=== PATIENT | male | born 1945 | race Caucasian/White ===

== ENCOUNTER 2023-06-17 07:05 | Outpatient (OUT) | payer MEDICARE, SELFPAY ==
[2023-06-17 07:45] LABS: Basophils Absolute Auto 0.1 10^3/uL (0.0-0.1); Basophils Percent Auto 1.1 % (0.2-2.0); Eosinophils Absolute Auto 0.3 10^3/uL (0.0-0.7); Eosinophils Percent Auto 3.1 % (0.9-7.0); Hematocrit 45.5 % (42.0-54.0); Hemoglobin 15.6 g/dL (14.0-18.0); Immature Granulocytes Abs Auto 0.04 10^3/uL (0.00-0.03); Immature Granulocytes Pct Auto 0.4 % (0.0-0.5); Lymphocytes Absolute Auto 2.4 10^3/uL (1.2-3.8); Lymphocytes Percent Auto 23.7 % (20.5-60.0); Mean Corpuscular HGB Conc 34.3 g/dL (29.9-35.2); Mean Corpuscular Hemoglobin 29.8 pg (25.9-34.0); Mean Platelet Volume 9.9 fL (9.5-13.5); Monocytes Absolute Auto 1.1 10^3/uL (0.3-0.8); Monocytes Percent Auto 10.8 % (1.7-12.0); Neutrophils Percent Auto 60.9 % (43.0-75.0); Platelet Count 265 10^3/uL (150-450); Red Blood Count 5.23 10^6/uL (4.70-6.10); Red Cell Distribution Width 11.9 % (11.0-15.0); White Blood Count 9.9 10^3/uL (4.0-11.0)
[2023-06-17 10:27] LABS: Alanine Aminotransferase 30 U/L (16-63); Albumin Level 3.8 g/dL (3.4-5.0); Alkaline Phosphatase 75 U/L (46-116); Anion Gap 9.5; Aspartate Amino Transferase 14 U/L (15-37); BUN Creatinine Ratio 6.9; Calcium 9.6 mg/dL (8.5-10.1); Carbon Dioxide 30.7 mmol/L (21.0-32.0); Chloride 98 mmol/L (98-107); Cholesterol 170 mg/dL (<=200); Estimated GFR (African America >60 (>=60); Estimated GFR (Non-African Ame >60 (>=60); Globulin 3.7 g/dL; Glucose 111 mg/dL (74-106); HDL Cholesterol 43 mg/dL (40-60); Potassium 3.2 mmol/L (3.5-5.1); Sodium 135 mmol/L (136-145); Total Protein 7.5 g/dL (6.4-8.2); Triglycerides 187 mg/dL (<=150); VLDL CHOLESTEROL 37.4 mg/dL
[2023-06-17 11:59] LABS: Prostate Specific Antigen Scrn <0.13 ng/mL (<=4.00)
== END 2023-06-17 07:06 | disposition home or self-care (01) ==
LOC: LAB 07:11
PROVIDERS: PCP Nurse Practitioner Family; Visit Provider Nurse Practitioner Family
DX: Z12.5 Encounter for screening for malignant neoplasm of prostate (principal); Z85.46 Personal history of malignant neoplasm of prostate; I10 Essential (primary) hypertension
CPT/HCPCS: 36415; 80053; 80061; 85025; G0103

== ENCOUNTER 2024-06-01 10:24 | Outpatient (OUT) | payer MEDICARE, SELFPAY ==
--- OUTSIDE RECORDS SUMMARY | 2024-06-01 10:36 | XMS_ITS | CCD ---
Author Organization [facility] Care Team Providers Care Egg Trayer Name Role Phone Justin George Unavailable DO Avery Gordon Primary Care Provider [phone] MD Justin George Attending Provider Avery Gordon Primary Care Physician [phone] MD Abdiel ROSAS Attending Unavailable HOUSE, DR GRULLON Consulting Unavailable HOUSE, DR GRULLON Primary Care Unavailable HOUSE, DR GRULLON Attending Unavailable HOUSE, DR GRULLON Admitting Unavailable ROSAS ., DR MARTINES Consulting Unavailable HOUSE, DR GRULLON Primary Care Unavailable ROSAS ., DR MARTINES Attending Unavailable ROSAS ., DR MARTINES Admitting Unavailable HOUSE, DR GRULLON Consulting Unavailable HOUSE, DR GRULLON Primary Care Unavailable HOUSE, DR GRULLON Attending Unavailable HOUSE, DR GRULLON Admitting Unavailable ZIEBER, DR NEIL Wilkerson Consulting Unavailable MARKER ., DR STANLEY Consulting Unavailable MARKER ., DR STANLEY Attending Unavailable MARKER ., DR STANLEY Admitting Unavailable HOUSE, DR GRULLON Primary Care Unavailable GRILLIS ., DR BLAS Leon Consulting Unavaila ble HOUSE, DR GRULLON Primary Care Unavailable GRILLIS ., DR BLAS Leon Attending Unavaila ble GRILLIS ., DR BLAS Leon Admitting Unavaila ble GRILLIS ., DR BLAS Leon Consulting Unavaila ble HOUSE, DR GRULLON Primary Care Unavailable GRILLIS ., DR BLAS Leon Attending Unavaila ble GRILLIS ., DR BLAS Leon Admitting Unavaila ble GRILLIS ., DR BLAS Leon Consulting Unavaila ble HOUSE, DR GRULLON Primary Care Unavailable GRILLIS ., DR BLAS Leon Attending Unavaila ble GRILLIS ., DR BLAS Leon Admitting Unavaila ble GRILLIS ., DR BLAS Leon Consulting Unavaila ble HOUSE, DR GRULLON Primary Care Unavailable GRILLIS ., DR BLAS Leon Attending Unavaila ble GRILLIS ., DR BLAS Leon Admitting Unavaila ble BENITEZ II, MARIELENA Consulting CHARISMA Ivey Consulting Unavailable PAULAILLIJames ., DR BLAS Leon Consulting Unavaila ble HOUSE, DR GRULLON Primary Care Unavailable CHUYITA ., DR BLAS Leon Attending Unavaila minoo BOOGIE ., DR BLAS Leon Admitting Unavaila AVRIL Stone Consulting Unavailable NOHEMY KOCH Consulting Unavailable MD Justin George Attending Provider [phone] NON STAFF Primary Care Provider UnavailEdwina Villa Unavailable DAVID Carty Primary Care Provider DAVID Zuniga Attending Provider Edwina Carty Primary Care Unavailable Oriana Zuniga Admitting Unavailable Oriana Zuniga Attending Unavailable Edwina Carty Attending Unavailable Edwina Carty Admitting Unavailable Edwina Carty Primary Care Unavailable Allergies Allergy Classification Reported Allergen(s) Allergy Type Date of Onset Reaction(s) Facility (1 source) bacitracin / neomycin / polymyxin b Drug Allergy Unknown [facility] Other (6 sources) Chocolate; Translations: [Chocolate] Propensity to adverse reactions Unknown (qualifier value) [facility] (7 sources) Milk Propensity to adverse reactions 4 Unknown, Unknown Reaction [facility] (3 sources) triple antibiotic Drug allergy Unknown [facility] Other (5 sources) Chocolate Allergy to substance 8 Swelling of Lip/Tongue/Thr oat [facility] (5 sources) butter Allergy to substance 8 Swelling of Lip/Tongue/Thr oat [facility] (5 sources) pizza hut pizza Allergy to substance 8 Swelling of Lip/Tongue/Thr oat [facility] (2 sources) Milk Products; Translations: [Milk Products] Drug allergy Unknown (qualifier value) [facility] (3 sources) Bacitracin Drug Allergy 4 Unknown Reaction [facility] (3 sources) Neomycin Drug Allergy 4 Unknown Reaction [facility] (3 sources) polymyxin B Allergy to substance Unknown Reaction [facility] Medications Current Medications Medication Drug Class(es) Dates Sig (Normalized) Sig (Original) calcium carbonate 1500 mg / cholecalciferol 800 unt chewable tablet (5 sources) Vitamin D Start: 11-28-2017 take 1 tablet by mouth once daily Calcium Carbonate-Vitamin D3 (Caltrate 600 Plus D) 600 mg (1,500 mg)-800 unit Tablet,Chewable Active 1 TAB PO Daily November 28, 2017 12:00am Centrum Silver (2 sources) Centrum Silver Active cholestyramine resin 4000 mg powder for oral suspension (8 sources) Bile Acid Sequestrant Start: 12-05-2023 take 9 g by mouth once daily Cholestyramine (With Sugar) Active 9 GM PO Daily 378 December 05, 2023 1:24pm mix in 8 oz of fluid Start: 12-05-2023 End: 12-05-2023 take 4 g by mouth once daily Cholestyramine (With Suga r) Discontinued 4 GM PO Daily 378 December 05, 2023 9:27am December 05, 2023 1:25pm mix in 8 oz of fluid Start: 12-05-2023 End: 12-05-2023 take 4 g by mouth once daily Cholestyramine (With Suga r) Discontinued 4 GM PO Daily 378 December 05, 2023 12:00am December 05, 2023 9:27am mix in 8 oz of fluid take 1 dose by mouth once daily Cholestyramine 4 GM 1 packet mixed with water or non-carbonated drink Orally Once a day Active fexofenadine hydrochloride 180 mg oral tablet (8 sources) Histamine-1 Receptor Antagonist Start: 09-21-2023 End: 12-05-2023 take 180 mg by mouth once daily Fexofenadine Active 180 MG PO Daily 90 90 December 05, 2023 9:27am Start: 05-29-2021 take 1 mg by mouth once daily fexofenadine 180 mg Tab mg tab(s), Oral, Daily, Refills(s) 0 Start Date: 05/29/21 Status: Ordered hydroCHLOROthiazide 25 mg oral tablet (16 sources) Thiazide Diuretic Start: 09-21-2023 End: 11-28-2023 take 25 mg by mouth once daily Hydrochlorothiazide Active 25 MG PO Daily 90 90 November 28, 2023 10:21am Start: 11-28-2017 End: 09-21-2023 take 1 tablet by mouth once daily Hydrochlorothiazide Discontinued 1 TAB PO Daily November 28, 2017 12:00am September 21, 2023 9:21am [facility]-four [facility] hydroCHLOROthiazide 25 MG 1 tablet in the morning Orally Once a day Active Milk of Magnesia 400 MG/5ML (1 source) take 5 mL by mouth four times daily as needed Milk of Magnesia 400 MG/5ML 5 ml as needed Orally Four times a day Active Multivitamin-Minerals- Lutein (3 sources) Start: 4 take 1 tablet by mouth once daily Multivitamin-Minerals -Lutein Active 1 TAB PO Daily September 21, 2023 12:00am pantoprazole 40 mg delayed release oral tablet (9 sources) Proton Pump Inhibitor Start: 4 End: 4 take 40 mg by mouth once daily Pantoprazole Active 40 MG PO Daily 90 90 November 28, 2023 10:21am Start: 07-26-2022 Pantoprazole [address] Tab Refills(s) 0 Start Date: 07/26/22 Status: Ordered potassium chloride 10 meq extended release oral tablet (12 sources) Start: 09-21-2023 End: 11-28-2023 take 10 mEq by mouth twice daily Potassium Chloride Active 10 MEQ PO Twice daily 180 90 November 28, 2023 10:21am Start: 09-21-2023 End: 09-21-2023 take 10 mEq by mouth twice daily Potassium Chloride Discontinued 10 MEQ PO Twice daily September 21, 2023 12:00am September 21, 2023 9:34am Start: 05-29-2021 [facility] daily potassium chloride 20 mEq ER Tab mEq tab(s), Oral, BID, Refills(s) 0 Start Date: 05/29/21 Status: Ordered take 1 capsule by [facility] every twelve hours Potassium Chloride ER 10 MEQ 1 capsule with food Orally Twice a day Active Completed/Discontinued Medications Medication Drug Class(es) Dates Sig (Normalized) Sig (Original) acetaminophen 325 mg / oxyCODONE hydrochloride 5 mg oral tablet (5 sources) Opioid Agonist Start: 04-09-2018 End: 09-21-2023 take 1 tablet by mouth every four to six hours Oxycodone-Acetamin ophen (Percocet) 5-325 mg tablet Discontinued 1 TAB PO EVERY 4-6 HOURS 20 April 09, 2018 September 21, 2023 9:21am cephalexin 500 mg oral capsule (10 sources) Cephalosporin Antibacterial Start: 04-09-2018 End: 09-21-2023 take 1 capsule by mouth once daily Cephalexin (Keflex) 500 mg capsule Discontinued 500 MG PO Daily April 09, 2018 11:10am September 21, 2023 9:20am Start: 03-29-2018 End: 04-09-2018 take 1 capsule by mouth every eight hours Cephalexin (Keflex) 500 mg capsule Discontinued 500 MG PO Q8H March 29, 2018 12:00am April 09, 2018 11:10am Cholestyramine-Aspartame (Cholestyramine Light) 4 gram powder in packet (3 sources) Start: 09-21-2023 End: 11-28-2023 Cholestyramine-Aspartame (Cholestyramine Light) 4 gram powder in packet Discontinued 1 EACH PO Daily September 21, 2023 12:00am November 28, 2023 9:41am cyclobenzaprine hydrochloride 10 mg oral tablet (5 sources) Muscle Relaxant Start: 03-29-2018 End: 09-21-2023 take 10 mg by mouth three times daily Cyclobenzaprine Discontinued 10 MG PO Three times daily March 29, 2018 12:00am September 21, 2023 9:21am docusate sodium 100 mg oral capsule (5 sources) Start: 04-09-2018 End: 09-21-2023 take 1 capsule by mouth once daily Docusate Sodium (Colace) 100 mg Capsule Discontinued 100 MG PO Daily April 09, 2018 12:00am September 21, 2023 9:21am Magnesium Hydroxide (11 sources) Start: 09-21-2023 End: 11-28-2023 take 1 mL by mouth four times daily Magnesium Hydroxide Discontinued 5 ML PO Four times daily September 21, 2023 12:00am November 28, 2023 9:41am Start: 03-20-2018 End: 04-09-2018 take 1 mL by mouth once daily Magnesium Hydroxide (Mil k Of Magnesia) 400 mg/5 mL Suspension Discontinued 15 - 30 ML PO Daily March 20, 2018 12:00am April 09, 2018 11:09am take 5 mL by mouth f our times daily as needed Milk of Magnesia 400 MG/5ML 5 ml as needed Orally Four times a day Active take 5 mL by mouth f our times daily as needed Milk of Magnesia 400 MG/5ML 5 ml as needed Orally Four times a day Active omeprazole 20 mg delayed release oral capsule (7 sources) Proton Pump Inhibitor Start: 03-20-2018 End: 09-21-2023 take 20 mg by mouth once daily Omeprazole Discontinued 20 MG PO Daily March 20, 2018 12:00am September 21, 2023 9:21am oxyCODONE hydrochloride 5 mg oral tablet (5 sources) Opioid Agonist Start: 03-29-2018 End: 09-21-2023 take 1 tablet by mouth every six hours Oxycodone (Roxicodone) 5 mg Tablet Discontinued 1 - 2 TAB PO Q6H 60 March 29, 2018 September 21, 2023 9:21am predniSONE 10 mg oral tablet (10 sources) Start: 04-09-2018 End: 09-21-2023 take 60 mg by mouth once daily, then take 40 mg by mouth once daily, then take 20 mg by mouth once daily, then take 10 mg by mouth once daily Prednisone Discontinued 10 MG PO Daily 39 April 09, 2018 12:00am September 21, 2023 9:21am 60mg daily x 3 days, 40 mg daily x 3 days, 20mg daily x 3 days, 10mg daily x 3 days Start: 03-29-2018 End: 09-21-2023 Prednisone Discontinued 1 do se pk PO per package directions March 29, 2018 12:00am September 21, 2023 9:21am take 4 tabs for 3 days then take 3 tabs for 3 days then take 2 tabs for 3 days then take 1 tab for 3 days Start: 03-29-2018 Prednisone Act daysi 1 dose pk PO per package directions March 29, 2018 12:00am take 4 tabs for 3 days then take 3 tabs for 3 days then take 2 tabs for 3 days then take 1 tab for 3 days Problems Active Problems Problem Classification Problem Date Documented Date Episodic/Chronic Cancer of prostate (10 sources) Personal history of malignant neoplasm of prostate; Translations: [History of malignant neoplasm of prostate] Onset: 07-26-2022 Episodic Cardiac dysrhythmias (5 sources) Supraventricular tachycardia; Translations: [Ventricular premature depolarization] Onset: 01-15-2022 Chronic Disorders of lipid metabolism (5 sources) Hyperlipidemia; Translations: [Hypertriglyceridemia] 01-11-2019 Chronic Esophageal disorders (9 sources) Gastroesophageal reflux disease; Translations: [Gastro-esophageal reflux disease without esophagitis] Onset: 03-24-2022 01-11-2019 Chronic Essential hypertension (10 sources) Hypertensive disorder; Translations: [Essential (primary) hypertension] Onset: 08-03-2022 01-11-2019 Chronic Genitourinary symptoms and ill-defined conditions (9 sources) Nocturia; Translations: [Nocturia] Onset: 05-17-2022 Episodic Other acquired deformities (4 sources) Lumbar spondylolisthesis; Translations: [Spondylolisthesis, lumbar region] Episodic Other acquired deformities (2 sources) Spondylolisthesis, lumbar region; Translations: [Spondylolisthesis of lumbar region M43.16] Onset: 04-09-2021 Resolved: 04-09-2021 Episodic Other acquired deformities (2 sources) Acquired spondylolisthesis; Translations: [Spondylolisthesis, lumbar region] Episodic Other aftercare (1 source) Other fdc (current) drug therapy; Translations: [[facility] CURRENT DRUG THERAPY] Onset: 08-03-2022 Episodic Other and unspecified benign neoplasm (5 sources) 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, face and neck; Translations: [SARAH LIPOMAT RADHA SKIN SUBQ HEAD NECK] Onset: 07-26-2022 Episodic Other connective tissue disease (2 sources) Arthrodesis status; Translations: [Arthrodesis status] Episodic Other connective tissue disease (2 sources) Triggering of digit; Translations: [Trigger finger, unspecified finger] 11-28-2023 Episodic Other connective tissue disease (1 source) History of lumbar fusion; Translations: [Arthrodesis status] 03-27-2024 Episodic Other male genital disorders (1 source) Impotence 04-30-2019 Chronic Other non-traumatic joint disorders (4 sources) Arthralgia of the pelvic region and thigh; Translations: [Pain in right hip] Episodic Other nutritional; endocrine; and metabolic disorders (1 source) Obesity, unspecified; Translations: [OBESITY UNSPECIFIED] Onset: 03-24-2022 Chronic Other nutritional; endocrine; and metabolic disorders (1 source) Body mass index (BMI) 33.0-33.9, adult; Translations: [BODY MASS INDEX BMI 33.0-33.9 ADULT] Onset: 03-24-2022 Chronic Other screening for suspected conditions (not mental disorders or infectious disease) (1 source) Encounter for screening for malignant neoplasm of prostate Episodic Other upper respiratory disease (4 sources) Seasonal allergy; Translations: [Other seasonal allergic rhinitis] 12-05-2023 Chronic Other upper respiratory disease (1 source) Other seasonal allergic rhinitis Chronic Residual codes; unclassified (1 source) Acquired absence of other specified parts of digestive tract; Translations: [ACQ ABSENCE OTH PART DIGESTV TRACT] Onset: 08-03-2022 Episodic Residual codes; unclassified (1 source) Acquired absence of other genital organ(s); Translations: [ACQUIRED ABSENCE OTH GENITAL ORGANS] Onset: 08-03-2022 Episodic Spondylosis; intervertebral disc disorders; other back problems (4 sources) Lumbosacral spondylosis; Translations: [Spondylosis without myelopathy or radiculopathy, lumbosacral region] Chronic Spondylosis; intervertebral disc disorders; other back problems (15 sources) Low back pain; Translations: [Low back pain] Onset: 04-09-2021 Resolved: 04-09-2021 Episodic Unclassified (1 source) CONTACT W/AND (SUSP) EXPOS COVID-19; Translations: [CONTACT W/AND (SUSP) EXPOS COVID-19] Onset: 03-17-2022 Past or Other Problems Problem Classification Problem Date Documented Date Episodic/Chronic Abdominal pain (5 sources) Right upper quadrant pain; Translations: [RIGHT UPPER QUADRANT PAIN] Onset: 01-08-2022 Episodic Acquired foot deformities (1 source) Foot drop, left foot; Translations: [Foot drop, left M21.372] Onset: 04-09-2021 Resolved: 04-09-2021 Episodic Biliary tract disease (6 sources) Other specified diseases of gallbladder; Translations: [Calculus of gallbladder without cholecystitis without obstruction] Onset: 01-15-2022 Episodic Cardiac dysrhythmias (4 sources) Palpitations; Translations: [PALPITATIONS] Onset: 01-13-2022 Episodic Results Test Name Value Interpretation Reference Range Facility Complete Blood Count Auto Di ffon 12-09-2024 Basophils (Bld) [#/Vol] 0.1 10*3/uL Normal 0.0-0.2 [facility] Comment on above: Order Comment: Reaso n for Exam Primary hypertension Result Comment: PERF ORMED BY: [place] [address] PATHOLOGIST SUPERVISOR YARD MARTELL LEW M.D. Performed By: #### L IPID, CBC, CMP #### [place] [address] [place] Basophils/100 WBC (Bld) 0.7 % Normal . [facility] Comment on above: Order Comment: Reaso n for Exam Primary hypertension Performed By: #### L IPID, CBC, CMP #### [place] [address] [place] Eosinophils (Bld) [#/Vol] 0.2 10*3/uL Normal 0.0-0.45 [facility] Comment on above: Order Comment: Reaso n for Exam Primary hypertension Performed By: #### L IPID, CBC, CMP #### [place] [address] [place] Eosinophils/100 WBC (Bld) 2.6 % Normal . [facility] Comment on above: Order Comment: Reaso n for Exam Primary hypertension Performed By: #### L IPID, CBC, CMP #### [place] [address] [place] Erythrocyte distribution width (RBC) [Ratio] 12.8 % Normal 12.0-14.8 [facility] Comment on above: Order Comment: Reaso n for Exam Primary hypertension Performed By: #### L IPID, CBC, CMP #### [place] [address] [place] Hematocrit (Bld) [Volume fraction] 45.7 % Normal 38.8-50.0 [facility] Comment on above: Order Comment: Reaso n for Exam Primary hypertension Performed By: #### L IPID, CBC, CMP #### [place] [address] [place] Hemoglobin (Bld) [Mass/Vol] 15.7 g/dL Normal 13.0-17.0 [facility] Comment on above: Order Comment: Reaso n for Exam Primary hypertension Performed By: #### L IPID, CBC, CMP #### [address] Lymphocytes (Bld) [#/Vol] 1.9 10*3/uL Normal 1.00-4.8 [facility] Comment on above: Order Comment: Reaso n for Exam Primary hypertension Performed By: #### L IPID, CBC, CMP #### [address] Lymphocytes/100 WBC (Bld) 22.1 % Normal . [facility] Comment on above: Order Comment: Reaso n for Exam Primary hypertension Performed By: #### L IPID, CBC, CMP #### [address] MCH (RBC) [Entitic mass] 30.1 pg Normal 27.5-35.2 [facility] Comment on above: Order Comment: Reaso n for Exam Primary hypertension Performed By: #### L IPID, CBC, CMP #### [address] MCV (RBC) [Entitic vol] 87.3 fL Normal 83.5-101 [facility] Comment on above: Order Comment: Reaso n for Exam Primary hypertension Performed By: #### L IPID, CBC, CMP #### [address] Mean Corpuscular HGB Conc 34.4 g/dL Normal 32.5-35.6 [facility] Comment on above: Order Comment: Reaso n for Exam Primary hypertension Performed By: #### L IPID, CBC, CMP #### [address] Monocytes (Bld) [#/Vol] 1.0 10*3/uL High 0.0-0.8 [facility] Comment on above: Order Comment: Reaso n for Exam Primary hypertension Performed By: #### L IPID, CBC, CMP #### [facility] [address] [place] [address] [place] Monocytes/100 WBC (Bld) 11.4 % Normal . [facility] Comment on above: Order Comment: Reaso n for Exam Primary hypertension Performed By: #### L IPID, CBC, CMP #### [facility] [address] [place] [address] [place] Neutrophils (Bld) [#/Vol] 5.5 10*3/uL Normal 1.8-7.7 [facility] Comment on above: Order Comment: Reaso n for Exam Primary hypertension Performed By: #### L IPID, CBC, CMP #### [facility] [address] [place] [address] [place] Neutrophils/100 WBC (Bld) 63.2 % Normal . [facility] Comment on above: Order Comment: Reaso n for Exam Primary hypertension Performed By: #### L IPID, CBC, CMP #### [facility] [address] [place] [address] [place] NRBC% 0.0 /100{WBC} Normal 0-0.5 [facility] Comment on above: Order Comment: Reaso n for Exam Primary hypertension Performed By: #### L IPID, CBC, CMP #### [facility] [address] [place] [address] [place] Platelet mean volume (Bld) [Entitic vol] 8.3 fL Normal 6.6-10.1 [facility] Comment on above: Order Comment: Reaso n for Exam Primary hypertension Performed By: #### L IPID, CBC, CMP #### [facility] [address] [place] [id number] [place] Platelets (Bld) [#/Vol] 239 10*3/uL Normal 150-450 [facility] Comment on above: Order Comment: Reaso n for Exam Primary hypertension Performed By: #### L IPID, CBC, CMP #### [facility] [address] [place] [address] [place] RBC (Bld) [#/Vol] 5.24 10*6/uL Normal 3.90-5.60 [facility] Comment on above: Order Comment: Reaso n for Exam Primary hypertension Performed By: #### L IPID, CBC, CMP #### [facility] [address] WBC (Bld) [#/Vol] 8.6 10*3/uL Normal 4.1-10.5 [facility] Comment on above: Order Comment: Reaso n for Exam Primary hypertension Performed By: #### L IPID, CBC, CMP #### [facility] [address] Comprehensive Metabolic Pane augustus 05-21-2024 Albumin [Mass/Vol] 4.4 g/dL Normal 3.5-5.7 [facility] Comment on above: Order Comment: Reaso n for Exam Primary hypertension Performed By: #### L IPID, CBC, CMP #### [facility] [address] Albumin/Globulin [Mass ratio] 1.8 {ratio} Normal [facility] Comment on above: Order Comment: Reaso n for Exam Primary hypertension Performed By: #### L IPID, CBC, CMP #### [facility] [address] [place] [id number] [place] ALP [Catalytic activity/Vol] 63 U/L Normal 34-104 [facility] Comment on above: Order Comment: Reaso n for Exam Primary hypertension Performed By: #### L IPID, CBC, CMP #### [facility] [address] [place] [id number] [place] ALT [Catalytic activity/Vol] 17 U/L Normal 7-52 [facility] Comment on above: Order Comment: Reaso n for Exam Primary hypertension Performed By: #### L IPID, CBC, CMP #### [facility] [address] [place] [id number] [place] Anion gap [Moles/Vol] 10.0 mmol/L Normal 6.0-15.0 [facility] Comment on above: Order Comment: Reaso n for Exam Primary hypertension Performed By: #### L IPID, CBC, CMP #### [facility] [address] [place] [id number] [place] AST [Catalytic activity/Vol] 14 U/L Normal 13-39 [facility] Comment on above: Order Comment: Reaso n for Exam Primary hypertension Performed By: #### L IPID, CBC, CMP #### [facility] [address] [place] [address] [place] Bilirubin [Mass/Vol] 1.0 mg/dL Normal 0.3-1.0 [facility] Comment on above: Order Comment: Reaso n for Exam Primary hypertension Performed By: #### L IPID, CBC, CMP #### [facility] [address] [place] [address] [place] Calcium [Mass/Vol] 10.0 mg/dL Normal 8.6-10.3 [facility] Comment on above: Order Comment: Reaso n for Exam Primary hypertension Performed By: #### L IPID, CBC, CMP #### [place] [address] [place] Chloride [Moles/Vol] 101 mmol/L Normal 98-107 [facility] Comment on above: Order Comment: Reaso n for Exam Primary hypertension Performed By: #### L IPID, CBC, CMP #### [facility] [address] [place] [address] [place] CO2 [Moles/Vol] 32.7 mmol/L High 21.0-31.0 [facility] Comment on above: Order Comment: Reaso n for Exam Primary hypertension Performed By: #### L IPID, CBC, CMP #### [facility] [address] [place] [address] [place] Creatinine [Mass/Vol] 1.09 mg/dL Normal 0.70-1.30 [facility] Comment on above: Order Comment: Reaso n for Exam Primary hypertension Performed By: #### L IPID, CBC, CMP #### [facility] [address] [place], [place] [id number] [place] GFR/1.73 sq M.predicted MDRD (S/P/Bld) [Vol rate/Area] mL/min/{1.73_m2} Normal [facility] [facility] Group Comment on above: Order Comment: Reaso n for Exam Primary hypertension Performed By: #### L IPID, CBC, CMP #### [facility] [address] Globulin (S) [Mass/Vol] 2.5 g/dL Normal [facility] Comment on above: Order Comment: Reaso n for Exam Primary hypertension Performed By: #### L IPID, CBC, CMP #### [facility] [address] Glucose [Mass/Vol] 110 mg/dL High 70-100 [facility] Comment on above: Order Comment: Reaso n for Exam Primary hypertension Result Comment: [place] Glucose Reference Range is dependent on time and content of last meal. Glucose of more than 200 mg/dL in a nonstressed, ambulatory subject supports the diagnosis of Diabetes Mellitus. ADA recommended reference range Performed By: #### L IPID, CBC, CMP #### [facility] [address] Potassium [Moles/Vol] 4.7 mmol/L Normal 3.5-5.1 [facility] Comment on above: Order Comment: Reaso n for Exam Primary hypertension Performed By: #### L IPID, CBC, CMP #### [facility] [address] [place] [address] [place] Protein [Mass/Vol] 6.9 g/dL Normal 6.4-8.9 [facility] Comment on above: Order Comment: Reaso n for Exam Primary hypertension Performed By: #### L IPID, CBC, CMP #### [facility] [address] [place] [id number] [place] Sodium [Moles/Vol] 139 mmol/L Normal 136-145 [facility] Comment on above: Order Comment: Reaso n for Exam Primary hypertension Performed By: #### L IPID, CBC, CMP #### [facility] [address] [place] [id number] [place] Urea nitrogen [Mass/Vol] 12 mg/dL Normal 7-25 [facility] Comment on above: Order Comment: Reaso n for Exam Primary hypertension Performed By: #### L IPID, CBC, CMP #### [facility] [address] Lipid Panelon 05-21-2024 Cholesterol [Mass/Vol] 176 mg/dL Normal 140-200 [facility] Comment on above: Order Comment: Rama raymond for Exam Primary hypertension Result Comment: Chol less than 200 mg/dl low risk Chol 201-239 mg/dl borderline risk Chol 240 mg/dl and greater high risk Performed By: #### L IPID, CBC, CMP #### [facility] [address] Cholesterol in HDL [Mass/Vol] 46 mg/dL Normal 23-92 [facility] Comment on above: Order Comment: Rama n for Exam Primary hypertension Result Comment: HDL CHOL ATP-III CLASSIFICATION Cardiovascular Risk HDL > or equal to 60 mg/dL LOW HDL < 40 mg/dL HIGH Performed By: #### L IPID, CBC, CMP #### [facility] [address] Cholesterol.total/ Cholesterol in HDL [Mass ratio] 3.8 {ratio} Normal <5.0 [facility] Comment on above: Order Comment: Rama raymond for Exam Primary hypertension Result Comment: PERF ORMED BY: [place] [address] PATHOLOGIST SUPERVISOR YARD MARTELL LEW M.D. Performed By: #### L IPID, CBC, CMP #### [facility] [address] LDL Cholesterol,Calcul ated 101 mg/dL High 0-100 [facility] Comment on above: Order Comment: Rama raymond for Exam Primary hypertension Result Comment: LDL ATP III CLASSIFICATION LDL less than 100 mg/dL Optimal LDL 100-129 mg/dL Near or above optimal LDL 130-159 mg/dL Borderline high LDL 160-189 mg/dL High LDL greater than 189 mg/dL Very high Performed By: #### L IPID, CBC, CMP #### [facility] [address] Triglyceride w/Reflex 144 mg/dL Normal 0-149 [facility] Comment on above: Order Comment: Rama raymond for Exam Primary hypertension Result Comment: TRIG ATP III CLASSIFICATION TRIG less than 150 mg/dL Normal TRIG 150-199 mg/dL Borderline high TRIG 200-500 mg/dL High TRIG greater than 500 mg/dL Very high Standard traceable to the Center for Disease Conrtrol and Prevention (CDC) test method. Performed By: #### L IPID, CBC, CMP #### [facility] [address] VLDL CHOLESTEROL 28 mg/dL Normal [facility] Comment on above: Order Comment: Reaso n for Exam Primary hypertension Performed By: #### L IPID, CBC, CMP #### [facility] [address] XR lumbar spine AP/LAT/FLX/E XTon 03-27-2024 XR lumbar spine AP/LAT/FLX/EXT [facility] [place] [address] [place] [address] XRay Report Signed Patient: Juan Luis Chandler MR#: [id number] : 1945 Acct:[id number] Age/Sex: 78 / M ADM Date: 03/27/24 Loc: Room: Type: [facility] Attending Dr: Oriana Zuniga APRN Copies to: Oriana Zuniga APRN Ordering Provider: Oriana Zuniga APRN Date of Service: 03/27/24 XR/XR lumbar spine AP/LAT/FLX/EXT: M48.06 - Spinal stenosis, lumbar region LUMBAR SPINE WITH FLEXION-EXTENSION VIEWS - 4 views COMPARISON: 03/29/2023 CLINICAL DATA: Follow-up lumbar fusion Standing AP as well as lateral views in neutral, flexion and extension were obtained. There is osteopenia. There is prior laminectomy and fusion with posterior rods, pedicle screws and interbody fusion device at the L4-5 level. The hardware appears intact and unchanged from the prior. There are no developing fractures. No significant displacement or instability is seen. The unfused disc spaces are maintained. There is minor endplate spurring. There is lower lumbar facet hypertrophy. The SI joints are intact. There is minimal atherosclerotic plaque at the aorta. XR/XR lumbar spine AP/LAT/FLX/EXT IMPRESSION: POSTOPERATIVE AND DEGENERATIVE CHANGES SIMILAR TO THE COMPARISON. Impression dictated by: Dinah Corrales M.D.03/27/2024 11:00 AM Dictation Location: [facility]- Transcribed By: [facility] 03/27/24 1100 Dictated By: Dinah Corrales MD 03/27/24 1059 Signed By: 03/27/24 1100 Normal [facility] Ambulatory Visit Summaryon 0 07-26-2022 Ambulatory Visit Summary JUAN LUIS CHANDLER :1945 Visit Date:07/26/2022 Ambulatory Visit Instructions Your Diagnosis History of malignant neoplasm of prostate Nocturia Tests Performed Urnls Dip Stick Auto w/o Microscopy POC 06939 Your Care Team Attending Physician - Abdiel ROSAS MD Primary Care Physician - Avery Gordon DO This Is Your Medications List Contact prescribing physician if questions or concerns fexofenadine (fexofenadine 180 mg Tab) hydrochlorothiazide (hydrochlorothiazide 12.5 mg Tab) pantoprazole (Pantoprazole [address] Tab) potassium chloride (potassium chloride 20 mEq ER Tab) Procedures Performed spine surgery (03/28/2018), Cystoscopy (01/05/2016), Cystoscopy (07/12/2011), Cystoscopy (09/13/2006), History of external beam radiation therapy (1999), Radical retropubic prostatectomy with bilateral pelvic lymphadenectomy (1998), Appendectomy, Cholecystectomy, Excision of cataract. Discharge Vitals Heart Rate (Peripheral) 80 Respiratory Rate 16 Blood Pressure 132/67 Height 167 cm Height 66 in Weight 90 kg Weight 198 lb BMI 32.27 What to do next You Need to Schedule the Following Appointments Follow Up with ARIANNA HUTTON, Abdiel Wilkerson, SIMONAL When: Where: [facility] [address], [place] [address]- Medications What How Much When Instructions Unchanged fexofenadine (fexofenadine 180 mg Tab) Every day Contact prescribing physician if questions or concerns Unchanged hydrochlorothiazide (hydrochlorothiazide 12.5 mg Tab) Every day Contact prescribing physician if questions or concerns Unchanged pantoprazole (Pantoprazole [address] Tab) Contact prescribing physician if questions or concerns Unchanged potassium chloride (potassium chloride 20 mEq ER Tab) 2 times a day Contact prescribing physician if questions or concerns Test Results Urnls Dip Stick Auto w/o Microscopy POC 36962 (07/26/2022) Bilirubin Urine Dipstick - Negative Blood Urine Dipstick - Trace-intact Glucose Urine Dipstick - Negative Ketones Urine Dipstick - Negative Leukocytes Urine Dipstick - Negative Nitrite Urine Dipstick - Negative Protein Urine Dipstick - Negative Specific [place]appen Urine Dipstick - 1.010 Urine Appearance Urine Dipstick - Clear Urine Color Urine Dipstick - Yellow Urobilinogen Urine Dipstick - Normal 0.2-1 EU/dl pH Urine Dipstick - 6 Allergies Chocolate (Unknown) Milk Products (Unknown) Problems Ongoing - Any problem that you are currently receiving treatment for. ED (erectile dysfunction) History of malignant neoplasm of prostate Incomplete bladder emptying Microscopic hematuria Nocturia Urinary retention Historical - Any problem that you are no longer receiving treatment for. GERD - Gastro-esophageal reflux disease Hyperlipidemia Hypertension Education Materials Cancer Screening for Men A cancer screening is a test or exam that checks for cancer. Your health care provider will recommend specific cancer screenings based on your age, personal history, and family history of cancer. Work with your health care provider to create a cancer screening schedule that protects your health. Why is cancer screening done? Cancer screening is done to look for cancer in the very early stages, before it spreads and becomes harder to treat and before you would start to notice symptoms. Finding cancer early improves the chances of successful treatment. It may save your life. Who should be screened for cancer? All men should be screened for colorectal cancer and skin cancer. Your health care provider may recommend screenings for other types of cancer if: ? You had cancer before. ? You have a family member with cancer. ? You have abnormal genes that could increase the risk of cancer. ? You have risk factors for certain cancers, such as smoking. When you should be screened for cancer depends on: ? Your age. ? Your medical history and your family's medical history. ? Certain lifestyle factors, such as smoking. ? Environmental exposure, such as to asbestos. What are some common cancer screenings? Lung cancer Lung cancer screening is done with a CT scan that looks for abnormal cells in the lungs. Discuss lung cancer screening with your health care provider if you are 55?74 years old and if any of the following apply to you: ? You currently smoke. ? You used to smoke heavily. ? You have a smoking history of 1 pack a day for 30 years or 2 packs a day for 15 years. ? You have quit smoking within the past 15 years. If you smoke heavily or if you used to smoke, you may need to be screened every year. Prostate cancer Prostate cancer screening is done with blood tests and an exam in which a health care provider uses a gloved finger to check prostate size (digital rectal exam). You may need to be screened for prostate cancer if: ? You have risk factors of prostate cancer, such as being [place] (more content not included)... Normal [facility] Ambulatory Visit Summary JUAN LUIS CHANDLER :1945 Visit Date:07/26/2022 Ambulatory Visit Instructions Your Diagnosis History of malignant neoplasm of prostate Nocturia Tests Performed Urnls Dip Stick Auto w/o Microscopy POC 69592 Your Care Team Attending Physician - Abdiel ROSAS MD Primary Care Physician - Avery Grodon DO This Is Your Medications List Contact prescribing physician if questions or concerns fexofenadine (fexofenadine 180 mg Tab) hydrochlorothiazide (hydrochlorothiazide 12.5 mg Tab) pantoprazole (Pantoprazole [address] Tab) potassium chloride (potassium chloride 20 mEq ER Tab) Procedures Performed spine surgery (03/28/2018), Cystoscopy (01/05/2016), Cystoscopy (07/12/2011), Cystoscopy (09/13/2006), History of external beam radiation therapy (1999), Radical retropubic prostatectomy with bilateral pelvic lymphadenectomy (1998), Appendectomy, Cholecystectomy, Excision of cataract. Discharge Vitals Heart Rate (Peripheral) 80 Respiratory Rate 16 Blood Pressure 132/67 Height 167 cm Height 66 in Weight 90 kg Weight 198 lb BMI 32.27 What to do next You Need to Schedule the Following Appointments Follow Up with Abdiel ROSAS MD, URL When: Where: [facility] [address] , [place] [address]- Medications What How Much When Instructions Unchanged fexofenadine (fexofenadine 180 mg Tab) Every day Contact prescribing physician if questions or concerns Unchanged hydrochlorothiazide (hydrochlorothiazide 12.5 mg Tab) Every day Contact prescribing physician if questions or concerns Unchanged pantoprazole (Pantoprazole [address] Tab) Contact prescribing physician if questions or concerns Unchanged potassium chloride (potassium chloride 20 mEq ER Tab) 2 times a day Contact prescribing physician if questions or concerns Test Results Urnls Dip Stick Auto w/o Microscopy POC 07274 (07/26/2022) Bilirubin Urine Dipstick - Negative Blood Urine Dipstick - Trace-intact Glucose Urine Dipstick - Negative Ketones Urine Dipstick - Negative Leukocytes Urine Dipstick - Negative Nitrite Urine Dipstick - Negative Protein Urine Dipstick - Negative Specific [place] Urine Dipstick - 1.010 Urine Appearance Urine Dipstick - Clear Urine Color Urine Dipstick - Yellow Urobilinogen Urine Dipstick - Normal 0.2-1 EU/dl pH Urine Dipstick - 6 Allergies Chocolate (Unknown) Milk Products (Unknown) Problems Ongoing - Any problem that you are currently receiving treatment for. ED (erectile dysfunction) History of malignant neoplasm of prostate Incomplete bladder emptying Microscopic hematuria Nocturia Urinary retention Historical - Any problem that you are no longer receiving treatment for. GERD - Gastro-esophageal reflux disease Hyperlipidemia Hypertension Education Materials Cancer Screening for Men A cancer screening is a test or exam that checks for cancer. Your health care provider will recommend specific cancer screenings based on your age, personal history, and family history of cancer. Work with your health care provider to create a cancer screening schedule that protects your health. Why is cancer screening done? Cancer screening is done to look for cancer in the very early stages, before it spreads and becomes harder to treat and before you would start to notice symptoms. Finding cancer early improves the chances of successful treatment. It may save your life. Who should be screened for cancer? All men should be screened for colorectal cancer and skin cancer. Your health care provider may recommend screenings for other types of cancer if: ? You had cancer before. ? You have a family member with cancer. ? You have abnormal genes that could increase the risk of cancer. ? You have risk factors for certain cancers, such as smoking. When you should be screened for cancer depends on: ? Your age. ? Your medical history and your family's medical history. ? Certain lifestyle factors, such as smoking. ? Environmental exposure, such as to asbestos. What are some common cancer screenings? Lung cancer Lung cancer screening is done with a CT scan that looks for abnormal cells in the lungs. Discuss lung cancer screening with your health care provider if you are 55?74 years old and if any of the following apply to you: ? You currently smoke. ? You used to smoke heavily. ? You have a smoking history of 1 pack a day for 30 years or 2 packs a day for 15 years. ? You have quit smoking within the past 15 years. If you smoke heavily or if you used to smoke, you may need to be screened every year. Prostate cancer Prostate cancer screening is done with blood tests and an exam in which a health care provider uses a gloved finger to check prostate size (digital rectal exam). You may need to be screened for prostate cancer if: ? You have risk factors of prostate cancer, such as being Afric (more content not included)... Normal [facility] Patient Educationon 07-26-19 Patient Education Oncology Cancer Screening for Men A cancer screening is a test or exam that checks for cancer. Your health care provider will recommend specific cancer screenings based on your age, personal history, and family history of cancer. Work with your health care provider to create a cancer screening schedule that protects your health. Why is cancer screening done? Cancer screening is done to look for cancer in the very early stages, before it spreads and becomes harder to treat and before you would start to notice symptoms. Finding cancer early improves the chances of successful treatment. It may save your life. Who should be screened for cancer? All men should be screened for colorectal cancer and skin cancer. Your health care provider may recommend screenings for other types of cancer if: ? You had cancer before. ? You have a family member with cancer. ? You have abnormal genes that could increase the risk of cancer. ? You have risk factors for certain cancers, such as smoking. When you should be screened for cancer depends on: ? Your age. ? Your medical history and your family's medical history. ? Certain lifestyle factors, such as smoking. ? Environmental exposure, such as to asbestos. What are some common cancer screenings? Lung cancer Lung cancer screening is done with a CT scan that looks for abnormal cells in the lungs. Discuss lung cancer screening with your health care provider if you are 55?74 years old and if any of the following apply to you: ? You currently smoke. ? You used to smoke heavily. ? You have a smoking history of 1 pack a day for 30 years or 2 packs a day for 15 years. ? You have quit smoking within the past 15 years. If you smoke heavily or if you used to smoke, you may need to be screened every year. Prostate cancer Prostate cancer screening is done with blood tests and an exam in which a health care provider uses a gloved finger to check prostate size (digital rectal exam). You may need to be screened for prostate cancer if: ? You have risk factors of prostate cancer, such as being or having a close family member with prostate cancer. ? You have inherited gene changes or a genetic condition, including BRCA1 or BRCA2 gene mutations or [place] syndrome. ? You have symptoms of prostate cancer, such as problems urinating or erectile dysfunction. Prostate cancer screening for men with average risk may start at age 50. Men with risk factors may need to be screened earlier at age 40?45. Once you have been screened for prostate cancer, future screening may be recommended based on the results of your blood tests. Colorectal cancer All adults should have screening for colorectal cancer starting at age 50 and continuing until age 75. Your health care provider may recommend screening at age 45. You will have tests every 1?10 years, depending on your results and the type of screening test. If you have a family history of colon or rectal cancer or other risk factors, you may need to start having screenings earlier. Talk with your health care provider about which screening test is right for you and how often you should be screened. Colorectal cancer screening looks for cancer or for growths called polyps that often form before cancer starts. Tests to look for cancer or polyps include: ? Colonoscopy or flexible sigmoidoscopy. For these procedures, a flexible tube with a small camera is inserted into the rectum. ? CT colonography. This test uses X-rays and a contrast dye to check the colon for polyps. If a polyp is found, you may need to have a colonoscopy so the polyp can be located and removed. Tests to look for cancer in the stool (feces) include: ? Guaiac-based fecal occult blood test (FOBT). This test detects blood in stool. It can be done at home with a kit. ? Fecal immunochemical test (FIT). This test detects blood in stool. For this test, you will need to collect stool samples at home. ? Stool DNA test. This test looks for blood in stool and any changes in DNA that can lead to colon cancer. For this test, you will need to collect a stool sample at home and send it to a lab. Skin cancer Skin cancer screening is done by checking the skin for unusual moles or spots and any changes in existing moles. Your health care provider should check your skin for signs of skin cancer at every physical exam. You should check your skin every month and tell your health care provider right away if anything looks unusual. Men with a pukrsa-cvhe-ldsjrs risk for skin cancer may want to see a transfer specialist (broommaking supervisor) for an annual body check. Where to find more information ? National Cancer [place]: https://www.cancer.gov/a bout-cancer/screening ? Centers for Disease Control and Prevention: https://www.cdc.gov/canc er/dcpc/prevention/osmar valleg.htm ? [place] [employer]: https://www.cancer.org/l atest-news/0-txxtdq-czaz mmfvr-ihsnk-mgg-men.html Contact a health care (more content not included)... Normal [facility] Urology Office/Clinic Noteon 07-26-2022 Urology Office/Clinic Note Chief Complaint 1yr PSA HPI Staff 1yr PSA due to Hx of Prostate Cancer & Nocturia. S/P Prostatectomy done in 1998. *No Urology Medications. PSA done 05/17/22 -<0.13 Still getting up 2x/night to void. Denies all other urinary complaints at this time. History of Present Illness Tests reviewed: reviewed UA, PSA. I have reviewed the previous health record information and history for this patient from Dr. Rosas. I have reviewed and verified the staff HPI to be accurate for this encounter. There have been no associated fever, chills, flank pain, or blood in the urine. Denies any urinary infections since last encounter. Review of Systems PHQ Score Initial Depression Screen Score: 0 ROS - Provider Constitutional: denies weight loss, denies hot flashes. Eyes: denies eye problems. Gastrointestinal: denies nausea, denies vomiting. Cardiovascular: denies chest pain or angina. Integumentary: no dryness Musculoskeletal: denies musculoskeletal symptoms. ENMT: denies otolaryngeal symptoms. Respiratory: no shortness of breath. Heme/Lymph: denies easy bleeding tendency, denies easy bruising tendency. Psychiatric: no confusion, no anxiety. Genitourinary: See HPI. Physical Exam Vitals & Measurements HR: 80(Peripheral) RR: 16 BP: 132/67 HT: 66 in HT: 167 cm WT: 90 kg WT: 198 lb BMI: 32.27 General Appearance: alert, no distress, well nourished, well developed male. Genitourinary: normal scrotum, normal testes, normal urethra, normal epididymis, normal vas deferens/spermatic cord. Flank Pain: none. Bladder: nonpalpable. Assessment/Plan 1. History of malignant neoplasm of prostate (Z85.46: Personal history of malignant neoplasm of prostate) S/p prostatectomy in 1998. S/p EBRT in 1999. Current PSA <0.13 on 05/17/22. PSA remains low and stable. Pt inquired about having his PCP monitor his PSA from now on. PCP to send PSAs to our office. Follow up PRN. Pt understands and agrees with plan. 2. Nocturia (R35.1: Nocturia) Ongoing, 2x/night, unchanged. UA today negative for blood and infection. Denies any other urinary habit complaints. Pt not taking any urologic meds at this time. Follow-up With When Contact Information ARIANNA HUTTON, Abdiel Wilkerson, URL [facility] [address], [place] [address]- Additional Instructions: PRN Patient Education Cancer Screening for Men I, Leena Preciado, personally scribed for Dr. Rosas on 07/26/2022 14:00:40. . Documentation recorded by the scribe, Leena Preciado, accurately reflects the services(s) I performed and decisions made by me. Authenticated by Dr. Rosas on 07/26/2022 14:01:40. Problem List/Past Medical History Ongoing ED (erectile dysfunction) History of malignant neoplasm of prostate Incomplete bladder emptying Microscopic hematuria Nocturia Urinary retention Historical GERD - Gastro-esophageal reflux disease Hyperlipidemia Hypertension Procedure/Surgical History spine surgery (03/28/2018), Cystoscopy (01/05/2016), Cystoscopy (07/12/2011), Cystoscopy (09/13/2006), History of external beam radiation therapy (1999), Radical retropubic prostatectomy with bilateral pelvic lymphadenectomy (1998), Appendectomy, Cholecystectomy, Excision of cataract. Medications fexofenadine 180 mg Tab, Oral, Daily hydrochlorothiazide 12.5 mg Tab, Oral, Daily Pantoprazole [address] Tab potassium chloride 20 mEq ER Tab, Oral, BID Allergies Chocolate (Unknown) Milk Products (Unknown) Social History Alcohol - Denies Alcohol Use, 01/11/2019 Substance Abuse - Denies Substance Abuse, 01/11/2019 Tobacco - Denies Tobacco Use, 01/11/2019 Never (less than 100 in lifetime) Tobacco Use:. Never Smokeless Tobacco Use:., 07/26/2022 Family History Bladder polyps: Father. Immunizations Vaccine Date Status SARS-CoV-2 (COVID-19) [id number] 05/09/2022 Recorded SARS-CoV-2 (COVID-19) mRNA BNT-162b2 vax 05/05/2021 Recorded SARS-CoV-2 (COVID-19) mRNA BNT-162b2 vax 09/02/2020 Recorded SARS-CoV-2 (COVID-19) mRNA BNT-162b2 vax 08/11/2020 Recorded influenza virus vaccine, inactivated 03/27/2020 Recorded influenza, whole 03/25/2010 Recorded Lab Results Ambulatory Point of Care Results Bilirubin Urine Dipstick: Negative (07/26/22 13:00:00) Blood Urine Dipstick: Trace-intact (07/26/22 13:00:00) Glucose Urine Dipstick: Negative (07/26/22 13:00:00) Ketones Urine Dipstick: Negative (07/26/22 13:00:00) Leukocytes Urine Dipstick: Negative (07/26/22 13:00:00) Nitrite Urine Dipstick: Negative (07/26/22 13:00:00) Protein Urine Dipstick: Negative (07/26/22 13:00:00) Specific Tappen Urine Dipstick: 1.010 (07/26/22 13:00:00) Urine Appearance Urine Dipstick: Clear (07/26/22 13:00:00) Urine Color Urine Dipstick: Yellow (07/26/22 13:00:00) Urobilinogen Urine Dipstick: Normal 0.2-1 EU/dl (07/26/22 13:00:00) pH Urine Dipstick: 6 (07/26/22 13:00:00) Normal [facility] Comment on above: Result Comment: Elec tronically Signed By: ARIANNA HUTTON, Abdiel Acosta\Date and Time Signed: 07/26/22 14:01 EST\.br\Electronically Co-Signed By: Leena Preciado P\.br\Date and Time Co-Signed: 07/26/22 14:00 EST PROF CHEM 8 (BAS METB)on Anion gap [Moles/Vol] 8.7 mmol/L Normal [facility] Comment on above: Performed By: #### B MP #### [facility] [address] [address] [address] Jaime Landa Calcium [Mass/Vol] 9.3 mg/dL Normal 8.5-10.1 [facility] Comment on above: Performed By: #### B MP #### [facility] [address] [address] [address] Jaime Landa Chloride [Moles/Vol] 101 mmol/L Normal 98-107 [facility] Comment on above: Performed By: #### B MP #### [facility] [address] [address] [address] Jaime Landa CO2 [Moles/Vol] 32.1 mmol/L Critically high 21.0-32.0 [facility] Comment on above: Performed By: #### B MP #### [facility] [address] [address] [address] Jaime Landa Creatinine [Mass/Vol] 1.02 mg/dL Normal 0.70-1.30 [facility] Comment on above: Performed By: #### B MP #### [facility] [address] [address] [address] Jaime Landa EGFR-AF ALGERIAN >60 Normal >=60 [facility] Comment on above: Performed By: #### B MP #### [facility] [address] [address] [address] Jaime Landa EGFR-NON AF ALGERIAN >60 Normal >=60 [facility] Comment on above: Performed By: #### B MP #### [facility] [address] [address] [address] Jaime Landa Glucose [Mass/Vol] 112 mg/dL Critically high 74-106 [facility] Comment on above: Performed By: #### B MP #### [facility] [address] [address] [address] Jaime Landa Potassium [Moles/Vol] 3.8 mmol/L Normal 3.5-5.1 [facility] Comment on above: Performed By: #### B MP #### [facility] [address] [address] [address] Jaime Landa Sodium [Moles/Vol] 138 mmol/L Normal 136-145 [facility] Comment on above: Performed By: #### B MP #### [facility] [address] [address] [address] Jaime Landa Urea nitrogen [Mass/Vol] 8.0 mg/dL Normal 7.0-18.0 [facility] Comment on above: Performed By: #### B MP #### [facility] [address] [place] [address] Dr. Jaime Landa Urea nitrogen/Creatinin e [Mass ratio] 7.8 mg/mg Normal [facility] Comment on above: Performed By: #### B MP #### [facility] [address] [address] [address] Jaime Landa Lab Reportson 05-23-2022 Lab Reports [id number] [facility] [id number]: 127 Normal [facility] CBC AUTO DIFFon 04-12-2022 BASO # 0.1 103/ul Normal 0.0-0.1 [facility] Comment on above: Performed By: #### C BC ####[facility] [address] [address]Dr. Jaime Landa Basophils/100 WBC (Bld) 1.2 % Normal 0.2-2.0 [facility] Comment on above: Performed By: #### C BC ####[facility] [address] [address]Dr. Jaime Landa EO # 0.2 103/ul Normal 0.0-0.7 [facility] Comment on above: Performed By: #### C BC ####[facility] [address] [address]Dr. Jaime Landa Eosinophils/100 WBC (Bld) 2.7 % Normal 0.9-7.0 [facility] Comment on above: Performed By: #### C BC ####[facility] [address] [address]Dr. Jaime Landa Erythrocyte distribution width (RBC) [Ratio] 12.5 % Normal 11.0-15.0 [facility] Comment on above: Performed By: #### C BC ####[facility] [address] [address]Dr. Jaime Landa Hematocrit (Bld) [Volume fraction] 44.7 % Normal 42.0-54.0 [facility] Comment on above: Performed By: #### C BC ####[facility] [address] [address]Dr. Jaime Landa Hemoglobin (Bld) [Mass/Vol] 15.1 g/dL Normal 14.0-18.0 [facility] Comment on above: Performed By: #### C BC ####[facility] [address] [place], [place] [address]Dr. Jaime Landa IG # 0.02 10e3/ul Normal 0.00-0.03 [facility] Comment on above: Performed By: #### C BC ####[facility] [address] [place], [place] [address]Dr. Jaime Landa IG % 0.3 % Normal 0.0-0.5 [facility] Comment on above: Performed By: #### C BC ####[facility] [address] [place], [place] [address]Dr. Jaime Landa LYMPH # 1.5 103/ul Normal 1.2-3.8 [facility] Comment on above: Performed By: #### C BC ####[facility] [address] [place], [place] [address]Dr. Jaime Landa Lymphocytes/100 WBC (Bld) 19.1 % Critically low 20.5-60.0 [facility] Comment on above: Performed By: #### C BC ####[facility] [address] [address]Dr. Jaime Cordell MANUAL DIFF REQ NO Normal [facility] Comment on above: Performed By: #### C BC ####[facility] [address] [address]Dr. Jaime Landa MCH (RBC) [Entitic mass] 29.4 pg Normal 25.9-34.0 [facility] Comment on above: Performed By: #### C BC ####[facility] Mor[address] [place], [place] [address]Dr. Jaime Cordell MCHC (RBC) [Mass/Vol] 33.8 g/dL Normal 29.9-35.2 [facility] Comment on above: Performed By: #### C BC ####[facility] X[address] [place], [place] [address]Dr. Jaime Cordell MCV (RBC) [Entitic vol] 87.1 fL Normal 80.0-94.0 [facility] Comment on above: Performed By: #### C BC ####[facility] B[address] [place], [place] [address]Dr. Jaime Cordell MONO # 0.7 103/ul Normal 0.3-0.8 [facility] Comment on above: Performed By: #### C BC ####[facility] [address] [place], [place] [address]Dr. Jaime Landa Monocytes/100 WBC (Bld) 9.5 % Normal 1.7-12.0 [facility] Comment on above: Performed By: #### C BC ####[facility] Bybcgq[address]sp[address] [place], [place] [address]Dr. Cristinapreet Cordell NEUT # 5.2 103/ul Normal 1.4-6.5 [facility] Comment on above: Performed By: #### C BC ####[facility] [address] [place], [place] [address]Dr. Cristinapreet Landa Neutrophils/100 WBC (Bld) 67.2 % Normal 43.0-75.0 [facility] Comment on above: Performed By: #### C BC ####[facility] [address] [place], [place] [address]Dr. Jaime Landa Platelet mean volume (Bld) [Entitic vol] 10.4 fL Normal 9.5-13.5 [facility] Comment on above: Performed By: #### C BC ####[facility] [address] [address]DrRadha Landa PLT 227 103/ul Normal 150-450 [facility] Comment on above: Performed By: #### C BC ####[facility] [address] [address]Dr. Jaime Lnada RBC 5.13 106/ul Normal 4.70-6.10 [facility] Comment on above: Performed By: #### C BC ####[facility] [address] [address]Dr. Jaime Landa WBC 7.8 103/ul Normal 4.0-11.0 [facility] Comment on above: Performed By: #### C BC ####[facility] [address] [address]DrRadha Landa PROF 14(COMP METB)on 022 Albumin [Mass/Vol] 3.9 g/dL Normal 3.4-5.0 [facility] Comment on above: Performed By: #### T 4, CMP, TSH #### [facility] [address] [address] [address] Jaime Landa Albumin/Globulin [Mass ratio] 1.1 {ratio} Normal [facility] Comment on above: Performed By: #### T 4, CMP, TSH #### [facility] [address] [address] [address] Jaime Landa ALP [Catalytic activity/Vol] 77 U/L Normal 46-116 [facility] Comment on above: Performed By: #### T 4, CMP, TSH #### [facility] [address] [address] [address] Jaime Landa ALT [Catalytic activity/Vol] 25 U/L Normal 16-63 [facility] Comment on above: Performed By: #### T 4, CMP, TSH #### [facility] [address] [address] [address] Jaime Landa Anion gap [Moles/Vol] 9.4 mmol/L Normal [facility] Comment on above: Performed By: #### T 4, CMP, TSH #### [facility] [address] [place] [address] Dr. Jaime Landa AST [Catalytic activity/Vol] 13 U/L Critically low 15-37 [facility] Comment on above: Performed By: #### T 4, CMP, TSH #### [facility] [address] [place] [address] Dr. Jaime Landa Bilirubin [Mass/Vol] 0.7 mg/dL Normal 0.2-1.0 [facility] Comment on above: Performed By: #### T 4, CMP, TSH #### [facility] [address] [place] [address] Dr. Jaime Landa Calcium [Mass/Vol] 9.3 mg/dL Normal 8.5-10.1 [facility] Comment on above: Performed By: #### T 4, CMP, TSH #### [facility] [address] [place] [address] Dr. Jaime Landa Chloride [Moles/Vol] 102 mmol/L Normal 98-107 [facility] Comment on above: Performed By: #### T 4, CMP, TSH #### [facility] [address] [place] [address] Dr. Jaime Landa CO2 [Moles/Vol] 30.6 mmol/L Normal 21.0-32.0 [facility] Comment on above: Performed By: #### T 4, CMP, TSH #### [facility] [address] [place] [address] Dr. Jaime Landa Creatinine [Mass/Vol] 0.90 mg/dL Normal 0.70-1.30 [facility] Comment on above: Performed By: #### T 4, CMP, TSH #### [facility] [address] [place] [address] Dr. Jaime Landa EGFR-AF ALGERIAN >60 Normal >=60 [facility] Comment on above: Performed By: #### T 4, CMP, TSH #### [facility] [address] [address] [address] Jaime Landa EGFR-NON AF ALGERIAN >60 Normal >=60 [facility] Comment on above: Performed By: #### T 4, CMP, TSH #### [facility] [address] [address] [address] Jaime Landa Globulin (S) [Mass/Vol] 3.5 g/dL Normal [facility] Comment on above: Performed By: #### T 4, CMP, TSH #### [facility] [address] [address] [address] Jaime Landa Glucose [Mass/Vol] 111 mg/dL Critically high 74-106 [facility] Comment on above: Performed By: #### T 4, CMP, TSH #### [facility] [address] [address] [address] Jaime Landa Potassium [Moles/Vol] 4.0 mmol/L Normal 3.5-5.1 [facility] Comment on above: Performed By: #### T 4, CMP, TSH #### [facility] [address] [address] [address] Jaime Landa Protein [Mass/Vol] 7.4 g/dL Normal 6.4-8.2 [facility] Comment on above: Performed By: #### T 4, CMP, TSH #### [facility] [address] [address] [address] Jaime Landa Sodium [Moles/Vol] 138 mmol/L Normal 136-145 [facility] Comment on above: Performed By: #### T 4, CMP, TSH #### [facility] [address] [address] [address] Jaime Landa Urea nitrogen [Mass/Vol] 6.0 mg/dL Critically low 7.0-18.0 [facility] Comment on above: Performed By: #### T 4, CMP, TSH #### [facility] [address] [address] [address] Jaime Landa Urea nitrogen/Creatinin e [Mass ratio] 6.7 mg/mg Normal [facility] Comment on above: Performed By: #### T 4, CMP, TSH #### [facility] [address] [place] [address] Dr. Jaime Landa T4on 04-12-2022 T4 [Mass/Vol] 6.20 ug/dL Normal 4.50-12.10 [facility] Comment on above: Performed By: #### T 4, CMP, TSH #### [facility] [address] [place] [address] Dr. Jaime Landa TSHon 04-12-2022 TSH 1.593 uIU/mL Normal 0.358-3.740 [facility] Comment on above: Performed By: #### T 4, CMP, TSH #### [facility] [address] [place] [address] Dr. Jaime Landa Covid-19 PCR (CVDTB)on SARS-CoV-2 (COVID-19) RNA CLAU+probe Ql (Unsp spec) Not detected Normal NOT DETECTED [facility] Comment on above: Result Comment: When diagnostic testing is negative, the possibility of a false negative should be considered in the context of a patient's recent exposures and the presence of clinical signs and symptoms consistent with SARS-CoV-2. This test is not yet approved or cleared by the [place] FDA. When there are no FDA-approved or cleared tests available, and other criteria are met, FDA can make tests available under an emergency access mechanism called an Emergency Use Authorization (EUA). The EUA for this test is supported by the Deputy County Attorney of Health and Human Service's declaration that circumstances exist to justify the emergency use of in vitro diagnostics for the detection and/or diagnosis of the virus that causes COVID-19. This EUA will remain in effect for the duration of the COVID-19 declaration justifying emergency of IVDs, unless it is terminated or revoked by the FDA (after which the test may no longer be used). Performed By: #### C VDTBH #### [facility] [address] [place] [address] Dr. Jaime Landa CBC AUTO DIFFon 03-09-2022 BASO # 0.1 103/ul Normal 0.0-0.1 [facility] Comment on above: Performed By: #### C BC #### [facility] [address] [address] [address] Jaime Landa Basophils/100 WBC (Bld) 1.1 % Normal 0.2-2.0 [facility] Comment on above: Performed By: #### C BC #### [facility] [address] [place] [address] Dr. Jaime Landa EO # 0.4 103/ul Normal 0.0-0.7 [facility] Comment on above: Performed By: #### C BC #### [facility] [address] [place] [address] Dr. Jaime Landa Eosinophils/100 WBC (Bld) 4.0 % Normal 0.9-7.0 [facility] Comment on above: Performed By: #### C BC #### [facility] [address] [place] [address] Dr. Jaime Landa Erythrocyte distribution width (RBC) [Ratio] 12.6 % Normal 11.0-15.0 [facility] Comment on above: Performed By: #### C BC #### [facility] [address] [place] [address] Dr. Jaime Landa Hematocrit (Bld) [Volume fraction] 45.6 % Normal 42.0-54.0 [facility] Comment on above: Performed By: #### C BC #### [facility] [address] [place] [address] Dr. Jaime Landa Hemoglobin (Bld) [Mass/Vol] 15.2 g/dL Normal 14.0-18.0 [facility] Comment on above: Performed By: #### C BC #### [facility] [address] [place] [address] Dr. Jaime Landa IG # 0.03 10e3/ul Normal 0.00-0.03 [facility] Comment on above: Performed By: #### C BC #### [facility] [address] [place] [address] Dr. Jaime Landa IG % 0.3 % Normal 0.0-0.5 [facility] Comment on above: Performed By: #### C BC #### [facility] [address] [address] [address] Jaime Landa LYMPH # 1.7 103/ul Normal 1.2-3.8 [facility] Comment on above: Performed By: #### C BC #### [facility] [address] [address] [address] Jaime Landa Lymphocytes/100 WBC (Bld) 18.0 % Critically low 20.5-60.0 [facility] Comment on above: Performed By: #### C BC #### [facility] [address] [address] [address] Jaime Landa MANUAL DIFF REQ NO Normal [facility] Comment on above: Performed By: #### C BC #### [facility] [address] [place] [address] Dr. Jaime Landa MCH (RBC) [Entitic mass] 29.0 pg Normal 25.9-34.0 [facility] Comment on above: Performed By: #### C BC #### [facility] [address] [place] [address] Dr. Jaime Landa MCHC (RBC) [Mass/Vol] 33.3 g/dL Normal 29.9-35.2 [facility] Comment on above: Performed By: #### C BC #### [facility] [address] [place] [address] Dr. Jaime Landa MCV (RBC) [Entitic vol] 87.0 fL Normal 80.0-94.0 [facility] Comment on above: Performed By: #### C BC #### [facility] [address] [place] [address] Dr. Jaime Landa MONO # 0.9 103/ul Critically high 0.3-0.8 [facility] Comment on above: Performed By: #### C BC #### [facility] [address] [place] [address] Dr. Jaime Landa Monocytes/100 WBC (Bld) 9.4 % Normal 1.7-12.0 [facility] Comment on above: Performed By: #### C BC #### [facility] [address] [address] [address] Jaime Landa NEUT # 6.2 103/ul Normal 1.4-6.5 [facility] Comment on above: Performed By: #### C BC #### [facility] [address] [address] [address] Jaime Landa Neutrophils/100 WBC (Bld) 67.2 % Normal 43.0-75.0 [facility] Comment on above: Performed By: #### C BC #### [facility] [address] [address] [address] Jaime Landa Platelet mean volume (Bld) [Entitic vol] 10.2 fL Normal 9.5-13.5 [facility] Comment on above: Performed By: #### C BC #### [facility] [address] [address] [address] Jaime Landa PLT 250 103/ul Normal 150-450 [facility] Comment on above: Performed By: #### C BC #### [facility] [address] [address] [address] Jaime Landa RBC 5.24 106/ul Normal 4.70-6.10 [facility] Comment on above: Performed By: #### C BC #### [facility] [address] [address] [address] Jaime Landa WBC 9.3 103/ul Normal 4.0-11.0 [facility] Comment on above: Performed By: #### C BC #### [facility] [address] [place] [address] Dr. Jaime Landa LIPASEon 03-09-2022 Lipase [Catalytic activity/Vol] 62.0 U/L Critically low 73.0-393.0 [facility] Comment on above: Performed By: #### C MP, LIPA ####[facility] [address] [address]Dr. Jaime Landa PROF 14(COMP METB)on 022 Albumin [Mass/Vol] 4.0 g/dL Normal 3.4-5.0 [facility] Comment on above: Performed By: #### C MP, LIPA ####[facility] [address] [address]Dr. Jaime Cordell Albumin/Globulin [Mass ratio] 1.3 {ratio} Normal [facility] Comment on above: Performed By: #### C MP, LIPA ####[facility] [address] [address]Dr. Jaime Cordell ALP [Catalytic activity/Vol] 77 U/L Normal 46-116 [facility] Comment on above: Performed By: #### C MP, LIPA ####[facility] [address] [address]Dr. Jaime Landa ALT [Catalytic activity/Vol] 23 U/L Normal 16-63 [facility] Comment on above: Performed By: #### C MP, LIPA ####[facility] [address] [place], [place] [address]Dr. Cristinapreet Cordell Anion gap [Moles/Vol] 13.7 mmol/L Normal [facility] Comment on above: Performed By: #### C MP, LIPA ####[facility] [address] [place], [place] [address]Dr. Jaime Cordell AST [Catalytic activity/Vol] 12 U/L Critically low 15-37 [facility] Comment on above: Performed By: #### C MP, LIPA ####[facility] [address] [address]Dr. Jaime Landa Bilirubin [Mass/Vol] 0.7 mg/dL Normal 0.2-1.0 [facility] Comment on above: Performed By: #### C MP, LIPA ####[facility] [address] [place], [place] [address]Dr. Jaime Landa Calcium [Mass/Vol] 9.2 mg/dL Normal 8.5-10.1 [facility] Comment on above: Performed By: #### C MP, LIPA ####[facility] [address] [place], [place] [address]Dr. Jaime Landa Chloride [Moles/Vol] 104 mmol/L Normal 98-107 [facility] Comment on above: Performed By: #### C MP, LIPA ####[facility] [address] [address]Dr. Jaime Landa CO2 [Moles/Vol] 27.2 mmol/L Normal 21.0-32.0 [facility] Comment on above: Performed By: #### C MP, LIPA ####[facility] [address] [place], [place] [address]Dr. Jaime Landa Creatinine [Mass/Vol] 0.89 mg/dL Normal 0.70-1.30 [facility] Comment on above: Performed By: #### C MP, LIPA ####[facility] [address] [place], [place] [address]Dr. Jaime Landa EGFR-AF ALGERIAN >60 Normal >=60 [facility] Comment on above: Performed By: #### C MP, LIPA ####[facility] [address] [place], [place] [address]Dr. Cristinapreet Cordell EGFR-NON AF ALGERIAN >60 Normal >=60 [facility] Comment on above: Performed By: #### C SAKINA, LIPA ####[facility] [address] [place], [place] [address]Dr. Jaime Landa Globulin (S) [Mass/Vol] 3.2 g/dL Normal [facility] Comment on above: Performed By: #### C MP, LIPA ####[facility] [address] [place], [place] [address]Dr. Jaime Landa Glucose [Mass/Vol] 108 mg/dL Critically high 74-106 [facility] Comment on above: Performed By: #### C MP, LIPA ####[facility] [address] [place], [place] [address]Dr. Jaime Landa Potassium [Moles/Vol] 3.9 mmol/L Normal 3.5-5.1 [facility] Comment on above: Performed By: #### C MP, LIPA ####[facility] [address] [place], [place] [address]Dr. Jaime Landa Protein [Mass/Vol] 7.2 g/dL Normal 6.4-8.2 [facility] Comment on above: Performed By: #### C MP, LIPA ####[facility] [address] [address]Dr. Jaime Landa Sodium [Moles/Vol] 141 mmol/L Normal 136-145 [facility] Comment on above: Performed By: #### C MP, LIPA ####[facility] [address] [address]Dr. Jaime Landa Urea nitrogen [Mass/Vol] 7.0 mg/dL Normal 7.0-18.0 [facility] Comment on above: Performed By: #### C SAKINA, LIPA ####[facility] [address] [address]Dr. Jaime Landa Urea nitrogen/Creatinin e [Mass ratio] 7.9 mg/mg Normal [facility] Comment on above: Performed By: #### C SAKINA LIPA ####[facility] [address] [address]Dr. Jaime Lanad CBC AUTO DIFFon 01-13-2022 BASO # 0.1 103/ul Normal 0.0-0.1 [facility] Comment on above: Performed By: #### C BC #### [facility] [address] [address] Dr. Jaime Landa Basophils/100 WBC (Bld) 0.9 % Normal 0.2-2.0 [facility] Comment on above: Performed By: #### C BC #### [facility] [address] [address] [address] Jaime Landa EO # 0.5 103/ul Normal 0.0-0.7 [facility] Comment on above: Performed By: #### C BC #### [facility] [address] [place] [address] Dr. Jaime Landa Eosinophils/100 WBC (Bld) 5.1 % Normal 0.9-7.0 [facility] Comment on above: Performed By: #### C BC #### [facility] [address] [place] [address] Dr. Jaime Landa Erythrocyte distribution width (RBC) [Ratio] 12.7 % Normal 11.0-15.0 [facility] Comment on above: Performed By: #### C BC #### [facility] [address] [place] [address] Dr. Jaime Landa Hematocrit (Bld) [Volume fraction] 42.6 % Normal 42.0-54.0 [facility] Comment on above: Performed By: #### C BC #### [facility] [address] [place] [address] Dr. Jaime Landa Hemoglobin (Bld) [Mass/Vol] 14.7 g/dL Normal 14.0-18.0 [facility] Comment on above: Performed By: #### C BC #### [facility] [address] [place] [address] Dr. Jaime Landa IG # 0.04 10e3/ul Critically high 0.00-0.03 [facility] Comment on above: Performed By: #### C BC #### [facility] [address] [place] [address] Dr. Jaime Landa IG % 0.4 % Normal 0.0-0.5 [facility] Comment on above: Performed By: #### C BC #### [facility] [address] [place] [address] Dr. Jaime Landa LYMPH # 2.9 103/ul Normal 1.2-3.8 [facility] Comment on above: Performed By: #### C BC #### [facility] [address] [place] [address] Dr. Jaime Landa Lymphocytes/100 WBC (Bld) 27.2 % Normal 20.5-60.0 [facility] Comment on above: Performed By: #### C BC #### [facility] [address] [place] [address] Dr. Jaime Landa MANUAL DIFF REQ NO Normal [facility] Comment on above: Performed By: #### C BC #### [facility] [address] [place] [address] Dr. Jaime Landa MCH (RBC) [Entitic mass] 30.0 pg Normal 25.9-34.0 [facility] Comment on above: Performed By: #### C BC #### [facility] [address] [place] [address] Dr. Jaime Landa MCHC (RBC) [Mass/Vol] 34.5 g/dL Normal 29.9-35.2 [facility] Comment on above: Performed By: #### C BC #### [facility] [address] [place] [address] Dr. Jaime Landa MCV (RBC) [Entitic vol] 86.9 fL Normal 80.0-94.0 [facility] Comment on above: Performed By: #### C BC #### [facility] [address] [place] [address] Dr. Jaime Landa MONO # 1.2 103/ul Critically high 0.3-0.8 [facility] Comment on above: Performed By: #### C BC #### [facility] [address] [place] [address] Dr. Jaime Landa Monocytes/100 WBC (Bld) 10.9 % Normal 1.7-12.0 [facility] Comment on above: Performed By: #### C BC #### [facility] [address] [place] [address] Dr. Jaime Landa NEUT # 5.9 103/ul Normal 1.4-6.5 [facility] Comment on above: Performed By: #### C BC #### [facility] [address] [place] [address] Dr. Jaime Landa Neutrophils/100 WBC (Bld) 55.5 % Normal 43.0-75.0 [facility] Comment on above: Performed By: #### C BC #### [facility] [address] [place] [address] Dr. Jaime Landa Platelet mean volume (Bld) [Entitic vol] 9.9 fL Normal 9.5-13.5 [facility] Comment on above: Performed By: #### C BC #### [facility] [address] [address] [address] Jaime Landa PLT 229 103/ul Normal 150-450 [facility] Comment on above: Performed By: #### C BC #### [facility] [address] [address] [address] Jaime Landa RBC 4.90 106/ul Normal 4.70-6.10 [facility] Comment on above: Performed By: #### C BC #### [facility] [address] [address] [address] Jaime Landa WBC 10.6 103/ul Normal 4.0-11.0 [facility] Comment on above: Performed By: #### C BC #### [facility] [address] [address] [address] Jaime Landa LIPASEon 01-13-2022 Lipase [Catalytic activity/Vol] 89.0 U/L Normal 73.0-393.0 [facility] Comment on above: Performed By: #### H STROPN, CMP, LIPA ####[facility] [address] [address]DrRadha Landa PROF 14(COMP METB)on 022 Albumin [Mass/Vol] 3.8 g/dL Normal 3.4-5.0 [facility] Comment on above: Performed By: #### H STROPN, CMP, LIPA ####[facility] [address] [address]DrRadha Landa Albumin/Globulin [Mass ratio] 1.1 {ratio} Normal [facility] Comment on above: Performed By: #### H STROPN, CMP, LIPA ####[facility] [address] [address]DrRadha Landa ALP [Catalytic activity/Vol] 78 U/L Normal 46-116 [facility] Comment on above: Performed By: #### H STROPN, CMP, LIPA ####[facility] [address] [address]DrRadha Landa ALT [Catalytic activity/Vol] 19 U/L Normal 16-63 [facility] Comment on above: Performed By: #### H STROPN, CMP, LIPA ####[facility] [address] [address]Dr. Jaime Landa Anion gap [Moles/Vol] 12.9 mmol/L Normal [facility] Comment on above: Performed By: #### H STROPN, CMP, LIPA ####[facility] [address] [address]Dr. Jaime Landa AST [Catalytic activity/Vol] 11 U/L Critically low 15-37 [facility] Comment on above: Performed By: #### H STROPN, CMP, LIPA ####[facility] [address] [place], [place] [address]Dr. Jaime Landa Bilirubin [Mass/Vol] 0.4 mg/dL Normal 0.2-1.0 [facility] Comment on above: Performed By: #### H STROPN, CMP, LIPA ####[facility] [address] [place], [place] [address]Dr. Jaime Landa Calcium [Mass/Vol] 9.2 mg/dL Normal 8.5-10.1 [facility] Comment on above: Performed By: #### H STROPN, CMP, LIPA ####[facility] [address] [place], [place] [address]Dr. Jaime Landa Chloride [Moles/Vol] 101 mmol/L Normal 98-107 [facility] Comment on above: Performed By: #### H STROPN, CMP, LIPA ####[facility] [address] [place], [place] [address]Dr. Jaime Landa CO2 [Moles/Vol] 27.2 mmol/L Normal 21.0-32.0 [facility] Comment on above: Performed By: #### H STROPN, CMP, LIPA ####[facility] [address] [address]Dr. Jaime Landa Creatinine [Mass/Vol] 1.10 mg/dL Normal 0.70-1.30 [facility] Comment on above: Performed By: #### H STROPN, CMP, LIPA ####[facility] [address] [id number]. Jaime Landa EGFR-AF ALGERIAN >60 Normal >=60 [facility] Comment on above: Performed By: #### H STROPN, CMP, LIPA ####[facility] [address] [address]Dr. Jaime Landa EGFR-NON AF ALGERIAN >60 Normal >=60 [facility] Comment on above: Performed By: #### H STROPN, CMP, LIPA ####[facility] [address] [address]Dr. Jaime Landa Globulin (S) [Mass/Vol] 3.4 g/dL Normal [facility] Comment on above: Performed By: #### H STROPN, CMP, LIPA ####[facility] [address] [address]Dr. Jaime Landa Glucose [Mass/Vol] 135 mg/dL Critically high 74-106 [facility] Comment on above: Performed By: #### H STROPN, CMP, LIPA ####[facility] [address] [address]Dr. Jaime Landa Potassium [Moles/Vol] 3.1 mmol/L Critically low 3.5-5.1 [facility] Comment on above: Performed By: #### H STROPN, CMP, LIPA ####[facility] [address] [address]Dr. Jaime Landa Protein [Mass/Vol] 7.2 g/dL Normal 6.4-8.2 [facility] Comment on above: Performed By: #### H STROPN, CMP, LIPA ####[facility] [address] [address]. Jaime Landa Sodium [Moles/Vol] 138 mmol/L Normal 136-145 [facility] Comment on above: Performed By: #### H STROPN, CMP, LIPA ####[facility] [address] [address]Dr. Jaime Landa Urea nitrogen [Mass/Vol] 7.0 mg/dL Normal 7.0-18.0 [facility] Comment on above: Performed By: #### H STROPN, CMP, LIPA ####[facility] [address] [place], [place] [address]QrDr. Jaime Landa Urea nitrogen/Creatinin e [Mass ratio] 6.4 mg/mg Normal [facility] Comment on above: Performed By: #### H STROPN, CMP, LIPA ####[facility] [address] [place], [place] [address]VuDr. Jaime Landa TROPONIN, HIGH SENSITIVITYon 01-13-2022 HSTROP 5.3 pg/mL Normal 4.0-76.1 [facility] Comment on above: Result Comment: CUT- OFF POINTS HAVE BEEN ESTABLISHED BASED ON THE FOURTH UNIVERSAL DEFINITIONS OF MYOCARDIAL INFARCTION. THE UPPER REFERENCE LIMIT (URL) OF TROPONIN, DEFINED THE 99TH PERCENTILE OF cTnI DISTRIBUTION IN A REFERENCE POPULATION, HAS BEEN CONFIRMED THE DECISION THRESHOLD FOR LA DIAGNOSIS. Performed By: #### H STROPN, CMP, LIPA #### [facility] [address] [address] [address] Jaime Landa NM HEPATOBILIARY SCAN W EFon 01-08-2022 NM HEPATOBILIARY SCAN W EF EXAMINATION: NM HEPATOBILIARY SCAN W EF HISTORY: Right upper quadrant pain COMPARISON: No relevant comparison available. TECHNIQUE: Radionuclide hepatobiliary imaging was performed after intravenous injection of 4.9 mCi Tc-99m GINO derivative with sequential acquisitions every 1 minute for one hour. Hepatobiliary imaging with gallbladder ejection fraction analysis was then performed with sequential imaging every 1 minute for 60 minutes following ingestion of 8 ounces Ensure Plus. FINDINGS: LIVER: Normal, prompt and uniform radiotracer uptake and clearing. BILIARY DUCTS: Normal radioisotopic biliary excretion. GALLBLADDER: Normal filling of gallbladder with radiotracer. INTESTINE: Normal with no evidence of common biliary ductal obstruction. EJECTION FRACTION: 3 % within 60 minutes. (Normal EF > 38%). OTHER: Negative. IMPRESSION: 1. Relatively no emptying of gallbladder despite normal filling; ball-valve type obstruction versus biliary dyskinesia. Electronically authenticated by: NEIL MILIAN Date: 2022-01-08 09:58 Normal [facility] Vital Signs Date Time Vital Sign Value Performing Clinician Facility 03-27-2024 09:30-0400 Body height 167.64 cm DAVID Kellyfer Carloz Work Phone: [facility] 03-27-2024 09:30-0400 Body mass index (BMI) [Ratio] 33.7 kg/m2 [employer] SAL[employer] CONSULTANTThai Bland Carloz Work Phone: [facility] 03-27-2024 09:30-0400 Body weight 95 kg [employer] SAL[employer] CONSULTANTThai Bland Carloz Work Phone: [facility] 11-28-2023 09:35-0400 Body height 167.64 cm [facility] 11-28-2023 09:35-0400 Body mass index (BMI) [Ratio] 34.2 kg/m2 [facility] 11-28-2023 09:35-0400 Body weight 96.16 kg [facility] 11-28-2023 09:35-0400 Diastolic blood pressure 78 mm[Hg] [facility] 11-28-2023 09:35-0400 Heart rate 65 /min [facility] 11-28-2023 09:35-0400 SaO2% (BldA) [Mass fraction] 96 % [facility] 11-28-2023 09:35-0400 Systolic blood pressure 124 mm[Hg] [facility] 05-31-2023 13:30-0500 Body height 167.64 cm Edwina Carty Other [facility] Other 05-31-2023 13:30-0500 Body mass index (BMI) [Ratio] 35.18 kg/m2 Edwina Carty Other [facility] Other 05-31-2023 13:30-0500 Body weight 98.88 kg Edwina Carty Other [facility] Other 05-31-2023 13:30-0500 Diastolic blood pressure 86 mm[Hg] Edwina Carty Other [facility] Other 05-31-2023 13:30-0500 SaO2% (BldA) [Mass fraction] 97 % Edwina Carty Other [facility] Other 05-31-2023 13:30-0500 Systolic blood pressure 136 mm[Hg] Edwina Carty Other [facility] Other 07-26-2022 13:00-0500 Blood Pressure Location Abdiel Homeforswap [facility] 07-26-2022 13:00-0500 Diastolic blood pressure 67 mm[Hg] Abdiel ROSAS [facility] 07-26-2022 13:00-0500 Heart rate 80 /min Abdielabena ROSAS [facility] 07-26-2022 13:00-0500 Respiratory rate 16 /min Abdielabena ROSAS [facility] 07-26-2022 13:00-0500 Systolic blood pressure 132 mm[Hg] Abdiel ROSAS [facility] 04-06-2022 10:00-0400 Body height 167.64 cm Justin George Other [facility] Other 04-09-2021 10:00-0400 Body height 167.64 cm Justin George Other [facility] Other 04-09-2021 10:00-0400 Body mass index (BMI) [Ratio] 35.67 kg/m2 Justin George Other [facility] Other 04-09-2021 10:00-0400 Body weight 100.25 kg Justin George Other [facility] Other 04-09-2021 10:00-0400 Diastolic blood pressure 86 mm[Hg] Justin George Other [facility] Other 04-09-2021 10:00-0400 Systolic blood pressure 145 mm[Hg] Justin George Other [facility] Other Encounters Encounter Date Encounter Type Care Provider Facility Start: 05-21-2024 End: 05-21-2024 ambulatory Edwina Carty Facility:[facility] Start: 03-27-2024 End: 03-27-2024 Patient encounter procedure DAVID Carty Work Phone: [facility] Work Phone: Start: 03-27-2024 End: 03-27-2024 ambulatory DAVID Carty Work Phone: [facility] Work Phone: Start: 11-28-2023 End: 11-28-2023 ambulatory [facility] Work Phone: Start: 11-28-2023 End: 11-28-2023 Patient encounter procedure [facility] Work Phone: Start: 06-20-2023 End: 06-20-2023 ambulatory Edwina Carty Other [facility] Other Start: 06-20-2023 Telephone encounter Edwina medrano [facility] Start: 05-31-2023 End: 05-31-2023 ambulatory Edwina Carty Other [facility] Other Start: 05-31-2023 Office outpatient ne w 30 minutes Edwina Carty [facility] Start: 03-29-2023 End: 03-29-2023 ambulatory NON STAFF [facility] Work Phone: Start: 03-29-2023 End: 03-29-2023 Patient encounter procedure MD Justin George Work Phone: [facility] Work Phone: Start: 07-28-2022 End: 07-28-[address] BLAS BOOGIE . Facility:[facility] Start: 07-26-2022 Encounter for preprocedural laboratory examination DR BLAS BOOGIE . [facility] Start: 07-26-2022 End: 07-27-2022 ambulatory MD Abdiel ROSAS Facility:[facility] Start: 07-26-2022 End: 07-26-2022 Patient encounter procedure Abdiel ROSAS [facility] Start: 07-22-2022 End: 07-23-[address] BLAS BOOGIE . Facility:[facility] Start: 07-22-2022 End: 07-23-2022 Encounter for preprocedural laboratory examination DR BLAS BOOGIE . Facility:[facility] Start: 05-17-2022 End: 05-18-[address] ABDIEL ROSAS . Facility:[facility] Start: 04-12-2022 End: 04-13-[address] AVERY GORDON Facility:[facility] Start: 04-06-2022 Office outpatient vi sit 15 minutes Justin George [facility] Start: 04-06-2022 End: 04-06-2022 ambulatory DO Avery Gordon Work Phone: [email or web address] Other Start: 04-06-2022 End: 04-06-2022 Patient encounter procedure DO Avery Gordon Work Phone: [facility] Start: 03-17-2022 End: 03-17-[address] BLAS BOOGIE . Facility:[facility] Start: 03-13-2022 End: 03-14-[address] BLAS BOOGIE . Facility:[facility] Start: 03-09-2022 End: 03-10-[address] BLAS BOOGIE . Facility:[facility] Start: 01-13-2022 End: 01-14-[address] JADEN MARIANO . Facility:[facility] Start: 01-08-2022 End: 01-09-[address] AVERY GORDON Facility:[facility] Start: 04-09-2021 Office outpatient vi sit 15 minutes Justin George [facility] Procedures Date Procedure Procedure Detail Performing Clinician Start: 03-27-2024 X-ray of lumbar spin e, four views DAVID Carty Work Phone: Start: 03-29-2023 X-ray of lumbar spin e, four views MD Justin George Work Phone: Start: 05-17-[address] LENNY GORDON Comment on above: Performed By: #### P SAD #### [facility] [address] [place] [address] Dr. Jaime Landa Start: 04-06-2022 X-ray of lumbar spin e, four views DO Avery Gordon Work Phone: Start: 03-28-2018 spine surgery Abdiel UGALDE Start: 01-05-2016 Cystoscopy Abdiel RIOS Start: 07-12-2011 Cystoscopy Abdiel RIOS Start: 09-13-2006 Cystoscopy Abdiel RIOS Start: 06-13-1999 History of external beam radiation therapy Abdiel ROSAS Comment on above: Prostate Start: 06-13-1998 Radical retropubic prostatectomy with bilateral pelvic lymphadenectomy Abdiel ROSAS Appendectomy Abdiel ROSAS Cholecystectomy Abdiel CASIANO Extraction of cataract Clarissa ROSAS Plan of Treatment Date Care Activity Detail Author Start: 03-27-2024 X-ray of lumbar spin e, four views XR lumbar spine AP/LAT/FLX/EXT [facility] Start: 03-27-2024 XR Lumbar spine 4 Views [facility] Comprehensive metabo lic 2000 panel - Serum or Plasma [facility] XR Lumbar spine 4 Views [facility] Immunizations Immunization Date Immunization Notes Care Provider Fa cility 05-09-2022 SARS-CoV-2 (COVID-19 ) [id number] Abdiel ROSAS [facility] 05-05-2021 SARS-CoV-2 (COVID-19 ) mRNA BNT-162b2 vax Abdiel ROSAS [facility] 09-02-2020 SARS-CoV-2 (COVID-19 ) mRNA BNT-162b2 vax Abdiel ROSAS [facility] 08-11-2020 SARS-CoV-2 (COVID-19 ) mRNA BNT-162b2 vax Abdiel ROSAS [facility] 03-27-2020 influenza virus vaccine, unspecified formulation Abdiel ROSAS [facility] 03-25-2010 influenza, whole Abdiel STARR [facility] Payers Date Payer Category Payer Medicare [id number] 1959 Medicare [id number] 1959 Unknown [id number] 1945 Unknown [id number] 1945 Unknown [id number] 1945 Unknown [id number] 1945 Unknown [id number] 1945 Unknown [id number] 1945 Unknown [id number] 1945 Unknown [id number] 1945 Unknown [id number] 1945 Unknown [id number] 1945 Unknown [id number] Private Health [facility] [id number] Self-pay Self Pay [id number] Social History Date Type Detail Facility Unknown if ever smoked [facility] Other Sex Assigned At [facility] Start: 04-09-2018 End: 11-28-2023 Tobacco smoking status NHIS Never smoked tobacco (finding) [facility] Start: 1945 Sex Assigned At Male [facility] Tobacco smoking status Never [facility] Medical Equipment Procedure Code Equipment Code Equipment Origin al Text Equipment Identifier Dates ALLOGRAFT 12MM T LIF LORDOTIC FDA Start: 03-27-2018 SCREW SET CAPLOX II FDA Start : 03-27-2018 SCREW SET CAPLOX II FDA Start : 03-27-2018 SCREW SET CAPLOX II FDA Start : 03-27-2018 SCREW SET CAPLOX II FDA Start : 03-27-2018 CROSSLINK CAPLOX II MEDIUM FDA Start: 03-27-2018 OSTEOAMP GRANULE S 5CC FDA Start: 03-27-2018 VICTOR HUGO 40MM CVD CAP LOX II FDA Start: 03-27-2018 VICTOR HUGO 40MM CVD CAP LOX II FDA Start: 03-27-2018 SCREW 6.5 X 55MM CAPLOX II FDA Start: 03-27-2018 SCREW 6.5 X 55MM CAPLOX II FDA Start: 03-27-2018 SCREW 6.5 X 55MM CAPLOX II FDA Start: 03-27-2018 SCREW 6.5 X 55MM CAPLOX II FDA Start: 03-27-2018 ALLOGRAFT 12MM T LIF LORDOTIC FDA Start: 03-27-2018 SCREW SET CAPLOX II FDA Start : 03-27-2018 SCREW SET CAPLOX II FDA Start : 03-27-2018 SCREW SET CAPLOX II FDA Start : 03-27-2018 SCREW SET CAPLOX II FDA Start : 03-27-2018 CROSSLINK CAPLOX II MEDIUM FDA Start: 03-27-2018 OSTEOAMP GRANULE S 5CC FDA Start: 03-27-2018 VICTOR HUGO 40MM CVD CAP LOX II FDA Start: 03-27-2018 VICTOR HUGO 40MM CVD CAP LOX II FDA Start: 03-27-2018 SCREW 6.5 X 55MM CAPLOX II FDA Start: 03-27-2018 SCREW 6.5 X 55MM CAPLOX II FDA Start: 03-27-2018 SCREW 6.5 X 55MM CAPLOX II FDA Start: 03-27-2018 SCREW 6.5 X 55MM CAPLOX II FDA Start: 03-27-2018 ALLOGRAFT 12MM T LIF LORDOTIC FDA Start: 03-27-2018 SCREW SET CAPLOX II FDA Start : 03-27-2018 SCREW SET CAPLOX II FDA Start : 03-27-2018 SCREW SET CAPLOX II FDA Start : 03-27-2018 SCREW SET CAPLOX II FDA Start : 03-27-2018 CROSSLINK CAPLOX II MEDIUM FDA Start: 03-27-2018 OSTEOAMP GRANULE S 5CC FDA Start: 03-27-2018 VICTOR HUGO 40MM CVD CAP LOX II FDA Start: 03-27-2018 VICTOR HUGO 40MM CVD CAP LOX II FDA Start: 03-27-2018 SCREW 6.5 X 55MM CAPLOX II FDA Start: 03-27-2018 SCREW 6.5 X 55MM CAPLOX II FDA Start: 03-27-2018 SCREW 6.5 X 55MM CAPLOX II FDA Start: 03-27-2018 SCREW 6.5 X 55MM CAPLOX II FDA Start: 03-27-2018 ALLOGRAFT 12MM T LIF LORDOTIC FDA Start: 03-27-2018 SCREW SET CAPLOX II FDA Start : 03-27-2018 SCREW SET CAPLOX II FDA Start : 03-27-2018 SCREW SET CAPLOX II FDA Start : 03-27-2018 SCREW SET CAPLOX II FDA Start : 03-27-2018 CROSSLINK CAPLOX II MEDIUM FDA Start: 03-27-2018 OSTEOAMP GRANULE S 5CC FDA Start: 03-27-2018 VICTOR HUGO 40MM CVD CAP LOX II FDA Start: 03-27-2018 VICTOR HUGO 40MM CVD CAP LOX II FDA Start: 03-27-2018 SCREW 6.5 X 55MM CAPLOX II FDA Start: 03-27-2018 SCREW 6.5 X 55MM CAPLOX II FDA Start: 03-27-2018 SCREW 6.5 X 55MM CAPLOX II FDA Start: 03-27-2018 SCREW 6.5 X 55MM CAPLOX II FDA Start: 03-27-2018 ALLOGRAFT 12MM T LIF LORDOTIC FDA Start: 03-27-2018 SCREW SET CAPLOX II FDA Start : 03-27-2018 SCREW SET CAPLOX II FDA Start : 03-27-2018 SCREW SET CAPLOX II FDA Start : 03-27-2018 SCREW SET CAPLOX II FDA Start : 03-27-2018 CROSSLINK CAPLOX II MEDIUM FDA Start: 03-27-2018 OSTEOAMP GRANULE S 5CC FDA Start: 03-27-2018 VICTOR HUGO 40MM CVD CAP LOX II FDA Start: 03-27-2018 VICTOR HUGO 40MM CVD CAP LOX II FDA Start: 03-27-2018 SCREW 6.5 X 55MM CAPLOX II FDA Start: 03-27-2018 SCREW 6.5 X 55MM CAPLOX II FDA Start: 03-27-2018 SCREW 6.5 X 55MM CAPLOX II FDA Start: 03-27-2018 SCREW 6.5 X 55MM CAPLOX II FDA Start: 03-27-2018 Functional Status Date Assessment Result Facility 07-26-2022 Functional Status N/A [facility] Clinical Notes 04-09-2021 to 05-31-2023 Note Date & Type Note Facility 05-31-2023 Evaluation note Encounter Date Diagnosis Assessment Notes May, History of prostate cancer (ICD-10 - Z85.46) Risks and benefits of PSA screening discussed with patient today. Patient wishes to get PSA screening done. PSA screening lab ordered today. May, Primary hypertension (ICD-10 - I10) To goal. Prior to your visit today we reviewed your chart and outlined the tetsing and treatment needed for your care. We discussed the possible complications of high blood pressure, including increased risk for heart disease, stroke, and kidney disease. Our goal is to keep your blood pressure below 130/85 (an preferably < 120/80) and maintain a healthy weight with a BMI less than 26. We are working together to acheive these goals with the following plan; healthier diet, increased activity and exercise, understanding your medicaitons, and your complaince. You have been given relevant education handouts. May, Screening for prostate cancer (ICD-10 - Z12.5) May, Gastroesophageal reflux disease without esophagitis (ICD-10 - K21.9) Reflux symptoms remain unchanged. Discussed the importance of meal content. They should avoid overeating and eating meals late in the evening. Take medication as directed and we will continue to monitor. May, Seasonal allergies (ICD-10 - J30.2) Reports that symptoms are well controlled on the Fenofexadine. [facility] Other 02-13-2023 Hospital Discharge instructions Patient Education 07/26/2022 13:56:39 Cancer Screening for Men Cancer Screening for Men A cancer screening is a test or exam that checks for cancer. Your health care provider will recommend specific cancer screenings based on your age, personal history, and family history of cancer. Work with your health care provider to create a cancer screening schedule that protects your health. Why is cancer screening done? Cancer screening is done to look for cancer in the very early stages, before it spreads and becomesharder to treat and before you would start to notice symptoms. Finding cancer early improves the chances of successful treatment. It may save your life. Who should be screened for cancer? All men should be screened for colorectal cancer and skin cancer. Your health care provider may recommend screenings for other types of cancer if: You had cancer before. You have a family member with cancer. You have abnormal genes that could increase the risk of cancer. You have risk factors for certain cancers, such as smoking. When you should be screened for cancer depends on: Your age. Your medical history and your family's medical history. Certain lifestyle factors, such as smoking. Environmental exposure, such as to asbestos. What are some common cancer screenings? Lung cancer Lung cancer screening is done with a CT scan that looks for abnormal cells in the lungs. Discuss lung cancer screening with your health care provider if you are 55 74 years old and if any of the following apply to you: You currently smoke. You used to smoke heavily. You have a smoking history of 1 pack a day for 30 years or 2 packs a day for 15 years. You have quit smoking within the past 15 years. If you smoke heavily or if you used to smoke, you may need to be screened every year. Prostate cancer Prostate cancer screening is done with blood tests and an exam in which a health care provider usesa gloved finger to check prostate size (digital rectal exam). You may need to be screened for prostate cancer if: You have risk factors of prostate cancer, such as being or having a close family member with prostate cancer. You have inherited gene changes or a genetic condition, including BRCA1 or BRCA2 gene mutations or [place] syndrome. You have symptoms of prostate cancer, such as problems urinating or erectile dysfunction. Prostate cancer screening for men with average risk may start at age 50. Men with risk factors may need to be screened earlier at age 40 45. Once you have been screened for prostate cancer, future screening may be recommended based on the results of your blood tests. Colorectal cancer All adults should have screening for colorectal cancer starting at age 50 and continuing until age 75. Your health care provider may recommend screening at age 45. You will have tests every 1 10 years, depending on your results and the type of screening test. If you have a family history of colon or rectal cancer or other risk factors, you may need to start having screenings earlier. Talk with your health care provider about which screening test is right for you and how often you should be screened. Colorectal cancer screening looks for cancer or for growths called polyps that often form before cancer starts. Tests to look for cancer or polyps include: Colonoscopy or flexible sigmoidoscopy. For these procedures, a flexible tube with a small camera isinserted into the rectum. CT colonography. This test uses X-rays and a contrast dye to check the colon for polyps. If a polypis found, you may need to have a colonoscopy so the polyp can be located and removed. Tests to look for cancer in the stool (feces) include: Guaiac-based fecal occult blood test (FOBT). This test detects blood in stool. It can be done at home with a kit. Fecal immunochemical test (FIT). This test detects blood in stool. For this test, you will need to collect stool samples at home. Stool DNA test. This test looks for blood in stool and any changes in DNA that can lead to colon cancer. For this test, you will need to collect a stool sample at home and send it to a lab. Skin cancer Skin cancer screening is done by checking the skin for unusual moles or spots and any changes in existing moles. Your health care provider should check your skin for signs of skin cancer at every physical exam. You should check your skin every month and tell your health care provider right away if anything looks unusual. Men with a ulzbul-nmcm-waqgal risk for skin cancer may want to see a transfer specialist (broommaking supervisor) for an annual body check. Where to find more information [employer] [place]: https://www.cancer.gov/about-cancer/screening Centers for Disease Control and Prevention: https://www.cdc.gov/cancer/dcpc/prevention/screening.htm [place] [employer]: https://www.cancer.org/latest-news/5-irxvvo-lljzhbscr-ettya-zkg-hhe.html Contact a health care provider if: You have concerns about any signs or symptoms of cancer, such as: ?Moles that have an unusual shape or color. ?Changes in existing moles. ?A sore on your skin that does not heal. ?Blood in your urine or stool. ?Fatigue that does not go away. ?Frequent pain or cramping in your abdomen. ?Coughing or trouble breathing that does not go away. ?Coughing up blood. ?Losing weight without trying. ?Changes in urination habits. ?Painful urination or ejaculation. Summary Be aware of and watch for signs and symptoms of cancer, especially symptoms of lung cancer, prostate cancer, colorectal cancer, and skin cancer. Early detection of cancer with cancer screening may save your life. Talk with your health care provider about your specific cancer risks. Work together with your health care provider to create a cancer screening plan that is right for you. This information is not intended to replace advice given to you by your health care provider. Make sure you discuss any questions you have with your health care provider. Document Released: 02/24/2017 Document Revised: 02/16/2019 Document Reviewed: 02/24/2017 [employer] Patient Education 2020 [employer]. Follow Up Care 05/29/2021 09:36:17 With:ARIANNA HUTTON, Abdiel Wilkerson, URL Address: [facility] [address], [place] [address]- When: Unknown [facility] 10-25-2022 Evaluation note* Encounter Date Diagnosis Assessment Notes Treatment Notes Treatment Clinical Notes Mar, History of lumbar fusion (ICD-10 - Z98.1) At 4 years postop I independently reviewed the plain x-ray of the lumbar spine and compared to previous. The patient has a solid fusion with stable hardware no adjacent level disease. I have reinforced that if new radiculopathy begins to develop please come back and see me all understand and agree I will see him again in a year with another xray. Mar, Spondylolisthesis , lumbar region (ICD-10 - M43.16) [facility] Other 10-28-2021 Evaluation note* Encounter Date Diagnosis Assessment Notes Treatment Notes Treatment Clinical Notes Mar, Spondylolisthesis of lumbar region (ICD-10 - M43.16) I have independently reviewed the plain x-ray of the lumbar spine and the report and reviewed previous x-rays of the lumbar spine over the last 3 years. This gentleman has had good stability at the level above his surgery, he continues to have no true radicular pain. He is much better than he was preoperatively and happy with his overall progress. His left foot is just slightly weak he understands that he can live with that problem. I will see him again in a year for reevaluation. Mar, Foot drop, left (ICD-10 - M21.372) Mar, Lumbar radiculopathy (ICD-10 - M54.16) [facility] Other evaluation + Plan note No data available for this section [facility] evaluation noteNo assessment information available [facility] Work Phone: Evaluation noteNo InformationNort [employer] Other Evaluation note* Diagnosis Onset Date Resolution Status Gastroesophageal reflux disease without esophagitis acute History of prostate cancer a cute Hypertriglyceridemia acute Medicare annual wellness visit, subsequent acute Primary hypertension acute [facility] Work Phone: Evaluation note* Diagnosis Onset Date Resolution Status S/P lumbar fusion acute [facility] Work Phone: History general Narrative - Reported* Type Description Date Medical History Prostate cancer Medical History Cannot take pain med ication- such as NSAIDS due to past radiation Surgical History Appendectomy Surgical History Prostate Hospitalization History SEE ABOVE [facility] Other History general Narrative - Reported* Type Description Date Medical History Prostate cancer Medical History Cannot take pain med ication- such as NSAIDS due to past radiation Medical History HTN Surgical History Appendectomy Surgical History Prostate Surgical History Back surgery Surgical History Oral Surgery Surgical History Gallbladder Surgical History Cyst on neck Surgical History Cataracts Hospitalization History SEE ABOVE [facility] Other Progress note No data available for this section [facility] Chief Complaint and Reason for Visit Chief Complaint M54.16 Chief Complaint M43.16 Chief Complaint 6 month follow up Reason for Visit Gastroesophageal ref lux disease without esophagitis History of prostate cancer Hypertriglyceridemia Medicare annual wellness visit, subsequent Primary hypertension Chief Complaint m48.06 yrly f/u PLIF w/x-ray Chief Complaint m48.06 yrly f/u PLIF w/x-ray Reason for Visit S/P lumbar fusion Advance Directives No Advanced Directives Records Found Advance Directive Response Recorded Date/ Time Advance Directives No October 10, 2 018 5:03pm Summary Purpose Family History No Family History Records Found Relationship Condition Age at Onset Recorded Date/T cedrick father Unknown Not Specified Unknown Malignant neoplasm Unknown Relationship Condition Age at Onset Recorded Date/T cedrick father Unknown mother Unknown Malignant neoplasm Unknown Additional Source Comments REASON FOR VISIT (unrecogniz ed section and content) yearly f/u PLIF 2018yearly f /u plif W XRAYestablishlab results Care Teams (unrecognized sec tion and content) Team Status: Inactive Member Role Status Dates Avery Gordon DO Primary Care Provider Active Justin George MD Attending Provider Active Team Status: Active Member Role Status Dates Avery Gordon DO Primary Care Provider Active Team Status: Active Member Role Status Dates NON STAFF Primary Care Provider Active Team Status: Inactive Member Role Status Dates Justin George MD Attending Provider Active NON STAFF Primary Care Provider Active Team Status: Active Member Role Status Dates Edwina Carty APRN EPILEPSY PHYSICIAN-C Primary Care Provider Active Team Status: Inactive Member Role Status Dates Edwina Carty APRN EPILEPSY PHYSICIAN-C Primary Care Provider, Attending Provider Active Start: November 28, 2023 End: November 28, 2023 Team Status: Active Member Role Status Dates Edwina Carty APRN EPILEPSY PHYSICIAN-C Primary Care Provider Active Start: March Oriana Zuniga APRN Attending Provider Active Start: March 27, 2024 Team Status: Inactive Member Role Status Dates Edwina Carty APRN EPILEPSY PHYSICIAN-C Primary Care Provider Active Start: March End: March 27, 2024 Oriana Zuniga APRN Attending Provider Active Start: March 27, 2024 End: March 27, 2024 Goals (unrecognized section and content) Goals may be documented in a n alternate section (unrecognized sect ion and content) No Status Records FoundNo Status Records FoundNo Status Records Found INFORMATION SOURCE (unrecogn ized section and content) DATE CREATED AUTHOR 07/27/2022 [facility] DATE CREATED AUTHOR AUTHOR'S ORGANIZ ATION 08/04/2022 [facility] [place] [facility] DATE CREATED AUTHOR AUTHOR'S ORGANIZ ATION 05/23/2024 [facility] FOR RECORDS PERTAINING TO PATIENTS WHO ARE OR HAVE BEEN ENROLLED IN A CHEMICAL DEPENDENCY/SUBSTANCEABUSE PROGRAM, SOME INFORMATION MAY BE OMITTED. This clinical summary was aggregated from multiple sources. Caution should be exercised in using it in the provision of clinical care. This summary normalizes information from multiple sources, and as a consequence, information in this document may materially change the coding, format and clinical context of patient data. In addition, data may be omitted in some cases. CLINICAL DECISIONS SHOULD BE BASED ON THE PRIMARY CLINICAL RECORDS. [facility] [employer] [facility]. provides no warranty or guarantee of the accuracy or completeness of information in this document.
[2024-06-01 12:21] LABS: Prostate Specific Antigen Scrn <0.13 ng/mL (<=4.00)
== END 2024-06-01 10:25 | disposition home or self-care (01) ==
LOC: LAB 10:26
PROVIDERS: PCP Nurse Practitioner Family; Visit Provider Nurse Practitioner Family
DX: Z12.5 Encounter for screening for malignant neoplasm of prostate (principal); Z85.46 Personal history of malignant neoplasm of prostate
CPT/HCPCS: 36415; G0103

== ENCOUNTER 2025-06-11 08:24 | Outpatient (OUT) | payer MEDICARE, SELFPAY ==
--- OUTSIDE RECORDS SUMMARY | 2025-05-29 05:01 | XMS_ITS | Continuity of Care Document ---
Author Organization [facility] Address [address] [place] [address] Phone Care Team Providers Care Etymology Professor Name Role Phone Edwina Carty APRN Primary Care Provider Oriana Zuniga APRN Attending Provider Edwina Carty APRN Attending Provider Care Teams Patient Care Team Team Status: Active Member Role/Relationship Status Dates Edwina Carty APRN HEAD OF ACQUISITIONS-C Primary Care Provider Active Visit Care Team Team Status: Inactive Member Role/Relationship Status Dates Edwina Carty APRN HEAD OF ACQUISITIONS-C Primary Care Provider Active Start: March End: March 26, 2025Anant Garcia ProviderActiveStart: March 26, 2025 End: March 26, 2025 Visit Care Team Team Status: Inactive Member Role/Relationship Status Dates Edwina Carty APRN HEAD OF ACQUISITIONS-C Primary Care Provider Active Start: March End: March 26, 2025Anant Garcia ProviderActiveStart: March 26, 2025 End: March 26, 2025 Patient Care Team Team Status: Inactive Member Role/Relationship Status Dates Edwina Carty APRN HEAD OF ACQUISITIONS-C Primary Care Provider Active Start: May 292024 End: May 29, 2025Edwina Carty APRN HEAD OF ACQUISITIONS-CAttending ProviderActive Start: May 29, 2025 End: May 29, 2025 Chief Complaint and Reason for Visit Chief Complaint Admit Date M48.06 March 26, 2025 8 :01am yearly follow PLIF w/xray March 26, 2025 8:47am med refill May 29, 2025 9:23am Reason for Visit Admit Date S/P lumbar fusion March 26, 2025 8 :47am Allergies, Adverse Reactions, Alerts Allergen Type Severity Reaction Last Updated Verified Status bacitracin Allergy Unknown Unknown Reaction May 29, 2025 9:24am Yes Active chocolate flavor Allergy Unknown Swelling of Lip/Tongue/Throat May 29, 2025 9:24am Yes Active milk Allergy Unknown Unknown Reaction May 29, 2025 9:24am Yes Active neomycin Allergy Unknown Unknown Reaction May 29, 2025 9:24am Yes Active polymyxin B Allergy Unknown Unknown Reaction Decembe r 2024 9:24am Yes Active butter Allergy Unknown Swelling of Lip/Tongue/Throat March 20, 2018 9:46am No Active [employer] pizza Allergy Unknown Swelling of Lip/Tongue/Throat March 20, 2018 9:46am No Active Social History Smoking Status Status Start Date End Date Date of Observa tion Never smoked tobacco (finding) November 28, 2023 9:37am Observation Status Observation Response Date of Response Legal Sex [facility] (finding) [facility] 1945 Family History Relationship Condition Age at Onset Recorded Date/T cedrick father Unknown motherDeceasedUnknownMalignant neoplasmUnknown Problems Active Problems Problem Diagnosis/Recorded Date Onset Date Stat Medicare annual wellness vis it, subsequent November 28, 2023 8:37am Unknown Active History of prostate cancer September 21, 2023 8:22am Unk nown Active Screening for prostate cancer June 01, 2024 9:18 am Unknown Active Trigger finger of left hand November 28, 2023 10:03am Un known Active Hypertriglyceridemia November 28, 2023 9:36am Unknown Active Seasonal allergies September 21, 2023 8:22am Unknown Active Impaired fasting glucose June 01, 2024 10:45am U nknown Active Primary hypertension September 21, 2023 8:22am Unknown Active Gastroesophageal reflux dise ase without esophagitis September 21, 2023 8:22am Unknown Active S/P lumbar fusion March 27, 2024 9:58am Unknown Active Spinal stenosis, lumbar cathi on, with neurogenic claudication March 28, 2018 7:01am Unknown Active Medications Medication Status Dose Units Route Directions Qty Days Refills S tart Date Stop Date End Date Reason(s) Instructions Adherence Potassium Chloride 10 mEq tablet extended release Discontinued 10 MEQ PO Twice daily 180 90 0 September 21, 2023 8:33am November 28, 2023 9:22amPrimary hypertension Essential (primary) hypertensionCholestyramine (With Sugar) 4 gram powder Nwcemvdaamrx9FEHVWjqwl5831Hwal 2023 11:00pmJune 2023 8:27ammix in 8 oz of fluidCholestyramine (With Sugar) 4 gram bccnrnUuqjnwbkxqqv8VAXTUufcu6826 December 05, 2023 8:27amJune 2023 12:25pmmix in 8 oz of fluidFexofenadine 180 mg dcdxnxEnqkbupcdypg171LUZXVhpcr97581Awcl 2023 8:27amDecemb2023 8:54amSeasonal allergies Other seasonal allergic rhinitisCholestyramine (With Sugar) 4 gram powder Smzpgvppjqrt0CJDLMyfdh6311Swvu 2023 12:24pmDeceer 2023 8:55ammix in 8 oz of fluidHydrochlorothiazide 12.5 mg QepoyxBxyqlyyeivnd0UWQMSJjgviBquc 2017 11:00pmApril 2023 8:21amhtnCalcium Carbonate-Vitamin D3 (Caltrate 600 Plus D) 600 mg (1,500 mg)-800 unit Tablet,KzjlpsgfKmgbpj4GIQQE DailyJune 2017 11:00pmComplies with drug therapyOmeprazole 20 mg Capsule,Delayed Release(Dr/Ec)Rtxfverazuqc98ZOKKFymmv as needed for Heartburn March 19, 2018 11:00pmApril 2023 8:21amMagnesium Hydroxide (Milk Of Magnesia) 400 mg/5 mL XimhqgwpoeSroiufbrhluw64 - 30MLPODaily as needed for ConstipationMarch 19, 2018 11:00pmOctober 2017 10:09amCyclobenzaprine 10 mg caevzeCprisrtxqyuj68GAORNusdd times daily as needed for back March 28, 2018 11:00pmApril 2023 8:21amPrednisone 10 mg tablets,dose pkzkHjxnqkyamxgx9muss pkPOper package nexnmwxxjv227Fptbfsi 2017 11:00pm September 21, 2023 8:21amtake 4 tabs for 3 days then take 3 tabs for 3 days then take 2 tabs for 3 days then take 1 tab for 3 daysCephalexin (Keflex) 500 mg znhtvfpJgjdstkvkint161KKBO N5F273Kjonaft 2017 11:00pmOctgood [facility] 2017 10:10amOxycodone (Roxicodone) 5 mg TabletDiscontinued1 - 1NMMRIR8A as needed for Nrxh301Fwmthuq 2017September 21, 2023 8:21amSpinal stenosis of lumbar region with neurogenic claudication Spinal stenosis, lumbar regionDocusate Sodium (Colace) 100 mg Capsule Vlozjvvcywru942CILXCnscyFzclnfo 2017 11:00pmApril 2023 8:21am Cephalexin (Keflex) 500 mg csjnbefVblqivivqvvg599DXVTNepqeTgozrrb 2017 10:10amApril 2023 8:20amPrednisone 10 mg wmuknmOzbzclrpwmxe16NYHAHcxob392 April 08, 2018 11:00pmApril 2023 8:77qq08lm daily x 3 days, 40 mg daily x 3 days, 20mg daily x 3 days, 10mg daily x 3 daysOxycodone-Acetaminophen (Percocet) 5-325 mg qngnpmOpungwxmdohj5BSPZFQTGVI 4-6 HOURS as needed for pain20 50Octgood [facility] 2017April 2023 8:21amSpinal stenosis of lumbar region with neurogenic claudication Spinal stenosis, lumbar sxgftvAipghagvjulr-Ihvxzxud-Zjsxfx oapzhtNmuwjm5WUYBA DailyApril 2023 11:00pmComplies with drug therapyPotassium Chloride 10 mEq tablet extended gkudsfyJnlwnqxazeye35PIYHVRvwir dailyApril 2023 11:00pm September 21, 2023 8:34amCholestyramine-Aspartame (Cholestyramine Light) 4 gram powder in nqenpkXvnvpwyosmgf1NKOQZMForefBuesi 2023 11:00pmJun2023 8:41amFexofenadine 180 mg qpaliwHukxmzlgvqzt626NINFIvtkgLoxdr 9th, 2024 11:00pm December 05, 2023 8:27amHydrochlorothiazide 25 mg dhcpooIzzpsqxaaryu51SWDCPtlwb September 20, 2023 11:00pmJun2023 9:22amMagnesium Hydroxide 400 mg/5 mL yepqwsvhrzIpzpefcfdojz6MUPOZowg times daily as neededApr2023 11:00pmJun2023 8:41amPantoprazole 40 mg tablet,delayed release (DR/EC)Nkkfoqylnnql06 MGPODailyApril 2023 11:00pmNovember 28, 2023 9:22amHydrochlorothiazide 25 mg xdsuiqZsgimpigdzkb89XBRWYpwtp25365Ywvk 17th, 2024 9:21amJune 01, 2024 8:54amPrimary hypertension Essential (primary) hypertensionPantoprazole 40 mg tablet,delayed release (DR/EC)Cuqjgmolkbtg21UVUVEflch67076Jqlr 17th, 2024 9:212023 8:54amGastroesophageal reflux disease without esophagitis Gastro-esophageal reflux disease without esophagitisPotassium Chloride 10 mEq tablet extended uprlwoeJltzvsmnfisg73VNOLOGrraw hzrwv422254Frab2023 9:21amDe2023 8:54amPrimary hypertension Essential (primary) hypertensionHydrochlorothiazide 25 mg yasyywLzsrrn32SCIE Qxbvs23021QevsbjtgMay 29, 2025 9:43amPrimary hypertension Essential (primary) hypertensionComplies with drug therapyPantoprazole 40 mg tablet,delayed release (DR/EC)Vvumbj80SUABUfuij24174Iinmwsru 17th, 2025 9:43am Gastroesophageal reflux disease without esophagitis Gastro-esophageal reflux disease without esophagitisComplies with drug therapy Potassium Chloride 10 mEq tablet extended zjkavqyXmfrwa53OISAAEgsaw bqlwp879348 May 29, 2025 9:43amPrimary hypertension Essential (primary) hypertensionComplies with drug therapyFexofenadine 180 mg nivbcwDxuzpv288PWIABzyrw65790Vqudxqdf 17th, 2025 9:44amSeasonal allergies Other seasonal allergic rhinitisComplies with drug therapyFexofenadine 180 mg nyaimgBxnixrlufxyd750TRLGIxaqc90673Vawamlsn 20th, 2024 8:53amDecember 2024 9:45amSeasonal allergies Other seasonal allergic rhinitisHydrochlorothiazide 25 mg qpyaviHbhdmleoyvsv53GH GMVgflt79089Apnwcqqb 20th, 2024 8:53amDece2024 9:44amPrimary hypertension Essential (primary) hypertensionPantoprazole 40 mg tablet,delayed release (DR/EC)Xzsakqbkcdsi45RNLXSigjr56342Lvkzbheu 20th, 2024 8:53amMay 29, 2025 9:44amGastroesophageal reflux disease without esophagitis Gastro-esophageal reflux disease without esophagitisPotassium Chloride 10 mEq tablet extended qmljojcVbodczuetmmm73HMYZHIutby xynwh966059Rflrunrf2023 8:53amDe2024 9:44amPrimary hypertension Essential (primary) hypertensionCholestyramine (With Sugar) 4 gram powderActive9 PGQAPeouf1631Ajhamviz 20th, 2024 8:55amHypertriglyceridemia Pure hyperglyceridemiamix in 8 oz of fluidComplies with drug therapy Medical Equipment Device Date Implanted Device Details ALLOGRAFT 12MM TLIF LORDOTIC March 27, 2018 CROSSLINK CAPLOX II MEDIUMOctober 2017OSTEOAMP GRANULES 5CCOctober 2017ROD 40MM CVD CAPLOX IIOctober 2017ROD 40MM CVD CAPLOX IIOctober 2017SCREW 6.5 X 55MM CAPLOX IIOctober 2017SCREW 6.5 X 55MM CAPLOX II March 27, 2018SCREW 6.5 X 55MM CAPLOX IIOctober 2017SCREW 6.5 X 55MM CAPLOX IIOctober 2017SCREW SET CAPLOX IIOctober 2017SCREW SET CAPLOX IIOctober 2017SCREW SET CAPLOX IIOctober 2017SCREW SET CAPLOX II March 27, 2018 Procedures Procedure Date Performed Status XR lumbar spine AP/LAT/FLX/EXT March 26 7:04am completed Relevant Diagnostic Tests and/or Laboratory Data Diagnostic Imaging Reports Author Dinah Corrales [facility] HospitalAuthoredOctgood [facility] 2024 9:14amReportDictated Date/TimeDictated ByStatusRadiology ReportOctober 2024 9:14amRadha McginnisWayne [facility] [place] [address] [place] [address] XRay Report Signed Patient: Ba Alvarado MR#: [id number] : 1945 Acct:[id number] Age/Sex: 79 / M ADM Date: Loc: XD Room: Type: [facility] Attending Dr: Oriana Zuniga APRN Copies to: Oriana Zuniga APRN~ Ordering Provider: Oriana Zuniga APRN Date of Service: 03/26/25 XR/XR lumbar spine AP/LAT/FLX/EXT: M48.06 - Spinal stenosis, lumbar region LUMBAR SPINE WITH FLEXION-EXTENSION VIEWS - 4 views COMPARISON: 03/27/2024 CLINICAL DATA: Follow-up lumbar fusion Standing AP as well as lateral views in neutral, flexion and extension were obtained. There is osteopenia. There is prior laminectomy and fusion with posterior rods, pedicle screws and interbody fusion device at L4-5. The hardware appears intact and unchanged prior. No acute compression fractures are seen. There is still slight anterolisthesis of L4 and L5. Alignment does not change significantly with flexion or extension. The unfused disc spaces are maintained. There are tiny endplate spurs. There is mid and lower lumbar facet hypertrophy. The SI joints are intact and show minor sclerosis. There are hemostasis clips at the right upper quadrant and pelvis on both sides. XR/XR lumbar spine AP/LAT/FLX/EXT IMPRESSION: POSTOPERATIVE AND DEGENERATIVE CHANGES, SIMILAR TO THE PRIOR. NO ACUTE FINDINGS. Impression dictated by: Dinah Corrales M.D. 03/26/2025 9:17 AM Dictation Location: [place] [address] Transcribed By: [facility] 03/26/25 0917 Dictated By: Dinah Corrales MD 03/26/2514 Signed By: <Electronically signed by MD Dinah Corrales in OV> 03/26/25916 Vital Signs Vital Reading Result Reference Range Collection Date/Time Height 66 [in_i] March 26, 2025 7:97neSdhdsa42.60 kgOctober 2024 7:49amBMI (Body Mass Index)32.5 kg/k6Mqrcfzg 2024 7:06ooWaruoz86 [in_i]May 29, 2025 9:83rnOhxzwk16.26 kgDeceer 2024 9:26amBody Fkqydedshnj28.2 [degF] 97.6-99.0[facility] 2024 9:26amHeart Rate72 /itj56-333Scaqmycn 17th, 2025 9:26amOxygen saturation by Pulse jrykvxch78 %95-1002024 9:26amBP Nzowkkca281 mm[Hg]100-140[facility]2024 9:26amBP Mmzmlhawr43 mm[Hg]60-100 May 29, 2025 9:26amBMI (Body Mass Index)32.1 kg/m5Hgtnjjao 2024 9:26am Advance Directives Advance Directive Response Recorded Date/ Time Advance Directives No October 10 018 4:03pm Insurance Providers Guarantor Ba Alvarado Address [address] [place] [id number] Info.Home Phone: Payer Group Member ID Coverage Type Subscriber Relationship to Subscriber Effective Date Expiration Date Medicare [id number] E Colvin Id: [id number] [address] [place] [phone] Home Phone: Email: DECLINED 2018SelfUnited Healthcare Id: Syeda [id number] E Colvin Id: [id number] [address] [place] [phone] Home Phone: Email: DECLINED 2018Self Encounters Encounter Location(s) Arrival/Admit Date Discharge/Departure Date Discharge/Departure Disposition Provider(s) Departed Clinical -[facility] March 26, 2025 8:01am March 26, 2025 8:02am Discharged to home care or self care (routine discharge) Oriana Zuniga APRN Departed Physician/ Provider Office Visit -[facility] March 26, 2025 8:47am March 26, 2025 9:06am Discharged to home care or self care (routine discharge) Oriana Zuniga APRN Departed Physician/ Provider Office Visit -[facility] May 29, 2025 9:23am May 29, 2025 9:58am Discharged to home care or self care (routine discharge) Edwina Carty APRN [employer] Recent Diagnosis Onset Date Admit Date S/P lumbar fusion Unknown March 26, 2025 8:47am Assessments Diagnosis Onset Date Resolution Status Admit Date S/P lumbar fusion acuteOctober 2024 8:47am Plan of Treatment Author Oriana [facility]iga [facility] HospitalAuthoredOctober 2024 8:08amBa presents today for an annual follow-up and imaging review. He is s/p L4-[address] George. He continues to do very well, reports no symptoms associated with the back such as aches/pains or radicular symptoms. 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 Assessment is completely unremarkable. I did review the follow-up x-rays which also appear stable. Hardware properly positioned, no acute bony abnormality. I told the patient that I have no concerns regarding his hardware or symptoms. We can continue with annual follow- ups with repeat x-rays which will be ordered. Future Tests Future scheduled test information is unavailable Pending Tests Test Name Ordered Date Scheduled Date XR lumbar spine 6V w bending March 26, 2025 8:35am Future Visits Future appointment information is unavailable Future Procedures Future procedure information is unavailable Future Medications Future medication information is unavailable Patient Instructions Patient instructions are unavailable
--- OUTSIDE RECORDS SUMMARY | 2025-06-11 08:29 | XMS_ITS | Clinical Summary ---
Author Organization [facility] Address [address] [place] [address] Care Team Providers Care Asphalt Tamper Name Role Phone Unavailable Primary Care Provider Unavailabl e Social History Tobacco UseTypesPacks/DayYears UsedDateSmoking Tobacco: Never AssessedSex and Gender InformationValueDate RecordedSex Assigned at BirthNot on fileLegal Sex Male08/25/2022 7:02 PM EDTGender IdentityNot on fileSexual OrientationNot on file Last Filed Vital Signs Vital SignReadingTime TakenCommentsBlood Raspzlcs946/8603/27/2019 12:00 PM EDT Pulse--Temperature--Respiratory Rate--Oxygen Saturation--Inhaled Oxygen Concentration--Tmgifw861 kg (221 lb)03/27/2019 12:00 PM HHSXdijmo884.6 cm (5' 6 )03/27/2019 12:00 PM EDTBody Mass Index35.6703/27/2019 12:00 PM EDT Plan of Treatment Not on file Insurance
--- OUTSIDE RECORDS SUMMARY | 2025-06-11 08:32 | XMS_ITS | CCD ---
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 Name Role Phone Justin George Unavailable DO Avery Gordon Primary Care Provider [phone] MD Justin George Attending Provider Avery Gordon Primary Care Physician [phone] MD Abdiel ROSAS Attending Unavailable HOUSE, DR [...] II, MARIELENA Consulting CHARISMA Ivey Consulting Unavailable CHUYITA ., DR BLAS Leon Consulting Unavaila minoo HOUSE, DR GRULLON Primary Care Unavailable CHUYITA ., DR BLAS Leon Attending Unavaila ble CHUYITA ., DR BLAS Leon Admitting Unavaila ble AVRIL GEE Consulting Unavailable NOHEMY KOCH Consulting Unavailable MD Justin George Attending Provider NON STAFF Primary Care Provider UnavailEdwina Villa Unavailable DAVID Carty Primary Care Provider DAVID Zuniga Attending Provider Edwina Carty APRN Primary Care Provider Oriana Zuniga APRN Attending Provider Oriana Zuniga Admitting Unavailable Oriana Zuniga Attending Unavailable Edwina Carty Primary Care Unavailable Edwina Carty Primary Care Unavailable Edwina Carty Attending Unavailable Edwina Carty Admitting Unavailable Allergies Allergy ClassificationReported Allergen(s)Allergy TypeDate of OnsetReaction(s) Facility (1 source)bacitracin / neomycin / polymyxin bDrug AllergyUnkEle[facility] [employer] Other (6 sources)Chocolate; Translations: [Chocolate]Propensity to adverse reactions Unknown (qualifier value)[facility] (9 sources)MilkPropensity to adverse xyzlhwzao75-55-8689Qdxbwmg, Unknown ReactionJoint [facility] (3 sources)triple antibioticDrug allergyUnkEleanor Slater Hospital [employer] Other (7 sources)ChocolateAllergy to ogankvlzy44-61-0943Icpotczt of Lip/Tongue/Throat [facility] (7 sources)butterAllergy to umvriwrhu17-04-7803Sibqgjpi of Lip/Tongue/Throat [facility] (7 sources)pizza hut pizzaAllergy to wqcmtivdj60-50-0526Wwfsreis of Lip/Tongue/ThroatJoint [facility] (2 sources)Milk Products; Translations: [Milk Products]Drug allergyUnknown (qualifier value)[facility] (5 sources)BacitracinDrug Ywzgzap92-61-7534Nyoxmty ReactionJoint Township District [facility] Hospital (5 sources)NeomycinDrug Hbgwotr65-45-6061Weysrxq ReactionJoint Township District Memorial Hospital (5 sources)polymyxin BAllergy to nngubctzj08-18-4844Qzeeklr ReactionJoint Township District [facility] Hospital Medications Current Medications MedicationDrug Class(es)DatesSig (Normalized)Sig (Original)calcium carbonate 1500 mg / cholecalciferol 800 unt chewable tablet (7 sources)Vitamin DStart: 46-14-6619rsoi 1 tablet by mouth once dailyCalcium Carbonate-Vitamin D3 (Caltrate 600 Plus D) 600 mg (1,500 mg)-800 unit Tablet,Chewable Active 1 TAB PO Daily November 28, 2017 12:00am Complies with drug therapyCentrum Silver (2 sources)Centrum Silver ActiveMilk of Magnesia 400 MG/5ML (1 source)take 5 mL by mouth four times daily as neededMilk of Magnesia 400 MG/5ML 5 ml as needed Orally Four times a day XrbhwkVxjbigumnova-Zwactaio-Izhgov (3 sources)Start: 26-47-7570wdkd 1 tablet by mouth once daily Ojgsihfbzrch-Rcjmibyr-Ansikx Active 1 TAB PO Daily September 21, 2023 12:00am Znwahsduvlrb-Rigsgqvq-Yrkzec tablet (2 sources)Start: 46-96-7713qscd 1 tablet by mouth once daily Zmgqovfgowbh-Ffrovndd-Dywchq tablet Active 1 TAB PO Daily September 21, 2023 12:00am Complies with drug therapy Completed/Discontinued Medications MedicationDrug Class(es)DatesSig (Normalized)Sig (Original)acetaminophen 325 mg / oxyCODONE hydrochloride 5 mg oral tablet (7 sources)Opioid AgonistStart: 04-09-2018 End: 07-85-9274ytbi 1 tablet by mouth every four to six hours as needed for pain Oxycodone-Acetaminophen (Percocet) 5-325 mg tablet Discontinued 1 TAB PO EVERY 4-6 HOURS as needed for pain 30 10April 09, 2018 September 21, 2023 9:21am cephalexin 500 mg oral capsule (14 sources)Cephalosporin AntibacterialStart: 04-09-2018 End: 29-52-9636btpw 1 capsule by mouth once dailyCephalexin (Keflex) 500 mg capsule Discontinued 500 MG PO Daily April 09, 2018 11:10am September 21, 2023 9:20amStart: 03-29-2018 End: 05-44-6122tfad 1 capsule by mouth every eight hoursCephalexin (Keflex) 500 mg capsule Discontinued 500 MG PO Q8H 15 March 29, 2018 12:00am 2017 11:10amcholestyramine resin 4000 mg powder for oral suspension (18 sources)Bile Acid SequestrantStart: 74-40-7374qcop 9 g by mouth once daily Cholestyramine (With Sugar) Active 9 GM PO Daily 378 December 05, 2023 1:24pm mix in 8 oz of fluidStart: 12-05-2023 End: 55-88-4128Rhvcsvidzlnutz (With Sugar) 4 gram powder Discontinued 9 GM PO Daily 378 December 05, 2023 1:24pm June 01, 2024 9:55am mix in 8 oz of fluid Start: 12-05-2023 End: 20-72-4455llog 4 g by mouth once dailyCholestyramine (With Sugar) Discontinued 4 GM PO Daily 378 December 05, 2023 12:00am December 05, 2023 9:27am mix in 8 oz of fluidStart: 09-21-2023 End: 53-01-7992Jvtjvfrvrjviug-Aspartame (Cholestyramine Light) 4 gram powder in packet Discontinued 1 EACH PO Daily September 21, 2023 12:00am November 28, 2023 9:41amtake 1 dose by mouth once dailyCholestyramine 4 GM 1 packet mixed with water or non-carbonated drink Orally Once a day ActiveCholestyramine-Aspartame (Cholestyramine Light) 4 gram powder in packet (3 sources)Start: 09-21-2023 End: 84-87-7648Vfqsnpkkksbwfv-Aspartame (Cholestyramine Light) 4 gram powder in packet Discontinued 1 EACH PO Daily September 21, 2023 12:00am November 28, 2023 9:41amcyclobenzaprine hydrochloride 10 mg oral tablet (7 sources)Muscle RelaxantStart: 03-29-2018 End: 01-74-2692xlst 1 tablet by mouth three times daily as needed for muscle spasmsCyclobenzaprine 10 mg tablet Discontinued 10 MG PO Three times daily as needed for back spasms 50 March 29, 2018 12:00am September 21, 2023 9:21am docusate sodium 100 mg oral capsule (7 sources)Start: 04-09-2018 End: 82-88-9865pwwv 1 capsule by mouth once dailyDocusate Sodium (Colace) 100 mg Capsule Discontinued 100 MG PO Daily April 09, 2018 12:00am September 21, 2023 9:21amfexofenadine hydrochloride 180 mg oral tablet (14 sources)Histamine-1 Receptor AntagonistStart: 09-21-2023 End: 65-69-3183fllr 1 tablet by mouth once dailyFexofenadine 180 mg tablet Discontinued 180 MG PO Daily 90 90 December 05, 2023 9:27am May 9:54amStart: 99-06-6686mkbb 1 mg by mouth once dailyfexofenadine 180 mg Tab mg tab(s), Oral, Daily, Refills(s) 0 Start Date: 05/29/21 Status: Ordered hydroCHLOROthiazide 25 mg oral tablet (20 sources)Thiazide DiureticStart: 09-21-2023 End: 76-34-8064lykq 1 tablet by mouth once dailyHydrochlorothiazide 25 mg tablet Discontinued 25 MG PO Daily 90 90 November 28, 2023 10:21am 2023 9:54amStart: 11-28-2017 End: 93-98-0343hlbx 1 tablet by mouth once dailyHydrochlorothiazide 12.5 mg Tablet Discontinued 1 TAB PO Daily November 28, 2017 12:00am September 21, 2023 9:21amtake 1 tablet by mouth every twenty-four hourshydroCHLOROthiazide 25 MG 1 tablet in the morning Orally Once a day Activemagnesium hydroxide 80 mg/ml oral suspension (15 sources)Start: 09-21-2023 End: 99-92-3026homi 1 mL by mouth four times daily as neededMagnesium Hydroxide 400 mg/5 mL suspension Discontinued 5 ML PO Four times daily as needed September 12:00am November 28, 2023 9:41amStart: 09-21-2023 End: 19-03-3683gxpe 1 mL by mouth four times dailyMagnesium Hydroxide Discontinued 5 ML PO Four times daily September 21, 2023 12:00am November 28, 2023 9 :41amStart: 03-20-2018 End: 36-66-0938acep 1 mL by mouth once daily as needed for constipationMagnesium Hydroxide (Milk Of Magnesia) 400 mg/5 mL Suspension Discontinued 15 - 30 ML PO Daily as needed for Constipation March 20, 2018 12:00am April 09, 2018 11:09amtake 5 mL by mouth four times daily as neededMilk of Magnesia 400 MG/5ML 5 ml as needed Orally Four times a day Activetake 5 mL by mouth four times daily as neededMilk of Magnesia 400 MG/5ML 5 ml as needed Orally Four times a day Activeomeprazole 20 mg delayed release oral capsule (9 sources)Proton Pump InhibitorStart: 03-20-2018 End: 80-01-0142dftt 1 capsule by mouth once daily as needed for gastroesophageal reflux diseaseOmeprazole 20 mg Capsule,Delayed Release(Dr/Ec) Discontinued 20 MG PO Daily as needed for HeartburnOct2017 12:00am September 21, 2023 9:21amoxyCODONE hydrochloride 5 mg oral tablet (7 sources)Opioid AgonistStart: 03-29-2018 End: 47-39-5718umcg 1 tablet by mouth every six hours as needed for pain Oxycodone (Roxicodone) 5 mg Tablet Discontinued 1 - 2 TAB PO Q6H as needed for Pain 60 March 29, 2018 September 21, 2023 9:21ampantoprazole 40 mg delayed release oral tablet (15 sources)Proton Pump InhibitorStart: 09-21-2023 End: 53-11-9827cziv 1 tablet by mouth once dailyPantoprazole 40 mg tablet,delayed release (DR/EC) Discontinued 40 MG PO Daily 90 90 November 28, 2023 10:21June 01, 2024 9:54amStart: 63-99-4611Xfdxdkcgeoeh [address] Tab Refills(s) 0 Start Date: 07/26/22 Status: Orderedpotassium chloride 10 meq extended release oral tablet (20 sources)Start: 09-21-2023 End: 30-04-8224lzgz 1 tablet by mouth twice dailyPotassium Chloride 10 mEq tablet extended release Discontinued 10 MEQ PO Twice daily 180 90 November 28, 2023 10:21June 01, 2024 9:54amStart: 09-21-2023 End: 92-42-5332fyfg 10 mEq by mouth twice dailyPotassium Chloride Discontinued 10 MEQ PO Twice daily September 21, 2023 12:00am September 21, 2023 9:34amStart: 98-12-4680fnlw 1 tablet by mouth twice dailypotassium chloride 20 mEq ER Tab mEq tab(s), Oral, BID, Refills(s) 0 Start Date: 05/29/21 Status: Orderedtake 1 capsule by mouth every twelve hoursPotassium Chloride ER 10 MEQ 1 capsule with food Orally Twice a day ActivepredniSONE 10 mg oral tablet (14 sources)Start: 04-09-2018 End: 80-48-8524Bynhkuivum 10 mg tablet Discontinued 10 MG PO Daily April 09, 2018 12:00am September 21, 2023 9:21am 60mg daily x 3 days, 40 mg daily x 3 days, 20mg daily x 3 days, 10mg daily x 3 daysStart: 03-29-2018 End: 36-81-7334Qoqojtndnq 10 mg tablets,dose pack Discontinued 1 dose pk PO per package directions March 29, 2018 12:00am September 21, 2023 9:21am take 4 tabs for 3 days then take 3 tabs for 3 days then take 2 tabs for 3 days then take 1 tab for 3 daysStart: 03-29-2018 End: 69-36-8377Daoiccpsue Discontinued 1 dose pk PO per package directions March 29, 2018 12:00am September 21, 2023 9:21am take 4 tabs for 3 days then take 3 tabs for 3 days then take 2 tabs for 3 days then take 1 tab for 3 days Start: 71-60-0334Ofvvijcdhz Active 1 dose pk PO per package directions March 29, 2018 12:00am take 4 tabs for3 days then take 3 tabs for 3 days then take 2 tabs for 3 days then take 1 tab for 3 days Problems Active Problems Problem ClassificationProblemDateDocumented DateEpisodic/ChronicCancer of prostate (12 sources)Personal history of malignant neoplasm of prostate; Translations: [History of malignant neoplasm ofprostate]Onset: 70-95-2872WosewoylTkizhym dysrhythmias (5 sources)Supraventricular tachycardia; Translations: [Ventricular premature depolarization]Onset: 70-67-3235UkqjnxzUomumjzy mellitus without complication (2 sources)Impaired fasting glycemia; Translations: [Impaired fasting glucose] 97-49-3973DijhwqiyIgaylqdwu of lipid metabolism (7 sources)Hyperlipidemia; Translations: [Hypertriglyceridemia]30-79-8330Qsfgvxt Esophageal disorders (11 sources)Gastroesophageal reflux disease; Translations: [Gastro-esophageal reflux disease without esophagitis]Onset: 431772-99-7852HoejpojTumgfpcxp hypertension (12 sources)Hypertensive disorder; Translations: [Essential (primary) hypertension]Onset: 855486-60-7677TahbbsuNpjdxxdpycbfd symptoms and ill- defined conditions (9 sources)Nocturia; Translations: [Nocturia]Onset: 15-61-8221RfdsqbedUbvhl acquired deformities (4 sources)Lumbar spondylolisthesis; Translations: [Spondylolisthesis, lumbar region]EpisodicOther acquired deformities (2 sources)Spondylolisthesis, lumbar region; Translations: [Spondylolisthesis of lumbar region M43.16]Onset: 04-09-2021 Resolved: 91-55-5782MwxdepncRgcna acquired deformities (2 sources)Acquired spondylolisthesis; Translations: [Spondylolisthesis, lumbar region]EpisodicOther aftercare (1 source)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; Translations: [OTH PHYSICAL EDUCATION AIDE CURRENT DRUG THERAPY]Onset: 56-34-4094MornbogmSjcpz and unspecified benign neoplasm (5 sources)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, face and neck; Translations: [SARAH LIPOMAT RADHA SKIN SUBQ HEAD NECK]Onset: 27-17-3035LytzpztsJuxiy connective tissue disease (2 sources)Arthrodesis status; Translations: [Arthrodesis status]EpisodicOther connective tissue disease (2 sources)Triggering of digit; Translations: [Trigger finger, unspecified finger]16-37-2393GebhnjuzLhhds connective tissue disease (4 sources)History of lumbar fusion; Translations: [Arthrodesis status] 43-24-8028DuaxmheyPnjgm connective tissue disease (2 sources)Trigger finger of left hand; Translations: [Trigger finger, unspecified finger]53-35-7904BzaryeszYmvtx male genital disorders (1 source)Bboabzebz43-68-0216AotusksCmwnm non-traumatic joint disorders (4 sources)Arthralgia of the pelvic region and thigh; Translations: [Pain in right hip]EpisodicOther nutritional; endocrine; and metabolic disorders (1 source)Obesity, unspecified; Translations: [OBESITY UNSPECIFIED]Onset: 05-58-3860BithsdkIqbda nutritional; endocrine; and metabolic disorders (1 source)Body mass index (BMI) 33.0-33.9, adult; Translations: [BODY MASS INDEX BMI 33.0-33.9 ADULT]Onset: 90-94-4049XprvyhoPnsml screening for suspected conditions (not mental disorders or infectious disease) (3 sources)Encounter for screening for malignant neoplasm of prostate; Translations: [Patient encounter status]EpisodicOther upper respiratory disease (6 sources)Seasonal allergy; Translations: [Other seasonal allergic rhinitis] 03-95-1592MuzeupsBeghq upper respiratory disease (1 source)Other seasonal allergic rhinitisChronicResidual codes; unclassified (1 source)Acquired absence of other specified parts of digestive tract; Translations: [ACQ ABSENCE OTH PART DIGESTV TRACT]Onset: 54-31-2573Mrorowvf Residual codes; unclassified (1 source)Acquired absence of other genital organ(s); Translations: [ACQUIRED ABSENCE OTH GENITAL ORGANS]Onset: 16-63-8179TexyxacqItqwaevybyq; intervertebral disc disorders; other back problems (4 sources)Lumbosacral spondylosis; Translations: [Spondylosis without myelopathy or radiculopathy, lumbosacral region]ChronicSpondylosis; intervertebral disc disorders; other back problems (17 sources)Low back pain; Translations: [Low back pain]Onset: 04-09-2021 Resolved: 77-90-9811CsgvgsseBvtqhqiznfkw (1 source)CONTACT W/AND (SUSP) EXPOS COVID-19; Translations: [CONTACT W/AND (SUSP) EXPOS COVID-19]Onset: 03-17-2022 Past or Other Problems Problem ClassificationProblemDateDocumented DateEpisodic/ChronicAbdominal pain (5 sources)Right upper quadrant pain; Translations: [RIGHT UPPER QUADRANT PAIN] Onset: 09-94-5429TgpglhuvHbendcpp foot deformities (1 source)Foot drop, left foot; Translations: [Foot drop, left M21.372]Onset: 04-09-2021 Resolved: 79-06-3221LbwvqchoOmfyrst tract disease (6 sources)Other specified diseases of gallbladder; Translations: [Calculus of gallbladder without cholecystitis without obstruction]Onset: 29-52-4140Jqntnrfs Cardiac dysrhythmias (4 sources)Palpitations; Translations: [PALPITATIONS]Onset: 69-57-5700Wyvvpnvk Results Test NameValueInterpretationReference RangeFacilityX-ray reportOrdered By: Dinah Corrales on 65-86-0155Erpjf reportPEOPLES HOSPITAL [facility] [address] [place] [address] XRay Report Signed Patient: Juan Luis Chandler MR#: [id number] : 1945 Acct:[id number] Age/Sex: 79 / M ADM Date: 5 Loc: XD Room: Type: [facility] Attending Dr: Oriana Zuniga APRN Copies [...] and unchanged prior. No acute compression fractures areseen. There is still slight anterolisthesis of L4 and L5. Alignment does not change significantly with flexion or extension. The unfused disc spaces are maintained. There are tiny endplate spurs. There is mid and lower lumbar facethypertrophy. The SI joints are intact and show minor sclerosis. There are hemostasis clips at the right upper quadrant and pelvis on both sides. XR/XR lumbar spine AP/LAT/FLX/EXT IMPRESSION: POSTOPERATIVE AND DEGENERATIVE CHANGES, SIMILAR TO THE PRIOR. NO ACUTE FINDINGS. Impression dictated by: Dinah Corrales M.D. 03/26/2025 9:17 AM Dictation Location: [employer] Transcribed By: DANICA 03/26/25916 Dictated By: Dinah Corrales MD 03/26/25913 Signed By: 03/26/25916 [facility] Work Phone: XR lumbar spine AP/LAT/FLX/EXTon 11-20-2417GR lumbar spine AP/LAT/FLX/EXTPEOPLES HOS[facility] [address] [place] [address] XRay Report Signed Patient: Juan Luis Chandler MR#: [id number] : 1945 Acct:[id number] Age/Sex: 79 / M ADM Date: 03/26/25 Loc: XD Room: Type: [facility] Attending Dr: Oriana Zuniga APRN Copies [...] Corrales M.D. 03/26/2025 9:17 AM Dictation Location: [place] [address] Transcribed By: DANICA 03/26/25916 Dictated By: Dinah Corrales MD 03/26/25913 Signed By: 03/26/25916[facility] Physician GroupComplete Blood Count Auto Diffon 13-34-6952Rrqaseaux (Bld) [#/Vol]0.1 10*3/uLNormal0.0-0.2The [facility] Physician GroupComment on above:Order Comment: Reason for Exam Primary hypertensionResult Comment: PERFORMED BY: [place] [address] PATHOLOGIST AIRPORT TRAFFIC CONTROLLER MARTELL LEW M.D.Performed By: #### LIPID, CBC, CMP #### [place] [address] USABasophils/100 WBC (Bld)0.7 %Normal.The [facility] Physician GroupComment on above:Order Comment: Reason for Exam Primary hypertension Performed By: #### LIPID, CBC, CMP #### [place] [address] USAEosinophils (Bld) [#/Vol]0.2 10*3/uLNormal0.0-0.45The [facility] Physician GroupComment on above:Order Comment: Reason for Exam Primary hypertensionPerformed By: #### LIPID, CBC, CMP #### [place] [address] USAEosinophils/100 WBC (Bld)2.6 %Normal.The [facility] Physician GroupComment on above:Order Comment: Reason for Exam Primary hypertensionPerformed By: #### LIPID, CBC, CMP #### [place] [id number] USAErythrocyte distribution width (RBC) [Ratio]12.8 %Normal 12.0-14.8The [facility] Physician GroupComment on above:Order Comment: Reason for Exam Primary hypertensionPerformed By: #### LIPID, CBC, CMP #### [place] [address] USAHematocrit (Bld) [Volume fraction]45.7 %Ypbfkv38.8-50.0The [facility] Physician GroupComment on above:Order Comment: Reason for Exam Primary hypertensionPerformed By: #### LIPID, CBC, CMP #### [place] [address] USAHemoglobin (Bld) [Mass/Vol]15.7 g/sKVuwfxk41.0-17.0The [facility] Physician GroupComment on above:Order Comment: Reason for Exam Primary hypertensionPerformed By: #### LIPID, CBC, CMP #### [place] [address] USALymphocytes (Bld) [#/Vol]1.9 10*3/uLNormal1.00-4.8The [facility] Physician GroupComment on above:Order Comment: Reason for Exam Primary hypertensionPerformed By: #### LIPID, CBC, CMP #### [place] [address] USALymphocytes/100 WBC (Bld)22.1 %Normal.The [facility] Physician GroupComment on above:Order Comment: Reason for Exam Primary hypertensionPerformed By: #### LIPID, CBC, CMP #### [address] (RBC) [Entitic mass]30.1 twWkzurd72.5-35.2The [facility] Physician GroupComment on above:Order Comment: Reason for Exam Primary hypertensionPerformed By: #### LIPID, CBC, CMP #### [address] (RBC) [Entitic vol]87.3 uBNthcxf14.5-101The [facility] Physician GroupComment on above:Order Comment: Reason for Exam Primary hypertensionPerformed By: #### LIPID, CBC, CMP #### [place] [address] USAMean Corpuscular HGB Conc34.4 g/vISklsut84.5-35.6The [facility] Physician GroupComment on above:Order Comment: Reason for Exam Primary hypertensionPerformed By: #### LIPID, CBC, CMP #### [facility] [address] [place] [address] USAMonocytes (Bld) [#/Vol]1.0 10*3/uLHigh0.0-0.8The [facility] Physician GroupComment on above:Order Comment: Reason for Exam Primary hypertensionPerformed By: #### LIPID, CBC, CMP #### [facility] [address] [place] [address] USAMonocytes/100 WBC (Bld)11.4 %Normal.The [facility] Physician GroupComment on above:Order Comment: Reason for Exam Primary hypertensionPerformed By: #### LIPID, CBC, CMP #### [facility] [address] [place] [address] USANeutrophils (Bld) [#/Vol]5.5 10*3/uLNormal1.8-7.7The [facility] Physician GroupComment on above:Order Comment: Reason for Exam Primary hypertensionPerformed By: #### LIPID, CBC, CMP #### [facility] [address] [place] [address] USANeutrophils/100 WBC (Bld)63.2 %Normal.The [facility] Physician GroupComment on above:Order Comment: Reason for Exam Primary hypertensionPerformed By: #### LIPID, CBC, CMP #### [place] [address] USANRBC%0.0 /100{WBC}Normal0-0.5The [facility] Physician Group Comment on above:Order Comment: Reason for Exam Primary hypertensionPerformed By: #### LIPID, CBC, CMP #### [facility] [address] [place] [address] USAPlatelet mean volume (Bld) [Entitic vol]8.3 fLNormal 6.6-10.1The [facility] Physician GroupComment on above:Order Comment: Reason for Exam Primary hypertensionPerformed By: #### LIPID, CBC, CMP #### [facility] [address] [place] [address] USAPlatelets (Bld) [#/Vol]239 10*3/eMKtsvuw648-913Tak [facility] Physician GroupComment on above:Order Comment: Reason for Exam Primary hypertensionPerformed By: #### LIPID, CBC, CMP #### [facility] [address] [place] [address] USARBC (Bld) [#/Vol]5.24 10*6/uLNormal3.90-5.60The [facility] Physician GroupComment on above:Order Comment: Reason for Exam Primary hypertensionPerformed By: #### LIPID, CBC, CMP #### [facility] [address] [place] [address] USAWBC (Bld) [#/Vol]8.6 10*3/uLNormal4.1-10.5The [facility] Physician GroupComment on above:Order Comment: Reason for Exam Primary hypertensionPerformed By: #### LIPID, CBC, CMP #### [place] [address] USAComprehensive Metabolic Panelon 25-69-9634Rhbpaui [Mass/Vol]4.4 g/dLNormal3.5-5.7The [facility] Physician GroupComment on above: Order Comment: Reason for Exam Primary hypertensionPerformed By: #### LIPID, CBC, CMP #### [place] [address] USAAlbumin/Globulin [Mass ratio]1.8 {ratio}NormalThe [facility] Physician GroupComment on above:Order Comment: Reason for Exam Primary hypertensionPerformed By: #### LIPID, CBC, CMP #### [facility] [address] [place] [address] USAALP [Catalytic activity/Vol]63 U/QGlnwxm90-375Hkt [facility] Physician GroupComment on above:Order Comment: Reason for Exam Primary hypertensionPerformed By: #### LIPID, CBC, CMP #### [facility] [address] [place] [address] USAALT [Catalytic activity/Vol]17 U/LNormal7-52The [facility] Physician GroupComment on above:Order Comment: Reason for Exam Primary hypertensionPerformed By: #### LIPID, CBC, CMP #### [facility] [address] [place] [address] USAAnion gap [Moles/Vol]10.0 mmol/LNormal6.0-15.0The [facility] Physician GroupComment on above:Order Comment: Reason for Exam Primary hypertensionPerformed By: #### LIPID, CBC, CMP #### [facility] [address] [place] [address] USAAST [Catalytic activity/Vol]14 U/MNaploz75-80Efk [facility] Physician GroupComment on above:Order Comment: Reason for Exam Primary hypertensionPerformed By: #### LIPID, CBC, CMP #### [facility] [address] [place] [address] USABilirubin [Mass/Vol]1.0 mg/dLNormal0.3-1.0The [facility] Physician GroupComment on above:Order Comment: Reason for Exam Primary hypertensionPerformed By: #### LIPID, CBC, CMP #### [facility] [address] [place] [address] USACalcium [Mass/Vol]10.0 mg/dLNormal8.6-10.3The [facility] Physician GroupComment on above:Order Comment: Reason for Exam Primary hypertensionPerformed By: #### LIPID, CBC, CMP #### [facility] [address] [place] [address] USAChloride [Moles/Vol]101 mmol/QDmxonh70-197Tyx [facility] Physician GroupComment on above:Order Comment: Reason for Exam Primary hypertensionPerformed By: #### LIPID, CBC, CMP #### [facility] [address] [place] [address] USACO2 [Moles/Vol]32.7 mmol/LHigh21.0-31.0The [facility] Physician GroupComment on above:Order Comment: Reason for Exam Primary hypertensionPerformed By: #### LIPID, CBC, CMP #### [facility] [address] [place] [address] USACreatinine [Mass/Vol]1.09 mg/dLNormal0.70-1.30The [facility] Physician GroupComment on above:Order Comment: Reason for Exam Primary hypertensionPerformed By: #### LIPID, CBC, CMP #### [facility] [address] [place] [address] USAGFR/1.73 sq M.predicted MDRD (S/P/Bld) [Vol rate/Area] mL/min/{1.73_m2}NormalThe [facility] Physician GroupComment on above:Order Comment: Reason for Exam Primary hypertensionPerformed By: #### LIPID, CBC, CMP #### [facility] [address] [place] [id number] USAGlobulin (S) [Mass/Vol]2.5 g/dLNormalThe [facility] Physician GroupComment on above:Order Comment: Reason for Exam Primary hypertensionPerformed By: #### LIPID, CBC, CMP #### [facility] [address] [place] [address] USAGlucose [Mass/Vol]110 mg/uLEost04-651Nsr [facility] Physician GroupComment on above:Order Comment: Reason for Exam Primary hypertensionResult Comment: Random Glucose Reference Range is dependent on time and content of last meal. Glucose of more than 200 mg/dL in a nonstressed, ambulatory subject supports the diagnosis of Diabetes Mellitus. ADA recommended reference rangePerformed By: #### LIPID, CBC, CMP #### [facility] [address] [place] [id number] USAPotassium [Moles/Vol]4.7 mmol/LNormal3.5-5.1The [facility] Physician GroupComment on above:Order Comment: Reason for Exam Primary hypertensionPerformed By: #### LIPID, CBC, CMP #### [facility] [address] [place] [id number] USAProtein [Mass/Vol]6.9 g/dLNormal6.4-8.9The [facility] Physician GroupComment on above:Order Comment: Reason for Exam Primary hypertensionPerformed By: #### LIPID, CBC, CMP #### [facility] [address] [place] [phone] USASodium [Moles/Vol]139 mmol/ZDvxtoi754-312Pss [facility] Physician GroupComment on above:Order Comment: Reason for Exam Primary hypertensionPerformed By: #### LIPID, CBC, CMP #### [facility] [address] [place] [phone] USAUrea nitrogen [Mass/Vol]12 mg/dLNormal7-e [facility] Physician GroupComment on above:Order Comment: Reason for Exam Primary hypertensionPerformed By: #### LIPID, CBC, CMP #### [facility] [address] [place] [address] USALipid Panelon [id number] [Mass/Vol]176 mg/dL Odjemd006-375Rwv [facility] Physician GroupComment on above:Order Comment: Reason for Exam Primary hypertensionResult Comment: Chol less than 200 mg/dl low risk Chol 201-239 mg/dl borderline risk Chol 240 mg/dl and greater high riskPerformed By: #### LIPID, CBC, CMP #### [facility] [address] [place] [address] USACholesterol in HDL [Mass/Vol]46 mg/lNLppsmq93-58Ofx [facility] Physician GroupComment on above:Order Comment: Reason for Exam Primary hypertensionResult Comment: HDL CHOL ATP-III CLASSIFICATION Cardiovascular Risk HDL > or equal to 60 mg/dL LOW HDL < 40 mg/dL HIGHPerformed By: #### LIPID, CBC, CMP #### [facility] [address] [place] [address] USACholesterol.total/Cholesterol in HDL [Mass ratio]3.8 {ratio}Normal<5.0The [facility] Physician [facility] HospitalComment on above:Order Comment: Reason for Exam Primary hypertensionResult Comment: PERFORMED BY: [address] [address] PATHOLOGIST AIRPORT TRAFFIC CONTROLLER MARTELL LEW M.D.Performed By: #### LIPID, CBC, CMP #### [facility] [address] [place] [address] USALDL Cholesterol,Gnfnwhfhle234 mg/dLHigh0-100The [facility] Physician GroupComment on above:Order Comment: Reason for Exam Primary hypertensionResult Comment: LDL ATP III CLASSIFICATION LDL less than 100 mg/dL Optimal LDL 100-129 mg/dL Near or above optimal LDL 130-159 mg/dL Borderline high LDL 160-189 mg/dL High LDL greater than 189 mg/dL Very highPerformed By: #### LIPID, CBC, CMP #### [facility] [address] [place] [address] USATriglyceride w/Ckafgr817 mg/dLNormal0-149[facility] Physician GroupComment on above:Order Comment: Reason for Exam Primary hypertensionResult Comment: TRIG ATP III CLASSIFICATION TRIG less than 150 mg/dL Normal TRIG 150-199 mg/dL Borderline high TRIG 200-500 mg/dL High TRIG greater than 500 mg/dL Very high Standard traceable to the Center for Disease Conrtrol and Prevention (CDC) test method.Performed By: #### LIPID, CBC, CMP #### [facility] [address] [place] [address] USAVLDL GNPMHWXIGUD34 mg/dLNormAdventHealth East Orlando Physician GroupComment on above:Order Comment: Reason for Exam Primary hypertension Performed By: #### LIPID, CBC, CMP #### [facility] [address] [place] [address] USAAmbulatory Visit Summaryon [id number] Visit Summary JUAN LUIS CHANDLER :1945 Visit Date:07/26/2022 Ambulatory Visit Instructions Your Diagnosis History of malignant neoplasm of prostate Nocturia Tests Performed Urnls Dip Stick Auto w/o Microscopy POC 73941 Your Care Team Attending Physician - Abdiel [...] URL When: Where: [facility] [address] [place] [address]- Medications What How Much When Instructions Unchanged [...] Urnls Dip Stick Auto w/o Microscopy POC 48480 (07/26/2022) Bilirubin Urine Dipstick - Negative Blood Urine Dipstick - Trace-intact Glucose Urine Dipstick - Negative Ketones Urine Dipstick - Negative Leukocytes Urine Dipstick - Negative Nitrite Urine Dipstick - Negative Protein Urine Dipstick - Negative Specific Bagley Urine Dipstick - 1.010 Urine Appearance Urine [...] such as being Afric (more content not included)...[facility] HospitalAmb[facility] Summary JUAN LUIS CHANDLER :1945 Visit Date:07/26/2022 Ambulatory Visit Instructions Your Diagnosis History of malignant neoplasm of prostate Nocturia Tests Performed Urnls Dip Stick Auto w/o Microscopy POC 72127 Your Care Team Attending Physician - Abdiel [...] Following Appointments Follow Up with ARIANNA HUTTON, ESTHER [place] When: Where: [facility] [address], [place] [address]- Medications What How Much When Instructions Unchanged [...] Urnls Dip Stick Auto w/o Microscopy POC 94465 (07/26/2022) Bilirubin Urine Dipstick - Negative Blood Urine Dipstick - Trace-intact Glucose Urine Dipstick - Negative Ketones Urine Dipstick - Negative Leukocytes Urine Dipstick - Negative Nitrite Urine Dipstick - Negative Protein Urine Dipstick - Negative Specific [place] Urine Dipstick - 1.010 Urine Appearance Urine [...] such as being Afric (more content not included)...[facility] HospitalPatient Educationon 07-26-2022 Patient EducationOncology Cancer Screening for Men A cancer screening [...] such as being or having a close familymember with prostate cancer. ? You have inherited [...] if anything looks unusual. Men with a vxvvvf-pexr-wmewxc risk for skin cancer may want to see a security services specialist (safe and vault service mechanic) for an annual body check. Where to find more information ? National Cancer [place]: https://www.cancer.gov/about-cancer/screening ? Centers for Disease Control and Prevention: https://www.cdc.gov/cancer/dcpc/prevention/screening.htm ? [place] [employer]: https://www.cancer.org/latest-news/8-cxxrhl-tgxovekbh-kzrkc-jie-drs.html Contact a health care (more content not included)...[facility] HospitalUrology Office/Clinic Noteon [id number] Office/Clinic NoteChief Complaint 1yr PSA HPI Staff 1yr PSA [...] URL [facility] [address], [place] [address]- Additional Instructions: PRN Patient Education Cancer Screening [...] Father. Immunizations Vaccine Date Status SARS-CoV-2 (COVID-19) mRNAMUL.[id number] 05/09/2022 Recorded SARS-CoV-2 (COVID-19) mRNA BNT-162b2 vax [...] Protein Urine Dipstick: Negative (07/26/22 13:00:00) Specific [place] Urine Dipstick: 1.010 (07/26/22 13:00:00) Urine Appearance Urine Dipstick: Clear (07/26/22 13:00:00) Urine Color Urine Dipstick: Yellow (07/26/22 13:00:00) Urobilinogen Urine Dipstick: Normal 0.2-1 EU/dl (07/26/22 13:00:00) pH Urine Dipstick: 6 (07/26/22 13:00:00)[facility] HospitalComment on above:Result Comment: Electronically Signed By: Abdiel ROSAS MD\.br\Date and Time Signed: 07/26/22 14:01 EST\.br\Electronically Co-Signed By: Leena Preciado\.br\Date and Time Co-Signed: 07/26/22 14:00 ESTPROF CHEM 8 (BAS METB)on [id number] gap [Moles/Vol]8.7 mmol/LNormalThe [facility] HospitalComment on above:Performed By: #### BMP #### [facility] [address] [place] [address] Dr. Jaime LandaCalcium [Mass/Vol]9.3 mg/dLNormal8.5-10.1[facility] Comment on above:Performed By: #### BMP #### [facility] [address] [place] [address] Dr. Jaime LandaChloride [Moles/Vol]101 mmol/IPpsbwq81-173ZxcWestern Reserve Hospital Comment on above:Performed By: #### BMP #### [facility] [address] [place] [address] [address] Jaime LandaCO2 [Moles/Vol]32.1 mmol/LCritically high21.0-32.0[facility] HospitalComment on above:Performed By: #### BMP #### [facility] [address] [place] [address] Dr. Jaime LandaCreatinine [Mass/Vol]1.02 mg/dLNormal0.70-1.30The [facility] HospitalComment on above:Performed By: #### BMP #### [facility] [address] [place] [address] Dr. Jaime RomanGFR-AF SWEDISH>60Normal>=60The [facility] HospitalComment on above:Performed By: #### BMP #### [facility] [address] [place] [address] Dr. Jaime RomanGFR-NON AF SWEDISH>60Normal>=60The [facility] HospitalComment on above:Performed By: #### BMP #### [facility] [address] [place] [address] Dr. Jaime LandaGlucose [Mass/Vol]112 mg/dLCritically aukx23-078Fct [facility] HospitalComment on above:Performed By: #### BMP #### [facility] [address] [place] [address] Dr. Jaime LandaPotassium [Moles/Vol]3.8 mmol/LNormal3.5-5.1The [facility] Comment on above:Performed By: #### BMP #### [facility] [address] [place] [address] Dr. Jaime LandaSodium [Moles/Vol]138 mmol/TClxfpb551-585AoxWestern Reserve Hospital Comment on above:Performed By: #### BMP #### [facility] [address] [place] [address] Dr. Jaime LandaUrea nitrogen [Mass/Vol]8.0 mg/dLNormal7.0-18.0The [facility] HospitalComment on above:Performed By: #### BMP #### [facility] [address] [place] [address] Dr. Jaime LandaUrea nitrogen/Creatinine [Mass ratio]7.8 mg/mgNormalThe [facility] HospitalComment on above:Performed By: #### BMP #### [facility] [address] [place] [address] Dr. Jaime LandaLab Reportson [id number] Reports [id number]:127NormalKettering Health Dayton AUTO DIFFon [id number] #0.1 103/ulNormal0.0-0.1The [facility] HospitalComment on above:Performed By: #### CBC ####[facility] [address] [place], [place] [address]Dr.Jaime ChangBasophils/100 WBC (Bld)1.2 %Normal0.2-2.0The [facility] HospitalComment on above:Performed By: #### CBC ####[facility] C[address]ws[address] [place], [place] [address]Dr.Jaime ChangEO #0.2 103/ulNormal0.0-0.7The [facility] HospitalComment on above:Performed By: #### CBC ####[facility] H[address]chhi[address] [place], [place] [address]Dr.Jaime ChangEosinophils/100 WBC (Bld)2.7 %Normal 0.9-7.0The [facility] HospitalComment on above:Performed By: #### CBC ####[facility] N[address] [place], [place] [address]Dr.Jaime Landa Erythrocyte distribution width (RBC) [Ratio]12.5 %Vxgnlq01.0-15.0The [facility] HospitalComment on above:Performed By: #### CBC ####[facility] Eprwzrijpk[address] [place], [place] [address]Dr.Jaime LandaHematocrit (Bld) [Volume fraction]44.7 %Zbphsd46.0-54.0The [facility] HospitalComment on above:Performed By: #### CBC ####[facility] Qpih[address]au[address] [place], [place] [address]Dr.Jaime ChangHemoglobin (Bld) [Mass/Vol]15.1 g/dL Huankt45.0-18.0The [facility] HospitalComment on above:Performed By: #### CBC ####[facility] [address]hll[address] [place], [place] [address]Dr. Jaime ChangIG #0.02 10e3/ulNormal0.00-0.03The [facility] HospitalComment on above: Performed By: #### CBC ####[facility] Pr[address]qgbwe[address] [place], [place] [address]Dr.Jaime LandaIG %0.3 %Normal0.0-0.5The [facility] HospitalComment on above:Performed By: #### CBC ####[facility] Qyadnfhqcx[address] [place], [place] [address]Dr.Jaime LandaLYH #1.5 103/ulNormal1.2-3.8The [facility] HospitalComment on above:Performed By: #### CBC ####[facility] Bqbvusfxxf[address] [place], [place] [address]Dr. Jaime LandaLymphocytes/100 WBC (Bld)19.1 %Critically low20.5-60.0The [facility] HospitalComment on above:Performed By: #### CBC ####[facility] [address] [place], [place] [address]Dr.Jaime LandaMANUAL DIFF REQ NONormalThe [facility] HospitalComment on above:Performed By: #### CBC ####[facility] Ambbaicril[address] [place], [place] [address]Dr. Jaime LandaST[facility] (RBC) [Entitic mass]29.4 dgNpzizl49.9-34.0The [facility] Comment on above:Performed By: #### CBC ####[facility] Lomdhtroid[address] [place], [place] [address]Dr.Jaime LandaHC (RBC) [Mass/Vol]33.8 g/dL Oeafey49.9-35.2The [facility] HospitalComment on above:Performed By: #### CBC ####[facility] Pcieiglgpp[address] [place], [place] [address]Dr. Jaime LandaV (RBC) [Entitic vol]87.1 vMNcqssf28.0-94.0The [facility] Comment on above:Performed By: #### CBC ####[facility] Xyzwmvwrsc[address] [place], [place] [address]Dr.Jaime LandaSAINT JOHN'S HOSPITALO #0.7 103/ulNormal0.3-0.8 The [facility] HospitalComment on above:Performed By: #### CBC ####[facility] [address] [place] [address]Dr.Jaime Landa Monocytes/100 WBC (Bld)9.5 %Normal1.7-12.0The [facility] HospitalComment on above: Performed By: #### CBC ####[facility] Ovcoqzxerv[address] [place], [place] [address]Dr.Jaime LandaNEUT #5.2 103/ulNormal1.4-6.5The [facility] HospitalComment on above:Performed By: #### CBC ####[facility] Ykowknvwjd[address] [place], [place] [address]Dr.Jaime LandaNeutrophils/100 WBC (Bld)67.2 %Kgxwiw60.0-75.0The [facility] HospitalComment on above:Performed By: #### CBC ####[facility] [address]advtyaxj[address] [place], [place] [address]Dr.Jaime LandaPlatelet mean volume (Bld) [Entitic vol]10.4 fLNormal9.5-13.5 The [facility] HospitalComment on above:Performed By: #### CBC ####[facility] Wtf[address] [place], [place] [address]Dr.Jaime DnbgtFFW566 103/ltXbulma541-414Lbj [facility] HospitalComment on above:Performed By: #### CBC ####[facility] Coisdegcbb[address] [place], [place] [address]Dr. Jaime ChangRBC5.13 106/ulNormal4.70-6.10The [facility] HospitalComment on above: Performed By: #### CBC ####[facility] Orfyceewbn[address] [place], [place] [address]Dr.Jaime ChangWBC7.8 103/ulNormal4.0-11.0The [facility] HospitalComment on above:Performed By: #### CBC ####[facility] [address]qhhiqvx[address] [place], [place] [address]Dr.Jaime ChangPROF 14(COMP METB)on 27-91-4047Ailxdvs [Mass/Vol]3.9 g/dLNormal3.4-5.0The [facility] Comment on above:Performed By: #### T4, CMP, TSH #### [facility] [address] [place] [address] [address] Jaime LandaAlbumin/Globulin [Mass ratio]1.1 {ratio}NormalThe [facility] HospitalComment on above:Performed By: #### T4, CMP, TSH #### [facility] [address] [place] [address] [address] Jaime Lombardo [Catalytic activity/Vol]77 U/WWjproz71-966Qpp [facility] HospitalComment on above:Performed By: #### T4, CMP, TSH #### [facility] [address] [place] [address] [address] Jaime Richard [Catalytic activity/Vol]25 U/MEjaatk19-13Jaf [facility] HospitalComment on above:Performed By: #### T4, CMP, TSH #### [facility] [address] [place] [address] [address] Jaime LandaAnion gap [Moles/Vol]9.4 mmol/LNormalThe [facility] HospitalComment on above:Performed By: #### T4, CMP, TSH #### [facility] [address] [place] [address] [address] Jaime LandaAST [Catalytic activity/Vol]13 U/LCritically ykz45-99Mir The MetroHealth Systemment on above:Performed By: #### T4, CMP, TSH #### [facility] [address] [place] [address] [address] Jaime LandaBilirubin [Mass/Vol]0.7 mg/dLNormal0.2-1.0The [facility] Comment on above:Performed By: #### T4, CMP, TSH #### [facility] [address] [place] [address] [address] Jaime LandaCalcium [Mass/Vol]9.3 mg/dLNormal8.5-10.1The [facility] Comment on above:Performed By: #### T4, CMP, TSH #### [facility] [address] [place] [address] [address] Jaime LandaChloride [Moles/Vol]102 mmol/DEwfekh43-669Xog [facility] Comment on above:Performed By: #### T4, CMP, TSH #### [facility] [address] [place] [address] Dr. Jaime LandaCO2 [Moles/Vol]30.6 mmol/OPoptug42.0-32.0The [facility] Comment on above:Performed By: #### T4, CMP, TSH #### [facility] [address] [place] [address] Dr. Jaime LandaCreatinine [Mass/Vol]0.90 mg/dLNormal0.70-1.30The [facility] HospitalComment on above:Performed By: #### T4, CMP, TSH #### [facility] [address] [place] [address] Dr. Jaime RomanGFR-AF SWEDISH>60Normal>=60The [facility] HospitalComment on above:Performed By: #### T4, CMP, TSH #### [facility] [address] [place] [address] Dr. Jaime RomanGFR-NON AF SWEDISH>60Normal>=60The [facility] HospitalComment on above:Performed By: #### T4, CMP, TSH #### [facility] [address] [place] [address] Dr. Jaime LandaGlobulin (S) [Mass/Vol]3.5 g/dLNormalThe [facility] HospitalComment on above:Performed By: #### T4, CMP, TSH #### [facility] [address] [place] [address] Dr. Jaime LandaGlucose [Mass/Vol]111 mg/dLCritically tsgz65-911RuzWestern Reserve HospitalComment on above:Performed By: #### T4, CMP, TSH #### [facility] [address] [place] [address] Dr. Jaime LandaPotassium [Moles/Vol]4.0 mmol/LNormal3.5-5.1The [facility] Comment on above:Performed By: #### T4, CMP, TSH #### [facility] [address] [place] [address] Dr. Jaime LandaProtein [Mass/Vol]7.4 g/dLNormal6.4-8.2The [facility] Comment on above:Performed By: #### T4, CMP, TSH #### [facility] [address] [place] [address] Dr. Jaime LandaSodium [Moles/Vol]138 mmol/YUacgco531-186Ugi [facility] Comment on above:Performed By: #### T4, CMP, TSH #### [facility] [address] [place] [address] Dr. Jaime LandaUrea nitrogen [Mass/Vol]6.0 mg/dLCritically low7.0-18.0The [facility] HospitalComment on above:Performed By: #### T4, CMP, TSH #### [facility] [address] [place] [address] Dr. Jaime Mcgowan nitrogen/Creatinine [Mass ratio]6.7 mg/mgNormalThe [facility] HospitalComment on above:Performed By: #### T4, CMP, TSH #### [facility] [address] [place] [address] Dr. Jaime Liriano 83-29-9430M7 [Mass/Vol]6.20 ug/dLNormal4.50-12.10The [facility] HospitalComment on above:Performed By: #### T4, CMP, TSH #### [facility] [address] [place] [address] Dr. Jaime Galvin 19-51-8452YWE5.593 uIU/mLNormal0.358-3.740The [facility] HospitalComment on above:Performed By: #### T4, CMP, TSH #### [facility] [address] [place] [address] Dr. Jaime Wall-19 PCR (CVDFORSYTH DENTAL IN[facility] FOR CH[facility])on 29-03-8382OWTF-CoV-2 (COVID-19) RNA CLAU+probe Ql (Unsp spec)Not detectedNormalNOT DETECTEDThe [facility] Comment on above:Result Comment: When diagnostic testing is negative, the [...] for this test is supported by the [place] of Health and Human Service's declaration that circumstances exist to justify the emergency use of in vitro diagnostics for the detection and/or diagnosis of the virus that causes COVID-19. This EUA will remain in effect for the duration of the COVID-19 declaration justifying emergency of IVDs, unless it is terminated or revoked by the FDA (after which the test may no longer be used).Performed By: #### CVDTBH #### [facility] [address] [place] [address] Dr. Jaime Brooks AUTO DIFFon [id number] #0.1 103/ulNormal0.0-0.1The [facility] HospitalComment on above:Performed By: #### CBC #### [facility] [address] [place] [address] Dr. Jaime LandaBasophils/100 WBC (Bld)1.1 %Normal0.2-2.0[facility] Comment on above:Performed By: #### CBC #### [facility] [address] [place] [address] Dr. Jaime Walter #0.4 103/ulNormal0.0-0.7The [facility] HospitalComment on above: Performed By: #### CBC #### [facility] [address] [place] [address] Dr. Jiame Romanosinophils/100 WBC (Bld)4.0 %Normal0.9-7.0The [facility] Comment on above:Performed By: #### CBC #### [facility] [address] [place] [address] Dr. Jaime Romanrythrocyte distribution width (RBC) [Ratio]12.6 %Fpgcvn78.0-15.0 The [facility] HospitalComment on above:Performed By: #### CBC #### [facility] [address] [address] [address] Jaime LandaHematocrit (Bld) [Volume fraction]45.6 %Onethx37.0-54.0The [facility] HospitalComment on above:Performed By: #### CBC #### [facility] [address] [place] [address] Dr. Jaime LandaHemoglobin (Bld) [Mass/Vol]15.2 g/dBOtpmpt17.0-18.0The [facility] HospitalComment on above:Performed By: #### CBC #### [facility] [address] [place] [address] Dr. Jaime LandaIG #0.03 10e3/ulNormal0.00-0.03The [facility] HospitalComsp[facility] on above:Performed By: #### CBC #### [facility] [address] [place] [address] Dr. Jaime Gil %0.3 %Normal0.0-0.5The [facility] HospitalComment on above: Performed By: #### CBC #### [facility] [address] [place] [address] Dr. Jaime Gunderson #1.7 103/ulNormal1.2-3.8The [facility] HospitalComsp[facility] on above:Performed By: #### CBC #### [facility] [address] [place] [address] Dr. Jaime Cottonmphocytes/100 WBC (Bld)18.0 %Critically low20.5-60.0The [facility] HospitalComment on above:Performed By: #### CBC #### [facility] [address] [place] [address] Dr. Jaime AlarconUAL DIFF REQNONormalThe [facility] HospitalComment on above: Performed By: #### CBC #### [facility] [address] [place] [address] Dr. Jaime Gallegos (RBC) [Entitic mass]29.0 gmIiauwm67.9-34.0The [facility] HospitalComment on above:Performed By: #### CBC #### [facility] [address] [place] [address] Dr. Jaime AlcarazHC (RBC) [Mass/Vol]33.3 g/vCBaiken77.9-35.2The [facility] HospitalComment on above:Performed By: #### CBC #### [facility] [address] [place] [address] Dr. Jaime AlcarazV (RBC) [Entitic vol]87.0 oKGavpxz72.0-94.0The [facility] HospitalComment on above:Performed By: #### CBC #### [facility] [address] [place] [address] Dr. Jaime Feng #0.9 103/ulCritically high0.3-0.8The [facility] Comment on above:Performed By: #### CBC #### [facility] [address] [place] [address] Dr. Jaime Ariasocytes/100 WBC (Bld)9.4 %Normal1.7-12.0The [facility] Comment on above:Performed By: #### CBC #### [facility] [address] [place] [address] Dr. Jaime La #6.2 103/ulNormal1.4-6.5The [facility] HospitalComment on above:Performed By: #### CBC #### [facility] [address] [place] [address] Dr. Jaime Segalutrophils/100 WBC (Bld)67.2 %Tckxzp26.0-75.0The [facility] HospitalComment on above:Performed By: #### CBC #### [facility] [address] [place] [address] Dr. Jaime Waldroplet mean volume (Bld) [Entitic vol]10.2 fLNormal9.5-13.5The [facility] HospitalComment on above:Performed By: #### CBC #### [facility] [address] [place] [address] Dr. Yilan MbqyoRLP494 103/vgOvjnop370-728Reu [facility] HospitalComment on above: Performed By: #### CBC #### [facility] [address] [address] [address] Jaime LandaRBC5.24 106/ulNormal4.70-6.10The [facility] HospitalComment on above:Performed By: #### CBC #### [facility] [address] [address] [address] Jaime LanadWBC9.3 103/ulNormal4.0-11.0The [facility] HospitalComment on above: Performed By: #### CBC #### [facility] [address] [address] [address] Jaime JonesASEon 90-07-6680Ctvsjk [Catalytic activity/Vol]62.0 U/L Critically low73.0-393.0The [facility] HospitalComment on above:Performed By: #### CMP, LIPA ####[facility] [address] [address]Dr. Jaime ChangPROF 14(COMP METB)on 53-24-8517Cpqxjia [Mass/Vol]4.0 g/dL Normal3.4-5.0The [facility] HospitalComment on above:Performed By: #### CMP, LIPA ####[facility] [address] [address]Dr. Jaime ChangAlbumin/Globulin [Mass ratio]1.3 {ratio}NormalThe [facility] Comment on above:Performed By: #### CMP, LIPA ####[facility] [address] [address]Dr. Cristinalan ChangALP [Catalytic activity/Vol]77 U/ONvktho54-737Eya [facility] HospitalComment on above:Performed By: #### CMP, LIPA ####[facility] [address] [address]Dr. Cristinalan ChangALT [Catalytic activity/Vol]23 U/L Mpfinl18-90Dzu [facility] HospitalComment on above:Performed By: #### CMP, LIPA ####[facility] [address] [address]Dr. Yilan ChangAnion gap [Moles/Vol]13.7 mmol/LNormalThe [facility] HospitalComment on above:Performed By: #### CMP, LIPA ####[facility] [address] [address]Dr. Yilan ChangAST [Catalytic activity/Vol]12 U/L Critically soq60-75Fnz [facility] HospitalComment on above:Performed By: #### CMP, LIPA ####[facility] [address] [address]Dr[address] Yilan ChangBilirubin [Mass/Vol]0.7 mg/dLNormal0.2-1.0The [facility] Comment on above:Performed By: #### CMP, LIPA ####[facility] [address] [address]Dr. Yilan ChangCalcium [Mass/Vol]9.2 mg/dLNormal8.5-10.1The [facility] HospitalComment on above:Performed By: #### CMP, LIPA ####[facility] [address] [address]Dr. Yilan ChangChloride [Moles/Vol]104 mmol/LNormal 98-107The [facility] HospitalComment on above:Performed By: #### CMP, LIPA ####[facility] [address] [address]Dr. Yilan ChangCO2 [Moles/Vol]27.2 mmol/TMgfvez16.0-32.0The [facility] HospitalComment on above:Performed By: #### CMP, LIPA ####[facility] [address] [address]Dr. Yilan ChangCreatinine [Mass/Vol]0.89 mg/dL Normal0.70-1.30The [facility] HospitalComment on above:Performed By: #### CMP, LIPA ####[facility] [address] [address] Yilan ChangEGFR-AF SWEDISH>60Normal>=60The [facility] HospitalComment on above:Performed By: #### CMP, LIPA ####[facility] [address] [address]Dr. Yilan ChangEGFR-NON AF SWEDISH>60Normal>=60 The [facility] HospitalComment on above:Performed By: #### CMP, LIPA ####[facility] [address] [address]Dr. Yilan Landa Globulin (S) [Mass/Vol]3.2 g/dLNormalThe [facility] HospitalComment on above: Performed By: #### CMP, LIPA ####[facility] [address] [place], [place] [address]Dr. Yilan ChangGlucose [Mass/Vol]108 mg/dLCritically nhcs02-169Mcy [facility] HospitalComment on above:Performed By: #### CMP, LIPA ####[facility] [address] [place], [place] [address]Dr. Yilan ChangPotassium [Moles/Vol]3.9 mmol/LNormal3.5-5.1The [facility] Comment on above:Performed By: #### CMP, LIPA ####[facility] [address] [place], [place] [address]Dr. Yilan ChangProtein [Mass/Vol]7.2 g/dLNormal6.4-8.2The [facility] HospitalComment on above:Performed By: #### CMP, LIPA ####[facility] [address] [place], [place] [address]Dr. Yilan ChangSodium [Moles/Vol]141 mmol/LNormal 136-145The [facility] Systemment on above:Performed By: #### CMP, LIPA ####[facility] [address] [place], [place] [address]Dr. Yilan ChangUrea nitrogen [Mass/Vol]7.0 mg/dLNormal7.0-18.0The [facility] Comment on above:Performed By: #### CMP, LIPA ####[facility] [address] [place], [place] [address]Dr. Yilan ChangUrea nitrogen/Creatinine [Mass ratio]7.9 mg/mgNormalThCommunity Memorial HospitalComment on above:Performed By: #### DANY LIPA ####[facility] [address] [address]Dr. Jaime Brooks AUTO DIFFon [id number] # 0.1 103/ulNormal0.0-0.1The [facility] HospitalComment on above:Performed By: #### CBC #### [facility] [address] [address] [address] Jaime LandaBasophils/100 WBC (Bld)0.9 %Normal0.2-2.0[facility] Comment on above:Performed By: #### CBC #### [facility] [address] [address] [address] Jaime Walter #0.5 103/ulNormal0.0-0.7The [facility] HospitalComment on above: Performed By: #### CBC #### [facility] [address] [address] [address] Jaime Romanosinophils/100 WBC (Bld)5.1 %Normal0.9-7.0The [facility] Comment on above:Performed By: #### CBC #### [facility] [address] [address] [address] Jaime Romanrythrocyte distribution width (RBC) [Ratio]12.7 %Tamijq98.0-15.0 The [facility] HospitalComment on above:Performed By: #### CBC #### [facility] [address] [address] [address] Jaime LandaHematocrit (Bld) [Volume fraction]42.6 %Dfybgv60.0-54.0The [facility] HospitalComment on above:Performed By: #### CBC #### [facility] [address] [address] [address] Jaime LandaHemoglobin (Bld) [Mass/Vol]14.7 g/aWPsgipt89.0-18.0The [facility] HospitalComment on above:Performed By: #### CBC #### [facility] [address] [address] [address] Jaime Gil #0.04 10e3/ulCritically high0.00-0.03The [facility] Comment on above:Performed By: #### CBC #### [facility] [address] [place] [address] Dr. Jaime Gil %0.4 %Normal0.0-0.5The [facility] HospitalComment on above: Performed By: #### CBC #### [facility] [address] [place] [address] Dr. Jaime Gunderson #2.9 103/ulNormal1.2-3.8The [facility] HospitalComment on above:Performed By: #### CBC #### [facility] [address] [place] [address] Dr. Jaime Balderashocytes/100 WBC (Bld)27.2 %Ivxqef15.5-60.0The [facility] HospitalComment on above:Performed By: #### CBC #### [facility] [address] [place] [address] Dr. Jaime AlarconUAL DIFF REQNONormalThe [facility] Systemment on above: Performed By: #### CBC #### [facility] [address] [place] [address] Dr. Jaime Alcaraz (RBC) [Entitic mass]30.0 rnRplacg43.9-34.0The [facility] Systemment on above:Performed By: #### CBC #### [facility] [address] [place] [address] Dr. Jaime Alcaraz (RBC) [Mass/Vol]34.5 g/lPLldyym34.9-35.2The [facility] Systemment on above:Performed By: #### CBC #### [facility] [address] [place] [address] Dr. Jaime Alcaraz (RBC) [Entitic vol]86.9 vZHbvrmf15.0-94.0The [facility] HospitalComment on above:Performed By: #### CBC #### [facility] [address] [address] [address] Jaime Feng #1.2 103/ulCritically high0.3-0.8The [facility] Comment on above:Performed By: #### CBC #### [facility] [address] [address] [address] Jaime Ariasocytes/100 WBC (Bld)10.9 %Normal1.7-12.0[facility] Comment on above:Performed By: #### CBC #### [facility] [address] [place] [address] Dr. Jaime La #5.9 103/ulNormal1.4-6.5The [facility] HospitalComment on above:Performed By: #### CBC #### [facility] [address] [place] [address] Dr. Jaime Segalutrophils/100 WBC (Bld)55.5 %Ewphkw58.0-75.0The [facility] HospitalComment on above:Performed By: #### CBC #### [facility] [address] [place] [address] Dr. Jaime Helm mean volume (Bld) [Entitic vol]9.9 fLNormal9.5-13.5The [facility] HospitalComment on above:Performed By: #### CBC #### [facility] [address] [place] [address] Dr. Jaime LandaPLT229 103/agIrtqst149-291Olj [facility] HospitalComment on above: Performed By: #### CBC #### [facility] [address] [place] [address] Dr. Jaime LandaRBC4.90 106/ulNormal4.70-6.10The [facility] HospitalComment on above:Performed By: #### CBC #### [facility] [address] [place] [address] Dr. Jaime LandaWBC10.6 103/ulNormal4.0-11.0The [facility] HospitalComment on above:Performed By: #### CBC #### [facility] [address] [address] [address] Jaime LandaLIPASEon 01-94-1606Rhyxco [Catalytic activity/Vol]89.0 U/LNormal 73.0-393.0The [facility] HospitalComment on above:Performed By: #### HSTROPN, CMP, LIPA ####[facility] [address] [address]Dr. Cristinalan ChangPROF 14(COMP METB)on 81-19-0491Sbcfewt [Mass/Vol]3.8 g/dL Normal3.4-5.0The [facility] HospitalComment on above:Performed By: #### HSTROPN, CMP, LIPA ####[facility] [address] [address]Dr. Jaime ChangAlbumin/Globulin [Mass ratio]1.1 {ratio}NormalThe [facility] HospitalComment on above:Performed By: #### HSTROPN, CMP, LIPA ####[facility] [address] [address]Dr. Cristinalan ChangALP [Catalytic activity/Vol]78 U/TJcfrzj92-402Jkm [facility] Systemment on above: Performed By: #### HSTROPN, CMP, LIPA ####[facility] [address] [address]Dr. Jaime ChangALT [Catalytic activity/Vol]19 U/L Kvulih17-22Btx [facility] HospitalComment on above:Performed By: #### HSTROPN, CMP, LIPA ####[facility] [address] [address]Dr. Cristinalan ChangAnion gap [Moles/Vol]12.9 mmol/LNormalThe [facility] Comment on above:Performed By: #### HSTROPN, CMP, LIPA ####[facility] [address] [address]Dr. Cristinalan ChangAST [Catalytic activity/Vol]11 U/LCritically xuc93-57Tnj [facility] HospitalComment on above: Performed By: #### HSTROPN, CMP, LIPA ####[facility] [address] [address]Dr. Yilan ChangBilirubin [Mass/Vol]0.4 mg/dL Normal0.2-1.0The [facility] HospitalComsparrow [facility] hospital on above:Performed By: #### HSTROPN, CMP, LIPA ####[facility] [address] [address]Dr. Yilan ChangCalcium [Mass/Vol]9.2 mg/dLNormal8.5-10.1The [facility] HospitalComment on above:Performed By: #### HSTROPN, CMP, LIPA ####[facility] [address] [place], [place] [address]Dr. Yilan Landa Chloride [Moles/Vol]101 mmol/XWreocy67-591Lgj [facility] on above: Performed By: #### HSTROPN, CMP, LIPA ####[facility] [address] [place], [place] [address]Dr. Yilan ChangCO2 [Moles/Vol]27.2 mmol/LNormal 21.0-32.0The [facility] on above:Performed By: #### HSTROPN, CMP, LIPA ####[facility] [address] [place], [place] [address]Dr. Yilan ChangCreatinine [Mass/Vol]1.10 mg/dLNormal0.70-1.30The [facility] on above:Performed By: #### HSTROPN, CMP, LIPA ####[facility] [address] [place], [place] [address]Dr. Yilan ChangEGFR- AF SWEDISH>60Normal>=60The [facility] HospitalComment on above:Performed By: #### HSTROPN, CMP, LIPA ####[facility] [address] [place], [place] [address]Dr. Yilan ChangEGFR-NON AF SWEDISH>60Normal>=60The [facility] HospitalComment on above:Performed By: #### HSTROPN, CMP, LIPA ####[facility] [address] [address]Dr. Yilan ChangGlobulin (S) [Mass/Vol]3.4 g/dLNormCrystal Clinic Orthopedic CenterComment on above:Performed By: #### MEHNAZTROPN, CMP, LIPA ####[facility] [address] [address]Dr. Yilan ChangGlucose [Mass/Vol]135 mg/dL Critically boww65-390Jjz [facility] HospitalComment on above:Performed By: #### HSTROPN, CMP, LIPA ####[facility] [address] [address]Dr. Yilan ChangPotassium [Moles/Vol]3.1 mmol/L Critically low3.5-5.1The [facility] HospitalComment on above:Performed By: #### MEHNAZTROPThai CMP, LIPA ####[facility] [address] [address]Dr. Yilan ChangProtein [Mass/Vol]7.2 g/dLNormal6.4-8.2 The [facility] HospitalComment on above:Performed By: #### MEHNAZTROPN CMP, LIPA ####[facility] [address] [address]Dr. Yilan ChangSodium [Moles/Vol]138 mmol/LHmciad152-237Lay [facility] HospitalComment on above:Performed By: #### HSTROPN, CMP, LIPA ####[facility] [address] [address]Dr. Yilan ChangUrea nitrogen [Mass/Vol]7.0 mg/dLNormal7.0-18.0The [facility] HospitalComment on above:Performed By: #### HSTROPN, CMP, LIPA ####[facility] [address] [address]Dr. Yilan ChangUrea nitrogen/Creatinine [Mass ratio] 6.4 mg/mgNormCrystal Clinic Orthopedic CenterComment on above:Performed By: #### HSTROPN, CMP, LIPA ####[facility] [address] [place], [place] [address]AsDr. Jaime Flores, HIGH SENSITIVITYon 03-85-7655XFEGLN0.3 pg/mLNormal 4.0-76.1The [facility] HospitalComment on above:Result Comment: CUT-OFF POINTS HAVE BEEN ESTABLISHED BASED ON THE FOURTH UNIVERSAL DEFINITIONS OF MYOCARDIAL INFARCTION. THE UPPER REFERENCE LIMIT (URL) OF TROPONIN, DEFINED THE 99TH PERCENTILE OF cTnI DISTRIBUTION IN A REFERENCE POPULATION, HAS BEEN CONFIRMED THE DECISION THRESHOLD FOR MT DIAGNOSIS.Performed By: #### HSTROPN, CMP, LIPA #### [facility] [address] [place], [place] [address] Dr. Jaime LandaNM HEPATOBILIARY SCAN W EFon [id number] HEPATOBILIARY SCAN W EF EXAMINATION: NM HEPATOBILIARY [...] Electronically authenticated by: NEIL MILIAN Date: 2022-01-08 09:58[facility] Vital Signs Date TimeVital SignValuePerforming OiyvfufdzAyntabaj90-78-8763 08:49-0400Body dwenke271.64 cmEdwina Carty APRN Work Phone: [facility]10-14-2025 08:49-0400 Body mass index (BMI) [Ratio]32.5 kg/h1QjmlxylmEdwina Carty APRN Work Phone: [facility]10-14-2025 08:49-0400 Body osieal84.6 kgEdwina Carty SECURITY SYSTEMS ADMINISTRATOR Work Phone: [facility]10-15-2024 09:30-0400 Body .64 cmAPRN Edwina Randrbacher Work Phone: [facility]10-15-2024 09:30-0400 Body mass index (BMI) [Ratio]33.7 kg/m2APRThai Randrbacher Work Phone: [facility]10-15-2024 09:30-0400 Body fxdoww30 kgAPRThai Harleyacher Work Phone: [phone]06-17-2024 09:35-0400 Body txschi928.64 cmJoint [facility]06-17-2024 09:35-0400Body mass index (BMI) [Ratio]34.2 kg/s8IrwkdtuvvJoint [facility] District [facility]06-17-2024 09:35-0400Body carjni31.16 kgJoint [facility]06-17-2024 09:35-0400Diastolic blood qrigmhsh44 mm[Hg][facility] 11-28-2023 09:35-0400Heart rate65 /minJoint Township District Memorial Hospital 11-28-2023 09:35-0040ZiR5% (BldA) [Mass fraction]96 %[facility]06-17-2024 09:35-0400Systolic blood gadxyrnk303 mm[Hg][facility]12-19-2023 13:30-0500Body jxxwke879.64 cmEdwina Randrbacher Other [employer] Other 12-19-2023 13:30-0500Body mass index (BMI) [Ratio] 35.18 kg/r8Edvngwtg Rohrbacher Other [employer] Other 12-19-2023 13:30-0500Body nizywd37.88 kgEdwina Carty Other [employer] Other 12-19-2023 13:30-0500Diastolic blood mm[Hg] Edwina Carloz Other [employer] Other 12-19-2023 13:30-5489UtJ4% (BldA) [Mass fraction]97 % Edwina Carty Other [employer] Other 12-19-2023 13:30-0500Systolic blood duzykhql623 mm[Hg] Edwina Carty Other [employer] Other 02-13-2023 13:00-0500Blood Pressure LocationPatrick [employer] [facility]02-13-2023 13:00-0500Diastolic blood wxjztzho16 mm[Hg]Abdiel [employer] [facility]02-13-2023 13:00-0500Heart rate80 /minPatrick ROSAS [facility]02-13-2023 13:00-0500Respiratory rate16 /minPatrick ROSAS [facility]02-13-2023 13:00-0500Systolic blood xfhuuffk209 mm[Hg]Abdiel [employer] [facility]10-25-2022 10:00-0400Body tmsezs276.64 cmJustin George Other [employer] Other 10-28-2021 10:00-0400Body pqmxyy929.64 cmDazari George Other [employer] Other 10-28-2021 10:00-0400Body mass index (BMI) [Ratio] 35.67 kg/m2Dazari George Other [employer] Other 10-28-2021 10:00-0400Body .25 kgDale George Other [employer] Other 60-21148290-50-6225 10:00-0400Diastolic blood nkiyegkg69 mm[Hg] Justin Doris Other [employer] Other 10-28-2021 10:00-0400Systolic blood ccgypxdv674 mm[Hg] Justinhernán George Other [employer] Other Encounters Encounter DateEncounter Type[facility] ProviderFacilityStart: 03-26-2025 End: 99-33-3097Padsxbx encounter procedureOriana Znuiga APRN-[facility] Work Phone: start: 03-26-2025 End: 74-45-8744iltktxaqlnMlmzfnkuChris Carty APRN Work Phone: [facility] Work Phone: Start: 05-21-2024 End: 51-03-3679bnarctxsjhPuypukux RohrbacherFacility:[facility]: 03-27-2024 End: 57-24-9342afaugabnmqFAZU Jennifer Rohrbacher Work Phone: [facility] Work Phone: Start: 03-27-2024 End: 58-90-5611Enwphpb encounter procedureDAVID Carty Work Phone: [facility] Physician [facility] Neurosurgery Work Phone: start: 11-28-2023 End: 62-05-6297cylmagmgnjPleevubirUniversity Hospitals Samaritan [facility] Center Work Phone: Start: 11-28-2023 End: 62-87-6429Brsfwka encounter [facility]Select [facility] Medical [facility] Work Phone: Start: 06-20-2023 End: 95-63-9121kdpsulheclIoyhagdd Rohrbacher Other noCobra Stylet Other Start: 66-14-6407Cdaslpfdn encounterJennisidro HarleyUintah Basin Medical Centertart: 05-31-2023 End: 87-21-7252ntslqgvjvzLcvooprx Rohrbacher Other noCobra Stylet Other Start: 70-71-6662Spvkxf outpatient new 30 minutes [facility] 03-29-2023 End: 66-52-9937srwnguoyrdJDX STAFFRegency Hospital [facility]tr Work Phone: Start: 03-29-2023 End: 94-85-5681Amwrayn encounter procedure Justin George Work Phone: [facility] Work Phone: Start: 07-28-2022 End: 12-08-5289lowfngtpwgAR BLAS [place]OO[place]IE .Facility:N1Hwthv: 07-26-2022 Encounter for preprocedural laboratory examinationDR BL[place]IE .[facility] 07-26-2022 End: 78-77-9869ptvqldfzpuOD Patrick R WATERSFacility:[facility]art: 07-26-2022 End: 07-05-3677Ekgtrpi encounter procedureAbdiel ROSAS [facility] start: 07-22-2022 End: 90-28-3690dyevutrwfaTO [place]IE .Facility:O7Eaaza: 07-22-2022 End: 70-16-9406Tbqfdyvrk for preprocedural laboratory examinationDR [place]IE .Facility:D7Qfhwi: 05-17-2022 End: 74-27-3821bawojjmkcaHV ABDIEL ROSAS .Facility:M9Qmbfl: 04-12-2022 End: 15-68-6770ssgkngaeycJE AVERY ROCK VIEWFacility:J3Fzqyy: 06-64-1730Mkdatx outpatient visit [address] [facility] NeurosurgeryStart: 04-06-2022 End: 10-41-6811lksdzqzxmdBA [facility] Work Phone: [place] [employer] Other start: 04-06-2022 End: 08-10-4599Aqqqqle encounter procedureDO Avery [place]boro Work Phone: [facility] Center[facility]: 03-17-2022 End: 45-25-9141bkrcjynuhaBA BL[place] .Facility:R7Atgjv: 03-13-2022 End: 20-71-3024rusjltpizlTD BL[place] .Facility:K6Rbkkc: 03-09-2022 End: 44-42-9974kzakzgeyzeSF MICHAEL E GRILLIS .Facility:F5Vdyxo: 01-13-2022 End: 88-60-1705vjtlicbfapLZ JADEN MARKER .Facility:M6Bdrfv: 01-08-2022 End: 33-97-5758izcciaopugVU AVERY ROCK VIEWFacility:E2Hnnwn: 04-98-8432Wbrmpn outpatient visit [address] [facility] Procedures DateProcedureProcedure DetailPerforming ClinicianStart: 81-69-1820X-ray of lumbar spine, four viewsEdwina Carty APRN Work Phone: Start: 21-57-8326V-ray of lumbar spine, four viewsAPRN Edwina Carty Work Phone: Start: 75-90-3022G-ray of lumbar spine, four viewsMD Justin George Work Phone: start: 91-27-4915YAY screeningDR AVERY GORDONComment on above:Performed By: #### PSAD #### [facility] [address] [address] [address] Jaime LandaStart: 22-76-8465W-ray of lumbar spine, four viewsDO Avery Gordon Work Phone: Start: 55-02-6378swgqz surgeryPaMatrix [employer] Management Start: 01-31-9721VjoulbubxsTbrvbmm WATERS Start: 31-39-4761LnmixmhieeAfkhynm WATERS Start: 77-02-8220QfmmwpucjrWjykrey WATERS Start: 18-10-1105Kbumcqx of external beam radiation therapyPa[employer] Management Comment on above:ProstateStart: 84-48-1051Uepbnhw retropubic prostatectomy with bilateral pelvic lymphadenectomyPaMatrix Asset Management appendectomyStkr.it CholecystectomyStkr.it Extraction of cataractPa[employer] Plan of Treatment DateCare ActivityDetailAuthorStart: 68-63-8476X-ray of lumbar spine, four views XR lumbar spine AP/LAT/FLX/EXTLake County [facility] Hospital [facility] Westtart: 03-27-2024 X-ray of lumbar spine, four viewsXR lumbar spine AP/LAT/FLX/EXTLake County Memorial Hospital - Westtart: 99-39-5050GX Lumbar spine 4 [facility] CenterComprehensive [facility] 2000 panel - Serum or Plasma [facility] HospitalXR Lumbar spine 4 [facility] CenterXR Lumbar spine [facility] Immunizations Immunization DateImmunizationNotesCare LgfkrmviTxbhzqpd59-53-1383VZOR-SiS-4 (COVID-19) mRNAMUL.ORD!y54095MpsxcxmAbdiel ROSAS [facility]11-23-2021SARS-CoV-2 (COVID-19) mRNA BNT-162b2 noeTOOVIA [facility]03-23-2021SARS-CoV-2 (COVID-19) mRNA BNT-162b2 ainsleycookdinnerphillip [employer] [facility]03-01-2021SARS-CoV-2 (COVID-19) mRNA BNT-162b2 noeStkr.it [facility]10-15-2020influenza virus vaccine, unspecified formulationGateway Rehabilitation Hospitalphillip ROSAS [facility]10-13-2010influenza, wholeJanesville ROSAS [facility] Payers DatePayer CategoryPayerPolicy [id number] 1960Medicare [id number] [id number] 2.840.1.255567.3.579.2.727 [id number] 2.16840.1.778993.3.57[id number] 2.16.840.1.341580.3.57[id number] 2.16.840.1.486770.3.57[id number] 2.16.840.1.013507.3.57[id number] 2.16.840.1.133533.3.57[id number] 2.16.840.1.914503.3.57[id number] 2.16.840.1.925737.3.57[id number] 2.16.840.1.606417.3.57[id number] 2..0.1.738682.3.579.2.593Private Health InsuranceMercy Health St. Elizabeth [facility] [id number]-nmyImno Pay [id number] Social History DateTypeDetailFacilityUnknown if ever smokedNort Secur[employer] Other sex Assigned At [facility] Start: 04-09-2018 End: 14-23-6008Ptxpwcs smoking status NHISNever smoked tobacco (finding) [facility]tart: 06-91-6348Ntp Assigned At [facility] HospitalTobacco smoking statusNeverExec[facility] BellevueSexMale (finding)[facility] Medical Equipment Procedure CodeEquipment CodeEquipment Original TextEquipment IdentifierDates ALLOGRAFT 12MM TLIF LORDOTICFDAStart: 31-25-9383DUCEC SET CAPLOX IIFDAStart: 68-30-3474UQSQV SET CAPLOX IIFDAStart: 97-97-9566TDOTI SET CAPLOX IIFDAStart: 43-27-8830DUQCE SET CAPLOX IIFDAStart: 46-62-6652YGPLQXZLL CAPLOX II MEDIUMFDA Start: 89-10-7392NPQFUKUZ GRANULES 5CCFDAStart: 94-08-9164MFL 40MM CVD CAPLOX II FDAStart: 73-82-3334SQN 40MM CVD CAPLOX IIFDAStart: 32-27-6148SZJJY 6.5 X 55MM CAPLOX IIFDAStart: 49-22-9559NGOQN 6.5 X 55MM CAPLOX IIFDAStart: 80-50-4298IMSLO 6.5 X 55MM CAPLOX IIFDAStart: 69-95-1508ZOFSC 6.5 X 55MM CAPLOX IIFDAStart: 69-39-8455CNIQMBZAV 12MM TLIF LORDOTICFDAStart: 75-32-4068KXUPF SET CAPLOX IIFDA Start: 95-35-5603UDEIS SET CAPLOX IIFDAStart: 82-63-9160XPIZD SET CAPLOX IIFDA Start: 15-77-9357UTHHV SET CAPLOX IIFDAStart: 79-04-6220BQRHTHOCK CAPLOX II MEDIUMFDAStart: 26-85-8180KFBZXVDD GRANULES 5CCFDAStart: 25-03-3237PPQ 40MM CVD CAPLOX IIFDAStart: 06-71-9277EWB 40MM CVD CAPLOX IIFDAStart: 59-33-5453CSQND 6.5 X 55MM CAPLOX IIFDAStart: 80-91-9285CEMLN 6.5 X 55MM CAPLOX IIFDAStart: 04-34-2519SVNUR 6.5 X 55MM CAPLOX IIFDAStart: 44-45-9080NNEWB 6.5 X 55MM CAPLOX IIFDAStart: 72-20-5995PENSHZVJV 12MM TLIF LORDOTICFDAStart: 92-56-7859AXOEV SET CAPLOX IIFDAStart: 51-48-8362OTDUA SET CAPLOX IIFDAStart: 05-60-6393HYCRP SET CAPLOX IIFDAStart: 42-94-4612VHROE SET CAPLOX IIFDAStart: 51-03-6775RIXZNXGMN CAPLOX II MEDIUMFDAStart: 21-87-1856YOOZTSQU GRANULES 5CCFDAStart: 13-13-3879KQU 40MM CVD CAPLOX IIFDAStart: 56-95-8033NAC 40MM CVD CAPLOX IIFDAStart: 24-53-7816UCDMR 6.5 X 55MM CAPLOX IIFDAStart: 04-30-3089YAAPO 6.5 X 55MM CAPLOX IIFDAStart: 70-19-2741OPFTZ 6.5 X 55MM CAPLOX IIFDAStart: 48-59-8844XVNAY 6.5 X 55MM CAPLOX IIFDAStart: 69-55-2536SSNKZLVMJ 12MM TLIF LORDOTICFDAStart: 19-83-8966AHITB SET CAPLOX IIFDAStart: 29-21-7978PBHLN SET CAPLOX IIFDAStart: 56-74-9779BMOXE SET CAPLOX IIFDAStart: 50-39-4497IIUKZ SET CAPLOX IIFDAStart: 61-47-2402XCEBYANKJ CAPLOX II MEDIUMFDAStart: 46-81-2463BIBKJFNF GRANULES 5CCFDA Start: 69-10-8325RLD 40MM CVD CAPLOX IIFDAStart: 27-41-7764XEC 40MM CVD CAPLOX IIFDAStart: 27-73-1123KWDJX 6.5 X 55MM CAPLOX IIFDAStart: 89-42-4343ISPLR 6.5 X 55MM CAPLOX IIFDAStart: 19-77-0443POQWL 6.5 X 55MM CAPLOX IIFDAStart: 03-27-2018 SCREW 6.5 X 55MM CAPLOX IIFDAStart: 21-88-7000ELCVBWVSC 12MM TLIF LORDOTICFDA Start: 17-91-5742WMOAW SET CAPLOX IIFDAStart: 95-86-1916HHOIN SET CAPLOX IIFDA Start: 84-99-8479ZVJLI SET CAPLOX IIFDAStart: 93-56-0278MWCFT SET CAPLOX IIFDA Start: 66-40-7206HBHWMCOKN CAPLOX II MEDIUMFDAStart: 80-49-5349XOJQIQIF GRANULES 5CCFDAStart: 43-78-2666VFK 40MM CVD CAPLOX IIFDAStart: 72-91-1651UEQ 40MM CVD CAPLOX IIFDAStart: 56-32-8730RDPED 6.5 X 55MM CAPLOX IIFDAStart: 17-41-1115ERGPM 6.5 X 55MM CAPLOX IIFDAStart: 04-41-4758YDYOL 6.5 X 55MM CAPLOX IIFDAStart: 33-00-1540DWRWT 6.5 X 55MM CAPLOX IIFDAStart: 37-44-2593NHKWBWLAL 12MM TLIF LORDOTICFDAStart: 18-32-1144WAZAD SET CAPLOX IIFDAStart: 79-92-4322DKIWL SET CAPLOX IIFDAStart: 86-13-8616QNGMZ SET CAPLOX IIFDAStart: 54-84-7362FDKPF SET CAPLOX IIFDAStart: 27-55-8852MRXGRITUC CAPLOX II MEDIUMFDAStart: 03-27-2018 OSTEOAMP GRANULES 5CCFDAStart: 00-06-4203AJT 40MM CVD CAPLOX IIFDAStart: 32-92-1651YOZ 40MM CVD CAPLOX IIFDAStart: 99-73-1492UAGVJ 6.5 X 55MM CAPLOX II FDAStart: 37-56-5852INCOQ 6.5 X 55MM CAPLOX IIFDAStart: 12-87-9635FYDEE 6.5 X 55MM CAPLOX IIFDAStart: 30-38-8705CPEBW 6.5 X 55MM CAPLOX IIFDAStart: 03-27-2018 ALLOGRAFT 12MM TLIF LORDOTICFDAStart: 16-87-2484KJDRW SET CAPLOX IIFDAStart: 66-92-6788QSFUA SET CAPLOX IIFDAStart: 29-02-0934SAVFZ SET CAPLOX IIFDAStart: 13-24-4391XAFOG SET CAPLOX IIFDAStart: 50-51-4630KKHTKKVRU CAPLOX II MEDIUMFDA Start: 56-86-6348QOFHRWOO GRANULES 5CCFDAStart: 77-45-7155HZL 40MM CVD CAPLOX II FDAStart: 63-13-4520FHP 40MM CVD CAPLOX IIFDAStart: 87-43-1318MPQIX 6.5 X 55MM CAPLOX IIFDAStart: 49-61-9844GSAZS 6.5 X 55MM CAPLOX IIFDAStart: 71-84-1977HAGEW 6.5 X 55MM CAPLOX IIFDAStart: 25-06-4011KLBLQ 6.5 X 55MM CAPLOX IIFDAStart: 03-27-2018 Functional Status SvtfDtrkavbjutVubseaYrxzznuz05-21-3614Zwjofdrwyp StatusN/AExec[facility] Clinical Notes 04-09-2021 to 03-26-2025 Note Date & HzsuKtoaAyshvxkr12-67-0006 Evaluation note* Diagnosis Onset Date Resolution Status Admit Date S/P lumbar fusion acuteOctober 2024 8:47am [facility] Work Phone: [phone] Evaluation note* Encounter Date Diagnosis Assessment Notes Treatment Notes Treatment Clinical Notes May, History of prostate cancer (ICD- 10 - Z85.46) Risks and benefits of PSA screening discussed with patient today. Patient wishes to get PSA screening done. PSA screening lab ordered today. May,rimary hypertension (ICD-10 - I10)To goal. Prior to your visit today we [...] You have been given relevant education handouts. May,Screening for prostate cancer (ICD-10 - Z12.5) May,astroesophageal reflux disease without esophagitis (ICD-10 - K21.9) Reflux symptoms remain unchanged. Discussed the importance of meal content. They should avoid overeating and eating meals late in the evening. Take medication as directed and we will continue to monitor. May,Seasonal allergies (ICD-10 - J30.2)Reports that symptoms are well controlled on the Fenofexadine. [employer] Other 02-13-2023 Hospital Discharge instructions Patient Education [...] if anything looks unusual. Men with a mmfqwb-ygwo-zykeys risk for skin cancer may want to see a security services specialist (safe and vault service mechanic) for an annual body check. Where to find more information National Cancer [place]: https://www.cancer.gov/about-cancer/screening Centers for Disease Control and Prevention: https://www.cdc.gov/cancer/dcpc/prevention/screening.htm [place] [employer]: https://www.cancer.org/latest-news/1-dplcbp-vbfvpakon-toagw-xwl-kav.html Contact a health care provider if: You [...] 02/24/2017 Document Revised: 02/16/2019 Document Reviewed: 02/24/2017 [employer] Patient Education 2020 [place]. Follow Up Care 05/29/2021 09:36:17 With:ARIANNA HUTTON, Abdiel Wilkerson, URL Address: [facility] [address] , [place] [address]- When: Unknown [facility] 10-25-2022 Evaluation note* Encounter Date Diagnosis Assessment [...] again in a year with another xray. Mar,pondylolisthesis, lumbar region (ICD-10 - M43.16) [employer] Other 10-28-2021 Evaluation note* Encounter Date Diagnosis Assessment Notes Treatment Notes Treatment Clinical Notes Mar, Spondylolisthesis of lumbar cathi on (ICD-10 - M43.16) I have independently reviewed [...] him again in a year for reevaluation. 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) Mar,umbar radiculopathy (ICD-10 - M54.16) [employer] Other evaluation + Plan note No data available for this section [facility] evaluation noteNo assessment information available [facility] Work Phone: Evaluation noteNo InformationN[employer] Other Evaluation note* Diagnosis Onset Date Resolution Status Gastroesophageal reflux disease without esophagitis acuteHistory of prostate canceracuteHypertriglyceridemiaacuteMedicare annual wellness visit, subsequentacutePrimary hypertensionacute [facility] Work Phone: Evaluation note* Diagnosis Onset Date Resolution Status S/P lumbar fusion acute [facility] Work Phone: History general Narrative - Reported* Type Description Date Medical History Prostate cancer Medical HistoryCannot take pain medication- such as NSAIDS due to past radiation Surgical HistoryAppendectomySurgical HistoryProstateHospitalization HistorySEE ABOVE [employer] Other History general Narrative - Reported* Type Description Date Medical History Prostate cancer Medical HistoryCannot take pain medication- such as NSAIDS due to past radiation Medical HistoryHTNSurgical HistoryAppendectomySurgical HistoryProstateSurgical HistoryBack surgerySurgical HistoryOral SurgerySurgical HistoryGallbladder Surgical HistoryCyst on neckSurgical HistoryCataractsHospitalization HistorySEE ABOVE [employer] Other Progress note No data available for this section [facility] reason for referral (narrative)No reason for referral information availableSycamore Medical Center Work Phone: Chief Complaint and Reason for Visit Chief Complaint M54.16 Chief Complaint M43.16 Chief Complaint 6 month follow up Reason for Visit Gastroesophageal ref lux disease without esophagitis History of prostate cancer Hypertriglyceridemia Medicare annual wellness visit, subsequent Primary hypertension Chief Complaint m48.06 yrly f/u PLIF w/x-ray Chief Complaint m48.06 yrly f/u PLIF w/x-rayReason for VisitS/P lumbar fusion Chief Complaint Admit Date M48.06 March 26, 2025 8 :01am yearly follow PLIF w/xray March 26, 2025 8:47am Reason for Visit Admit Date S/P lumbar fusion March 26, 2025 8 :47am Advance Directives Advance Directive Response Recorded Date/ Time Advance Directives No October 10, 2 018 5:03pm Summary Purpose Family History Relationship Condition Age at Onset Recorded Date/T cedrick father Unknown Not SpecifiedDeceasedUnknownMalignant neoplasmUnknown Relationship Condition Age at Onset Recorded Date/T cedrick father Unknown motherDeceasedUnknownMalignant neoplasmUnknown Additional Source Comments REASON FOR VISIT (unrecogniz ed section and content) yearly f/u PLIF 2018yearly f /u plif W XRAYestablishlab results Care Teams (unrecognized sec tion and content) Team Status: Inactive Member Role Status Dates Avery Gordon DO Primary Care Provider Active Justin George MDAttending ProviderActive Team Status: Active Member Role Status Dates Avery Gordon DO Primary Care Provider Active Team Status: Active Member Role Status Dates NON STAFF Primary Care Provider Active Team Status: Inactive Member Role Status Dates Justin George MD Attending Provider Active NON STAFFPrimary Care ProviderActive Team Status: Active Member Role Status Dates Edwina Carty APRN HORIZONTAL DRILL OPERATOR-C Primary Care Provider Active Team Status: Inactive Member Role Status Dates Edwina Carty APRN NP-C Primary Care Provider, Attending Provider Active Start: November 28, 2023 End: November 28, 2023 Team Status: Active Member Role Status Dates Edwina Carty APRN NP-C Primary Care Provider Active Start: March Anant Garcia ProviderActiveStart: March 27, 2024 Team Status: Inactive Member Role Status Dates Edwina Carty APRN NP-Carlyn Primary Care Provider Active Start: March End: March 27, 2024Anant Garcia ProviderActiveStart: March 27, 2024 End: March 27, 2024 Team Status: Active Member Role Status Dates Edwina Carty APRN NP-C Primary Care Provider Active Start: March Anant Garcia ProviderActiveStart: March 26, 2025 Team Status: Inactive Member Role Status Dates Edwina Carty APRN NP-C Primary Care Provider Active Start: March End: March 26, 2025Anant Garcia ProviderActiveStart: March 26, 2025 End: March 26, 2025 Goals (unrecognized section and content) Goals may be documented in a n alternate section (unrecognized sect ion and content) No Status Records FoundNo Status Records FoundNo Status Records Found INFORMATION SOURCE (unrecogn ized section and content) DATE CREATED AUTHOR 07/27/2022 [facility] DATE CREATED AUTHOR AUTHOR'S ORGANIZ ATION 08/04/2022 [facility] DATE CREATED AUTHOR AUTHOR'S ORGANIZ ATION 03/27/2025 [facility] FOR RECORDS PERTAINING TO PATIENTS WHO [...] BE BASED ON THE PRIMARY CLINICAL RECORDS. [facility] provides no warranty or guarantee of the accuracy or completeness of information in this document.
[2025-06-11 09:01] LABS: Alanine Aminotransferase 19 U/L (16-63); Albumin Globulin Ratio 1.2; Albumin Level 4.0 g/dL (3.4-5.0); Alkaline Phosphatase 76 U/L (46-116); Anion Gap 11.2; Aspartate Amino Transferase 13 U/L (15-37); Blood Urea Nitrogen 8.0 mg/dL (7.0-18.0); Calcium 9.6 mg/dL (8.5-10.1); Carbon Dioxide 30.3 mmol/L (21.0-32.0); Chloride 98 mmol/L (98-107); Cholesterol 175 mg/dL (<=200); Estimated GFR (African America >60 (>=60 mL/min/1.73m^2); Estimated GFR (Non-African Ame >60 (>=60 mL/min/1.73m^2); Globulin 3.3 g/dL; Glucose 109 mg/dL (74-106); HDL Cholesterol 52 mg/dL (40-60); Potassium 3.5 mmol/L (3.5-5.1); Sodium 136 mmol/L (136-145); Total Protein 7.3 g/dL (6.4-8.2); Triglycerides 111 mg/dL (<=150); VLDL CHOLESTEROL 22.2 mg/dL
[2025-06-11 09:12] LABS: Hematocrit 45.7 % (42.0-54.0); Hemoglobin 15.7 g/dL (14.0-18.0); Immature Granulocytes Abs Auto 0.04 10^3/uL (0.00-0.03); Immature Granulocytes Pct Auto 0.5 % (0.0-0.5); Lymphocytes Absolute Auto 2.0 10^3/uL (1.2-3.8); Mean Corpuscular HGB Conc 34.4 g/dL (29.9-35.2); Mean Corpuscular Hemoglobin 30.0 pg (25.9-34.0); Mean Corpuscular Volume 87.2 fL (80.0-94.0); Platelet Count 234 10^3/uL (150-450); Red Blood Count 5.24 10^6/uL (4.70-6.10); White Blood Count 8.8 10^3/uL (4.0-11.0)
== END 2025-06-11 08:25 | disposition home or self-care (01) ==
LOC: LAB 08:27
PROVIDERS: PCP Nurse Practitioner Family; Visit Provider Nurse Practitioner Family
DX: R73.01 Impaired fasting glucose (principal); E78.1 Pure hyperglyceridemia; Z85.46 Personal history of malignant neoplasm of prostate; I10 Essential (primary) hypertension; Z12.5 Encounter for screening for malignant neoplasm of prostate
CPT/HCPCS: 36415; 80053; 80061; 85025; G0103